=== PATIENT | female | born 1995 | race Caucasian/White ===

== ENCOUNTER 2022-07-17 15:24 | Outpatient (CLI) | payer OTHER, SELFPAY ==
--- NOTE | ~2022-07-17 | XR_ITS ---
EXAMINATION: XR foot RT min 3V DATE: 07/17/2022 16:15 INDICATION: Right foot pain TECHNIQUE: Dorsoplantar, lateral, and 2 oblique views of the right foot were obtained. COMPARISON: None. FINDINGS: There is no fracture, dislocation, or subluxation. The bones, soft tissues, and joint space s are normal. IMPRESSION: 1. No acute osseous abnormality. Reviewed, dictated and finalized at location B.
== END 2022-07-17 15:25 | disposition home or self-care (01) ==
DX: M79.671 Pain in right foot (principal)
CPT/HCPCS: 73630

== ENCOUNTER 2024-05-13 09:31 | Outpatient (CLI) | payer OTHER, SELFPAY ==
[2024-05-13 10:04] VITALS: BP 139/78; PULSE 76
[2024-05-13 10:09] LABS: Basophils Absolute Auto 0.1 K/mm3 (0.0-0.1); Basophils Percent Auto 0.5 % (0.2-1.2); Eosinophils Absolute Auto 0.1 K/mm3 (0-0.3); Eosinophils Percent Auto 1.3 % (0-4.4); Hematocrit 40.6 % (37.0-47.0); Hemoglobin 13.6 g/dL (12.0-15.0); Immature Granulocyte Absolute 0.14 K/mm3 (0.00-0.031); Immature Granulocyte Percent A 1.3 % (0-0.5); Lymphocytes Absolute Auto 1.79 K/mm3 (0.9-3.2); Lymphocytes Percent Auto 16.2 % (18.3-44.2); Mean Corpuscular HGB Conc 33.5 g/dl (32-36); Mean Corpuscular Hemoglobin 30.8 pg (26-34); Mean Corpuscular Volume 91.9 fl (80-100); Monocytes Absolute Auto 0.8 K/mm3 (0.1-0.6); Monocytes Percent Auto 6.8 % (2.6-8.5); Neutrophils Absolute Auto 8.2 K/mm3 (1.3-6.7); Neutrophils Percent Auto 73.9 % (45.5-73.1); Platelet Count Result 161 k/mm3 (150-375); Red Blood Count 4.42 M/mm3 (4.2-5.4); White Blood Count 11.1 K/mm3 (4.5-10.0)
[2024-05-13 10:15] VITALS: BP 124/87; PULSE 75
[2024-05-13 10:15] LABS: Appearance Urine Clear (Clear); Bacteria Urine 3+ /hpf; Bilirubin Urine Negative (Negative); Blood Urine Negative (Negative); Color Urine Yellow (Yellow); Glucose Urine UA Negative (Negative); Ketones Urine Negative (Negative); Leukocyte Esterase Ur Trace LEU/UL (Negative); Nitrate Urine Negative (Negative); Non Pathogenic Casts 0-2; Protein Urine Negative (Negative); Specific Grav Ur 1.013 (1.001-1.035); Squamous Epithelial Cell Urine Few /hpf (Few); Urobilinogen Urine 0.2 mg/dL (<2.0); pH Urine 7.5 (5.0-9.0)
[2024-05-13 10:22] LABS: Alanine Aminotransferase 26 U/L (6-35); Albumin Level 4.2 g/dL (3.5-5.1); Alkaline Phosphatase 163 U/L (38-126); Anion Gap 10 mmol/L (4-12); Aspartate Amino Transferase 26 U/L (14-36); Bilirubin,Total 0.8 mg/dL (0.2-1.3); Blood Urea Nitrogen 8 mg/dL (7-17); Calcium 9.3 mg/dL (8.4-10.2); Carbon Dioxide 21 mmol/L (22-30); Chloride 106 mmol/L (98-107); Estimated Glomerular Filt Rate > 60; Glucose 80 mg/dL (65-110); Potassium 4.1 mmol/L (3.4-5.0); Sodium 137 mmol/L (137-145); Uric Acid 4.1 mg/dL (2.5-7.5)
[2024-05-13 10:30] VITALS: BP 131/80; PULSE 77
[2024-05-13 10:36] LABS: Add Urine Microscopic? YES
[2024-05-13 10:37] LABS: Creatinine Urine 67.4 mg/dL; Total Protein Urine Random 8 mg/dL; Ur Ttl Prot Creatinine Ratio 0.12 mg/mg (0-0.20)
[2024-05-13 10:45] VITALS: BP 132/82; PULSE 77
== END 2024-05-13 11:00 | disposition home or self-care (01) ==
LOC: ANHOBOP 09:43 → ANHOBPP 09:48
PROVIDERS: Visit Provider Obstetrics & Gynecology
DX: O13.9 Gestational [pregnancy-induced] hypertension without significant proteinuria, unspecified trimester (principal); Z3A.00 Weeks of gestation of pregnancy not specified
CPT/HCPCS: 36415; 59025; 80053; 81001; 82570; 84156; 84550; 85025; 87086; 99199

== ENCOUNTER 2024-05-24 12:16 | Inpatient (IN) | payer OTHER, SELFPAY ==
[2024-05-24] VITALS (13 sets, daily range): BP systolic 117–145; BP diastolic 65–107; PULSE 73–107; BMI 33.2
[2024-05-24 13:24] LABS: Basophils Percent Auto 0.4 % (0.2-1.2); Eosinophils Absolute Auto 0.1 K/mm3 (0-0.3); Eosinophils Percent Auto 1.1 % (0-4.4); Hematocrit 39.1 % (37.0-47.0); Hemoglobin 13.2 g/dL (12.0-15.0); Immature Granulocyte Absolute 0.12 K/mm3 (0.00-0.031); Immature Granulocyte Percent A 1.1 % (0-0.5); Lymphocytes Absolute Auto 1.54 K/mm3 (0.9-3.2); Lymphocytes Percent Auto 13.7 % (18.3-44.2); Mean Corpuscular HGB Conc 33.8 g/dl (32-36); Mean Corpuscular Volume 91.8 fl (80-100); Mean Platelet Volume 12.1 fl (7.4-10.4); Monocytes Absolute Auto 0.8 K/mm3 (0.1-0.6); Monocytes Percent Auto 6.7 % (2.6-8.5); Neutrophils Absolute Auto 8.7 K/mm3 (1.3-6.7); Platelet Count Result 154 k/mm3 (150-375); Red Blood Count 4.26 M/mm3 (4.2-5.4); White Blood Count 11.3 K/mm3 (4.5-10.0)
[2024-05-24 13:38] LABS: Alanine Aminotransferase 43 U/L (6-35); Albumin Level 4.2 g/dL (3.5-5.1); Alkaline Phosphatase 189 U/L (38-126); Anion Gap 12 mmol/L (4-12); Aspartate Amino Transferase 26 U/L (14-36); Bilirubin,Total 0.8 mg/dL (0.2-1.3); Blood Urea Nitrogen 9 mg/dL (7-17); Calcium 9.5 mg/dL (8.4-10.2); Carbon Dioxide 18 mmol/L (22-30); Chloride 105 mmol/L (98-107); Estimated Glomerular Filt Rate > 60; Glucose 78 mg/dL (65-110); Potassium 3.9 mmol/L (3.4-5.0); Sodium 135 mmol/L (137-145); Uric Acid 4.2 mg/dL (2.5-7.5)
[2024-05-24] MEDS: miSOPROStol 25 MCG TABLET 50 MCG BUCCAL ×3 (13:38→22:36)
[2024-05-24 14:18] LABS: HIV 1/2 Ab P24 Ag Result Negative (Negative)
--- NOTE | 2024-05-24 16:34 | LDADM ---
This patient, Beata Martinez, was admitted to Labor/Delivery/Recovery 105 on 05/24/24 at 12:16. Plans for labor, pain management and were discussed with patient. Patient/family oriented to hospital policies and general routines including ID bracelet, bed and alarms, visiting hours, pain management, procedures, bathroom and other care routines, personal items, smoking policy, room service/diet and guest tray routines, infant security routines, and visiting hours. Patient/Family are encouraged to report perceived risks to care and to ask questions if they do not understand what they are told or what they should do. See OBIX for further documentation.
--- NOTE | 2024-05-24 17:23 | WPDANESEPP ---
Anes - Eval Pre Procedure Procedure: labor epidural Date/Time: 05/24/24 17:23 Pre Op Diagnosis: IOL Patient Data Age: 28 Gender: F Height: 1.6 m Weight: 85 kg Last Vital Signs Pulse 103 H 05/24/24 17:00 BP 145/98 H 05/24/24 17:00 O2 Del Method Room Air 05/24/24 16:32 Allergies Allergy/AdvReac Type Severity Reaction Status Date / Time PCN Allergy Intermediate Hives Uncoded 05/24/24 16:30 Home Medications Medication Instructions Recorded Confirmed Type vitamin with calcium 1 tablet PO DAILY 05/13/24 05/24/24 History no.72-iron 27 mg-folic acid 1 mg tablet (M- Plus) Laboratory Tests 05/24/24 13:01 WBC 11.3 H K/mm3 (4.5-10.0) RBC 4.26 M/mm3 (4.2-5.4) Hgb 13.2 g/dL (12.0-15.0) Hct 39.1 % (37.0-47.0) MCV 91.8 fl (80-100) MCH 31.0 pg (26-34) MCHC 33.8 g/dl (32-36) RDW 13.0 % (11.5-14.5) Plt Count 154 k/mm3 (150-375) MPV 12.1 H fl (7.4-10.4) Immature Gran % (Auto) 1.1 H % (0-0.5) Neut % (Auto) 77.0 H % (45.5-73.1) Lymph % (Auto) 13.7 L % (18.3-44.2) [place] % (Auto) 6.7 % (2.6-8.5) Eos % (Auto) 1.1 % (0-4.4) Baso % (Auto) 0.4 % (0.2-1.2) Lymph # (Auto) 1.54 K/mm3 (0.9-3.2) [place] # (Auto) 0.8 H K/mm3 (0.1-0.6) Eos # (Auto) 0.1 K/mm3 (0-0.3) Baso # (Auto) 0.0 K/mm3 (0.0-0.1) Abs Immat Gran (auto) 0.12 H K/mm3 (0.00-0.031) Absolute Neuts (auto) 8.7 H K/mm3 (1.3-6.7) Absolute Nucleated RBC 0.000 K/mm3 (0.0-0.012) Nucleated RBC % 0.0 % (0.0-0.2) Sodium 135 L mmol/L (137-145) Potassium 3.9 mmol/L (3.4-5.0) Chloride 105 mmol/L (98-107) Carbon Dioxide 18 L mmol/L (22-30) Anion Gap 12 mmol/L (4-12) BUN 9 mg/dL (7-17) Creatinine 0.60 L mg/dL (0.7-1.0) Estim Creat Clear Calc Not Reportable Estimated GFR > 60 (59 - ) Glucose 78 mg/dL (65-110) Uric Acid 4.2 mg/dL (2.5-7.5) Calcium 9.5 mg/dL (8.4-10.2) Total Bilirubin 0.8 mg/dL (0.2-1.3) AST 26 U/L (14-36) ALT 43 H U/L (6-35) Alkaline Phosphatase 189 H U/L (38-126) Total Protein 7.0 g/dL (6.3-8.2) Albumin 4.2 g/dL (3.5-5.1) RPR Pending HIV 1&2 Ab/P24 Ag 4thGn Negative (Negative) Blood Type A Positive Antibody Screen Negative Patient hx anesthesia problems: none Family hx anesthesia problems: none Results Review: All pre-operative results and documents have been reviewed as part of the pre-operative evaluation. [facility] Past Medical History Medical History PIH ( induced hypertension) Family History Family History Grandparent Diabetes mellitus Social History Social History Smoking status: Never smoker Substance use: never Do You Feel Safe in your Home?: Yes Lack of Transportation: No Lack of Food: Never True Current Housing: I Have Housing Concerned About Future Housing: No Difficulty Paying Gas/Electric Bills: No Difficulty Paying for Meds: No Currently Unemployed: No Education: Master's Degree or Higher Difficulty w/ Childcare or Family Care: No Spiritual care concerns: No Exam Day of Procedure 05/24/24 17:23 Patient weight: obese Heart: regular rate and rhythm Lungs: normal air movement Airway: Mallampati scale Neurological: alert and oriented
[2024-05-24] MEDS: ACETAMINOPHEN 500 MG TABLET 1000 MG PO (18:11)
[2024-05-25] VITALS (116 sets, daily range): BP systolic 76–146; BP diastolic 55–105; PULSE 65–142; RESP 16; TEMP 36.5–36.8; O2SAT 84–100
[2024-05-25] MEDS: miSOPROStol 25 MCG TABLET 50 MCG BUCCAL ×2 (02:30→06:38)
[2024-05-25] MEDS: ONDANSETRON INJ 4 MG/2 ML VIAL IV PUSH (08:44)
--- NOTE | 2024-05-25 08:47 | PM.IMHP ---
H&P: HPI History of Present Illness Date/Time: 05/25/24 08:47 Chief Complaint: gestational hypertension Narrative: Patient is a 28 year old who presents for medical induction of labor, indicated for gestational hypertension. Her blood pressure was elevated in the office today. She reports a mild headache and increased swelling. Denies vision changes, chest pain, dyspnea, RUQ pain or epigastic pain. Her has been otherwise uncomplicated. She denies strong contractions, leakage of fluid or vaginal bleeding. Reports good movement. Review of Systems Review of Systems: All systems reviewed & are unremarkable except as noted in HPI and below PMFSH Past Medical History Medical History PIH ( induced hypertension) Family History Family History Grandparent Diabetes mellitus Social History Social History Smoking status: Never smoker Substance use: never Do You Feel Safe in your Home?: Yes Lack of Transportation: No Lack of Food: Never True Current Housing: I Have Housing Concerned About Future Housing: No Difficulty Paying Gas/Electric Bills: No Difficulty Paying for Meds: No Currently Unemployed: No Education: Master's Degree or Higher Difficulty w/ Childcare or Family Care: No Spiritual care concerns: No Meds Home Medications and Allergies Home Medications Medication Instructions Recorded Confirmed Type vitamin with calcium 1 tablet PO DAILY 05/13/24 05/24/24 History no.72-iron 27 mg-folic acid 1 mg tablet (M- Plus) Allergies Allergy/AdvReac Type Severity Reaction Status Date / Time PCN Allergy Intermediate Hives Uncoded 05/24/24 16:30 Vital Signs Vital Signs - 24 hr 05/24/24 13:00 05/24/24 13:28 05/24/24 13:30 Temperature Pulse Rate 90 81 78 Blood Pressure 133/81 140/79 133/81 Oxygen Delivery 05/24/24 14:00 05/24/24 15:01 05/24/24 15:30 Temperature Pulse Rate 78 73 96 Blood Pressure 117/68 140/83 139/85 Oxygen Delivery 05/24/24 16:00 05/24/24 17:00 05/24/24 17:30 Temperature Pulse Rate 97 103 H 107 H Blood Pressure 143/107 H 145/98 H 138/83 Oxygen Delivery 05/24/24 18:00 05/24/24 18:31 05/24/24 19:00 Temperature Pulse Rate 96 97 75 Blood Pressure 131/93 H 126/65 132/77 Oxygen Delivery 05/24/24 19:31 05/25/24 02:29 05/25/24 02:30 Temperature 98 F Pulse Rate 92 90 Blood Pressure 133/84 125/73 Oxygen Delivery 05/25/24 04:46 05/25/24 05:30 05/25/24 06:15 Temperature Pulse Rate 66 65 73 Blood Pressure 127/73 120/75 101/56 L Oxygen Delivery 05/25/24 07:00 05/24/24 16:32 Temperature Pulse Rate 77 Blood Pressure 125/88 Oxygen Delivery Room Air Exam Const: General: comfortable and no acute distress HENMT: Mouth: Yes moist mucous membranes Resp: Effort & Inspection: normal respiratory effort Cardio: Rate: regular rate Skin: General skin exam: normal color Extrem: General: normal to inspection Psych: Mental Status: mental status grossly normal H&P: Results Labs Labs: Short CBC 05/24/24 Range/Units 13:01 WBC 11.3 H (4.5-10.0) K/mm3 Hgb 13.2 (12.0-15.0) g/dL Hct 39.1 (37.0-47.0) % Plt Count 154 (150-375) k/mm3 BMP 05/24/24 13:01 Sodium 135 L Potassium 3.9 Chloride 105 Carbon Dioxide 18 L BUN 9 Creatinine 0.60 L Glucose 78 Calcium 9.5 Liver Function 05/24/24 Range/Units 13:01 Total Bilirubin 0.8 (0.2-1.3) mg/dL AST 26 (14-36) U/L ALT 43 H (6-35) U/L Alkaline Phosphatase 189 H (38-126) U/L Albumin 4.2 (3.5-5.1) g/dL Assessment and Plan Assessment and plan (1) Gestational hypertension: Code(s): O13.9 - Gestational [-induced] hypertension without significant proteinuria, unspecifi
--- NOTE | 2024-05-25 08:55 | PM.OBPNLAB ---
Pain Control Date/time seen: 05/25/24 08:55 Comments: starting to feel stronger contractions Assessment and Plan Assessment: induction ongoing Plan: continuous present management
[2024-05-25] MEDS: LACTATED RINGERS 1,000 ML 125 ML IV CONT ×3 (09:05→17:12)
[2024-05-25] MEDS: OXYTOCIN 30 UNITS/NS 500 ML 30 UNITS/500 ML BAG IV CONT (11:29)
[2024-05-25 11:56] LABS: Rapid Plasma Reagin Non-Reactive (NonReactive)
--- NOTE | 2024-05-25 13:27 | PM.OBPNLAB ---
Pain Control Date/time seen: 05/25/24 13:27 Pain control: epidural Pelvic Exam Dilation (cm): 5 Effacement (%): 90 station: -2 Amniotic membrane status: Ruptured Comments: AROM of clear fluid Contractions Monitor mode: Internal Status status: Category l Assessment and Plan Assessment: induction ongoing Plan: continuous present management
[2024-05-25] MEDS: OXYTOCIN 30 UNITS/NS 500 ML 30 UNITS/500 ML BAG 125 UNITS IV CONT (15:02)
--- NOTE | 2024-05-25 16:19 | P.PCNOB_ITS ---
OB - Vaginal Delivery Note Procedure Delivery date: 05/25/24 Events: Gestational Hypertension Induction method: Per Misoprostol Protocol Delivery augmentation: Rupture of Membranes and Pitocin Delivery monitor: External FHT and Internal Uterine Route of delivery: Episiotomy description: None Laceration Description: Perineal - 2nd Degree Delivery repair: vicryl Specimen: No Quantitative Blood Loss (ml): 100 Anesthesia type: Epidural Disposition: Floor Complications: No immediate complications Narrative: See H&P and notes for details on patient's admission and labor. She progressed to complete cervical dilation and at the appropriate time began pushing. With adequate expulsive efforts by the mother, the baby's head was delivered without difficulty. Nuchal cord was not present. The baby's right shoulder was anterior and delivered under the pubic symphysis without difficulty. The posterior shoulder and the rest of the baby delivered without difficulty. The umbilical cord was doubly clamped and cut after 60 seconds of delayed cord clamping. Care of the was then assumed by the nursing staff. [place] Baby Date of : 05/25/24 Weeks of gestation at delivery: 39 gender: Male Weight (pounds): 6 Weight (ounces): 11 presentation: vertex position: Left Occiput Anterior Placenta delivery description: Expressed Cord Vessel Description: 3 Vessels and Delayed Cord Clamping
[2024-05-25] MEDS: WITCH HAZEL 40 PADS 1 PAD TOPICAL (16:29)
[2024-05-25] MEDS: IBUPROFEN 600 MG TABLET PO (16:29)
[2024-05-25] MEDS: BENZOCAINE 20% AER SPR (*SP) 56 GM CAN 1 SPRAY TOPICAL (16:29)
[2024-05-25] MEDS: ACETAMINOPHEN 325 MG TABLET 650 MG PO (22:16)
[2024-05-26 00:35] VITALS: BP 121/66; PULSE 68; RESP 18; TEMP 36.8; O2SAT 98
[2024-05-26 04:26] VITALS: BP 135/87; PULSE 72; RESP 18; TEMP 36.7; O2SAT 98
[2024-05-26 05:14] LABS: Hematocrit 35.9 % (37.0-47.0); Hemoglobin 11.9 g/dL (12.0-15.0)
[2024-05-26] MEDS: MULTIVIT/MIN/PREN/FOL AC/IRON TABLET 1 TAB PO (07:23)
[2024-05-26] MEDS: ACETAMINOPHEN 325 MG TABLET 650 MG PO ×2 (07:24→19:41)
[2024-05-26 07:29] VITALS: BP 124/86; PULSE 99; RESP 16; TEMP 36.9
--- NOTE | 2024-05-26 08:31 | PM.OBPNVD ---
OB - PN: Subj Subjective Date/time seen: 05/26/24 08:31 Patient comments: no complaints, pain well controlled, incisional pain, tolerating diet and flatus present OB - PN: Obj Data Labs 05/26/24 03:52 05/24/24 13:01 Labs: Laboratory Results - last 24 hr 05/24/24 05/26/24 13:01 03:52 Hgb 11.9 L Hct 35.9 L RPR Non-reactive OB - PN A/P Plan day: 1 Plan: routine care Comments: No problems, routine care Time Spent With Patient Time: Total time spent is greater than 50% in coordination of care (as documented) at patient's floor/unit and/or counseling patient: Exam Const: General: comfortable, no acute distress and alert Resp: Effort & Inspection: normal respiratory effort Auscultation: no crackles, no rales and no rhonchi Cardio: Rate: regular rate Heart sounds: no click, no murmurs and no rubs GI: Inspection: non-distended GI Palp: No Tenderness to palpation present (GI) Auscultation: normal bowel sounds Other: Incision - CDI Extrem: General: normal to inspection, no pedal edema and no calf tenderness
--- NOTE | 2024-05-26 10:50 | PC.NURSE ---
Consulted with patient to assess needs related to . Discussed with mother her successes, concerns and any questions she has. We reviewed working with the infant, supporting breast, protecting her nipples with an optimal deep latch, good positioning. Encouraged understanding the benefits of skin to skin, responding to feeding cues, frequencies of feeding 8-12 times in 24 hours (approximately 2-3 hours), duration of feedings, milk production, intake/output feeding sheet and signs of adequate intake. Reviewed positioning and alignment, supporting breast, off-centered (asymmetrical latch) and leading with the chin with big, open, wide gape. Baby has a tight jaw and does not open wide very well. With some encouragement, infant latched to the [right] breast in [cross cradle] position. Infant will hold the nipple in his mouth but refuses to suck. We broke the latch and tried again several times. did give one or two sucks but nothing consistent or effective. Education given to the mother of how to visualize the suckling. The was [able] to maintain latch without discomfort to mother, but did not suck. Encouraged mother to pump and give whatever breastmilk she gets, like she has done at the last 2 feedings. Encouraged another feeding in 2 hours with undressed and skin to skin prior to feeding so he can wake up. Mother voiced understanding of the education shared, to call for assistance if the infant does not latch or if there is discomfort with . Reported to the Primary RN. 1140: Assisted patient to bottle feed 5ml of pumped colostrum. Mother is discouraged that she did not pump more. Educated on expected volumes and reassured that this is very typical for most moms in their first days . Parents shown how to burp baby. Patient will call out for assistance at next feeding.
[2024-05-26 12:40] VITALS: BP 132/82; PULSE 86; RESP 18; TEMP 36.6; O2SAT 100
[2024-05-26] MEDS: DOCUSATE SODIUM 100 MG CAPSULE PO ×2 (13:07→19:42)
[2024-05-26] MEDS: IBUPROFEN 600 MG TABLET PO ×2 (13:07→19:42)
--- NOTE | 2024-05-26 14:00 | PC.NURSE ---
Mother called out for assistance with feeding. was dressed and being held. We laid him in the crib and undressed him. He woke up easily and started giving some feeding cues. We attempted in cross cradle on the left breast. He initially latched and suckled once and then stopped. We tried latching again several times with some success. If he did latch he would only hold the nipple in his mouth, and not suck. We tried football position and applied the nipple shield to see if it would stimulate infant's suck reflex. has disorganized tongue movement and would not latch or suck on the shield. After 15 minutes of trying, with giving some good effort to latch but not to suck, we moved on to pumping and supplementing with whatever mom gets. Encouraged mother that infant is still just 24 hours old, and he is showing more interest and effort at the breast with each feeding. Mother feels somewhat discouraged that baby isn't effectively yet. Discussed continuing to attempt and practice at breast each time so mom and baby can learn and work towards effective feeding.
[2024-05-26 16:20] VITALS: BP 134/84; PULSE 89
--- NOTE | 2024-05-26 17:30 | PC.NURSE ---
Called to patient room for feeding. was very sleepy, not easily arousable. We undressed him and placed him in football hold on the right breast. We made many attempts to latch him without the nipple shield, but he would not open his mouth. Even with gentle chin traction we were not able to latch. We placed the nipple shield on and attempted to latch him again. We had some success but refused to suck and would only hold the shield in his mouth. Mother asked about supplementation with formula and has concerns that baby isn't getting enough with the pumped milk she has been giving. Encouraged her that colostrum is different because it is so nutritiously dense. Discussed that since is not over 24 hours old and now effectively feeding, supplementation may be a good option. We discussed weight loss, output and jaundice. Mother would like to proceed with similac supplementation. We tried to have suck on the bottle a few times and then latch to the nipple shield. He gave the most effort to suck on the shield we have seen up to now. His sucking was more of a flutter than a true draw, but we were encouraged that he is making progress. Educated parents on attempting at breast for 15 minutes, pumping and supplementing with breastmilk first and then formula for a total of 15-20 ml. Parents are very agreeable to this plan. Reinforcement needed from primary RN so parents understand the plan at the next feeding. We also discussed calling for assistance from any of her nurses and how to contact services for assistance after discharge. Mother verbalized understanding of the information shared. Father bottle fed 10ml and burped baby and he tolerated it very well.
[2024-05-26 19:49] VITALS: BP 132/84; PULSE 76; RESP 18; TEMP 36.9; O2SAT 99
[2024-05-27 00:13] VITALS: BP 130/82; PULSE 79; RESP 18; TEMP 36.7; O2SAT 99
[2024-05-27] MEDS: IBUPROFEN 600 MG TABLET PO ×2 (04:03→10:51)
[2024-05-27] MEDS: ACETAMINOPHEN 325 MG TABLET 650 MG PO ×2 (04:04→10:51)
[2024-05-27 04:07] VITALS: BP 111/70; PULSE 84; RESP 16; TEMP 35.8; O2SAT 99
[2024-05-27 08:00] VITALS: PULSE 80; RESP 18; O2SAT 100
[2024-05-27 08:10] VITALS: BP 139/84; PULSE 80; RESP 18; TEMP 36.6; O2SAT 100
--- NOTE | 2024-05-27 08:41 | PC.NURSE ---
Patient viewed the discharge video Mother & Baby Care, The First Two Weeks . Patient was given the opportunity and encouraged to ask questions. Patient verbalized understanding of information shared and has been given the mother/baby guide for home reference.
--- NOTE | 2024-05-27 09:41 | PM.OBDSVD ---
DS: Admitting Diagnosis Discharge Date 05/27/24 Admitting Diagnosis gestational hypertension DS: Discharge Diagnosis Discharge Diagnosis (1) Gestational hypertension: Code(s): O13.9 - Gestational [-induced] hypertension without significant proteinuria, unspecified trimester Status: Acute (2) (spontaneous vaginal delivery): Code(s): O80 - Encounter for full-term uncomplicated delivery Status: Acute OB - DS: Summary OB Procedures : None OB Procedures Intrapartum: Spontaneous Vag Delivery OB Procedures: : None Peripartum Data Laceration Description: Perineal - 2nd Degree Episiotomy description: None Time Spent with Patient Time attestation: Total time spent providing and/or coordinating discharge services: Discharge Plan Discharge Attending physician on discharge: Christos Modi Discharging Clinician: Christos Modi Patient Disposition: Home, Self-Care Activity: may shower, as tolerated and pelvic rest Diet: as tolerated Patient Instructions: Antibiotic Form Stand Alone Forms: General Discharge Information Follow-up/Referrals: Christos Modi MD [Physician] - 4 Weeks Discharge Medications: New docusate sodium 100 mg Capsule 100 mg PO BID PRN (Reason: Constipation) Qty: 60 0RF ibuprofen 600 mg Tablet 600 mg PO Q6H PRN (Reason: Cramping) Qty: 30 0RF Continued M- Plus 27 mg iron- 1 mg tablet 1 tablet PO DAILY Date of admission: 05/24/24 12:16 Primary Care Provider: Madelaine Morrison Admitting Provider: Christos Modi Attending physician on admission: Christos Modi Condition: Stable
[2024-05-28 09:55] VITALS: BP 125/82; PULSE 77; RESP 18; TEMP 36.8; O2SAT 100
== END 2024-05-27 11:45 | disposition home or self-care (01) | DRG 807 ==
LOC: ANHLDR 12:25 → ANHOB2 05-25 17:20
PROVIDERS: Admitting Provider Obstetrics & Gynecology; Visit Provider Obstetrics & Gynecology
DX: O13.4 Gestational [pregnancy-induced] hypertension without significant proteinuria, complicating childbirth (principal); Z37.0 Single live birth; Z3A.39 39 weeks gestation of pregnancy; O70.1 Second degree perineal laceration during delivery
CPT/HCPCS: 36415; 80053; 84550; 85014; 85018; 85025; 86592; 86703; 86850; 86900; 86901; A9270; G0432; J2405; J2590; J2795; J7120

== ENCOUNTER 2025-09-14 15:46 | Outpatient (CLI) | payer OTHER, SELFPAY ==
--- NOTE | ~2025-09-14 | US_ITS ---
EXAMINATION: US venous doppler [facility] DATE: 09/14/2025 16:29 INDICATION: . Left lower limb pain and swelling. 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 COMPARISON: None. FINDINGS: The visualized portions of left common femoral vein, profunda (deep) femoral vein, femoral vein, popliteal vein, peroneal veins, posterior tibial veins, gastrocnemius vein and greater saphenous vein outflow are patent. IMPRESSION: 1. No deep venous thrombosis in the left lower limb. Reviewed, dictated and finalized at location A. [employer]
--- OUTSIDE RECORDS SUMMARY | 2025-09-14 15:50 | XMS_ITS | Encounter Summary ---
Author Organization [facility] Health Address [address] [place] [address] Care Team Providers Care Paper Cap Machine Operator Name Role Phone Ximena Lopes MD Primary Care Provider [phone] Encounter Details Date Type Department Care Team (Late st Contact Info) Description 06/18/2013 [facility] Outpatient Visit CG DEFAULT [address] [place] [address] Unknown, Provider Social History Tobacco Use Types Packs/Day Years Used Date Smoking Tobacco: Never Alcohol Use Standard Drinks/Week Comments Not Asked 0 (1 standard drink = 0.6 oz pur e alcohol) Comments No Sex and Gender Information Value Date Recorded Sex Assigned at Not on file Legal Sex Female 6:51 AM [employer] Gender Identity Not on file Sexual Orientation Not on file documented as of this encounter Plan of Treatment Not on file documented as of this encounter Visit Diagnoses Not on filedocumented in this encounter Care Teams Paper Cap Machine Operator Relationship Specialty Start Date End Date Ximena Lopes MD PCP - General Pediatrics 05/18/12 10/11/14 documented as of this encounter
--- OUTSIDE RECORDS SUMMARY | 2025-09-14 15:50 | XMS_ITS | Continuity of Care Document ---
Author Organization [facility], [facility] Address [address] [place] [address] [place] [address] Care Team Providers Care Front Desk Agent Name Role Phone DIONI VERNON Primary Care Provider Assessment No assessment recorded. Plan of Treatment Reminders Order Date Submit Date Provider Last Modified By Organization Details Last Modified Time Details Appointments xANY 2024 02:45P M Patient Financial Coor Not available Not available Not available U/S OB BASELIN E 2024 03:00P M ULTRASOUND Not available Not available Not available OB ROUTINE 2024 04:15P M LUAN MCKEON MD Not available Not available Not available Lab CT + NG + TV, RNA, unspeci fied specime n 2024 025 [facility] (Lab), [address] [place], [address], 08/11/2025 01:24:59 culture , urine 2024 025 [facility] (Lab), [address] [place], [address], 08/11/2025 01:25:00 drug screen, urine 2024 025 [facility], [address], [address], [place], [address], 08/11/2025 01:38:04 Referral None recorde d. Procedures None recorde d. Surgeries None recorde d. Imaging None recorde d. Medication Orders None recorde d. Patient TargetsNo targets recorded. Patient InstructionsNo instructions recorded. Reason for Referral None Reported. Results Created Date Observation Date Name Description Value Unit Range Abnormal Flag Note LastModifiedBy Organization Detail LastModifiedTime 08/09/2008/09/2025 CT/GC AND TRICH OMONA S VAGIN CONSTANCE (RRNA ), URINE chlamydia trachomatis, PCR Negati ve negati ve Not Available [facility] (Lab) [address] [facility], [place], [address], 08/11/2025 01:24:58 08/09/2008/09/2025 CT/GC AND TRICH OMONA S VAGIN CONSTANCE (RRNA ), URINE neisseria gonorrhoeae, PCR Negati ve negati ve Not Available [facility] (Lab) [address] [facility], [place], [address], 08/11/2025 01:24:58 08/09/2008/09/2025 CT/GC AND TRICH OMONA S VAGIN CONSTANCE (RRNA ), URINE trichomonas vaginalis ribosomal RNA (rrna) Negati ve negati ve 49_CL _SOUR CETVG : Urine - Bladd er Not Available [facility] (Lab) [address] [facility], [place], [address], 08/11/2025 01:24:58 08/09/2008/09/2025 CULTU RE: URINE result report SEE RESULT S BELOW Test: Cultu re: Urine Speci men Sourc e: Urine - Clean Catch Speci men Type: Urine Speci men Date: 2024 1633 Resul t Date: 08/11 0021 Resul t Statu s: Final resul t Abnor mal: No Resul ting Lab: [facility] [address] [facility] [address] Tel: CULTU RE ----- ----- ----- --- Cultu re resul t (>=3 organ isms prese nt) indic ates possi ble conta minat ion. Repea t cultu re if sympt oms indic ate. Not Available [facility] (Lab) [address], [place], [address], 08/11/2025 01:25:00 08/09/2008/09/2025 US, obste tric, nucha l trans lucen cy No observ ation record ed. [facility] [address], [place], [address], 08/09/2025 17:34:54 08/09/2008/09/2025 US, obste tric, nucha l trans lucen cy No observ ation record ed. [email or web address] [address], [place], [address], 08/11/2025 01:38:49 Result Notes None recorded. Problems Name Problem SNOMED Code Status Onset Date Resolution Date Notes Provider Name and Address Organization Details Recorded Time Small for gestatio nal age fetus 491546534 Completed MFM referral faxed 01/12 [facility] MFM- schedule d 01-21 230 Level II US only [facility] MFM LUAN MCKEON MD [address], [place], [address], [place] [facility] 4 14:19:39 Uses combined oral contrace ption 234118304 Completed 201601/04/2021 Encounte r for initial prescrip tion of contrace ptive pills;Re corded Elsewher e: No Locat ion: [facility] S ource: EHR Media Strategist wiley: N Shelby ce ID: [id number] Rafiq lable Time: 01:45:00 PM Dona noe [facility] 1 11:37:[address] Concept Completed 201701/04/2021 Encntr for goodwill representative exam (general ) (routine ) w/o abn findings ;Recorde d Elsewher e: No Locat ion: [facility] S ource: EHR Media Strategist wiley: N Juanpabloti ce ID: [id number] Rafiq lable Time: 09:00:00 AM Dona noe [facility] 1 11:37:49 Screenin g for malignan t neoplasm of cervix Completed 201701/04/2021 Encounte r for screenin g for malignan t neoplasm of cervix;R ecorded Elsewher e: No Locat ion: [facility] S ource: EHR Media Strategist wiley: N Practi ce ID: [id number] Rafiq lable Time: 09:00:00 AM Dona noe [facility] 11:37:[address] Concept Completed 201801/04/2021 Encntr for routine child health exam w/o abnormal findings ;Recorde d Elsewher e: No Locat ion: [facility] S ource: EHR Media Strategist wiley: N Practi ce ID: [id number] Rafiq lable Time: 08:15:00 AM Dona noe, [facility] 1 11:37:47 Pregnanc y [id number] Completed 202305/27/2024 Kenna Handbebe [facility], [facility] 5 17:05:02 Pregnanc y 42685678 Active 2024 Kenna Handbebe [facility] 5 17:05:02 Past pregnanc y history of gestatio nal hyperten eulogio 990442929 Active 2024 Sumit MCKEON MD [address], [place], [address], [facility] 5 14:00:08 Notes:MFM referral [facility] faxed 01/12 [facility] Problem Notes None recorded. Procedures Surgical History Date Name Laterality Status Provider Name and Address Organization Details Recorded Time 3 Date of Last Pap Smear completed Anne Gonzalez [facility] 03/24/2024 14:59:37 01/01/201 6 extraction of wisdom tooth completed Dona Hancock [facility] 01/04/2021 11:39:26 Imaging Results None recorded. Procedure Notes None recorded. Medical Equipment None Reported. Allergies Allergen ID Allergen Name Allergen Category Reaction Reaction Severity Criticality Documentation Date Start Date Code Code System Note Provider Name and Address Organization Details Recorded Time 38218 Product containin g penicilli n (product) medicatio n Not available Not available Not available 10/19/2020 99523 8001 SNOMED Comme nt: [facility]at [facility]: [facility]; Not Available [facility] 0 14:17:57 Medications Name Sig Start Date Stop Date Status Note LastModified by Organization Details LastModified Time fluconazo le 150 mg tablet TAKE 1 TABLET BY MOUTH EVERY DAY FOR 1 DAY 07/18 completed Not Available Not Available Not Available ondansetr on HCl 4 mg tablet TAKE 1 TABLET BY MOUTH TWICE A DAY NEEDED FOR 7 DAYS 07/18 completed Not Available Not Available Not Available tretinoin 0.05 % topical cream APPLY TO AFFECTED AREA EVERY DAY AT BEDTIME 07/18 completed Not Available Not Available Not Available ciproflox acin 500 mg tablet TAKE 1 TABLET BY MOUTH EVERY 12 HOURS FOR 7 DAYS 10/16 completed Not Available Not Available Not Available cephalexi n 500 mg capsule TAKE 1 CAPSULE BY MOUTH EVERY 8 HOURS FOR 7 DAYS 12/06 completed Not Available Not Available Not Available polymyxin B sulfate 10,000 unit-trim ethoprim 1 mg/mL eye drops 07/18 completed Not Available Not Available Not Available ibuprofen 600 mg tablet TAKE 1 TABLET 3 TIMES A DAY BY ORAL ROUTE NEEDED. 07/18 completed Not Available Not Available Not Available scopolami ne 1 mg over 3 days transderm al patch APPLY 1 PATCH EVERY 72 HOURS BY TRANSDER MAL ROUTE FOR 9 DAYS 10/16 completed Not Available Not Available Not Available albuterol sulfate HFA 90 mcg/actua tion aerosol inhaler INHALE 1 PUFF 3 TIMES A DAY BY INHALATI ON ROUTE NEEDED FOR 30 DAYS. 07/18 completed Not Available Not Available Not Available ketoconaz ole 2 % topical cream APPLY TO THE AFFECTED AREA(S) BY TOPICAL ROUTE ONCE DAILY X 2 WEEKS 10/16 completed Not Available Not Available Not Available Ortho Tri-Cycle n (28) 0.18 mg(7)/0.2 15mg(7)/0 .25 mg(7)-0.0 35 mg tablet take 1 tablet by oral route every day 02/26 completed Prescrib ed Caren e: No Locat ion: Nora howell [facility] M odify By: [email or web address] Encounmima r DateTime : 02/21/20 17 01:45:00 PM Not Available Not Available Not Available FE 11/21 (28) 1 mg-20 mcg (21)/75 mg (7) tablet active Not Available Not Available Not Available nitrofura ntoin monohydra te/macroc rystals 100 mg capsule TAKE 1 CAPSULE BY MOUTH EVERY 12 HOURS FOR 7 DAYS 07/18 completed Not Available Not Available Not Available Tylenol 07/18 completed Not Available Not Available Not Available active Not Available Not Avai lable Not Available PNV-DHA 27 mg iron-1 mg-300 mg capsule TAKE 1 CAPSULE BY MOUTH EVERY DAY active Not Available Not Available No t Available 28 mg iron-800 mcg tablet Take 1 tablet by mouth daily 12/06 completed Not Available Not Available Not Available 40-iron fum 27 mg iron-foli c acid 800 mcg-dha 250 mg capsule take 1 tablet daily 2024 active Not Available Not Available Not Avai lable Aprill Fe 24 1 mg-20 mcg (24)/75 mg (4) tablet Take 1 tablet every day by oral route. 07/07 completed Not Available Not Available Not Available M- Plus 27 mg iron-1 mg tablet TAKE 1 TABLET BY MOUTH EVERY DAY 07/18 completed Not Available Not Available Not Available Multi-DHA (with vitamin K) 27 mg iron-800 mcg-260 mg capsule Take 1 capsule every day by oral route. 2024 active Not Available Not Available Not Avai lable Slynd 4 mg (28) tablet TAKE 1 TABLET BY MOUTH EVERY DAY 07/18 completed Not Available Not Available Not Available Flowflex COVID-19 Antigen Home Test kit REFER TO MANUFACT MILLA [employer]STRU[employer] IONS INCLUDED IN PACKAGIN G 10/16 completed Not Available Not Available Not Available Vitals Date Recorded Body height Body mass index (BMI) Body weight Systolic And Diastolic Provider Name and Address Organization Details Last Updated DateTime 08/09/2025 160.02 cm 28.5 kg/m2 27072.37 g 137/84 mm[Hg] Kenna Sawyer [facility] 08/09/2025 17:03:52 Social History Question Answer Notes LastModified by Organizat ion Details LastModified Time Tobacco Smoking Status Never Smoker Dona Santi noe, [facility] 01/04/2021 11:39:12 If You Are , What Was Your Level Of Alcohol Consumption Prior To ? None [email or web address] Information not available 01/04/2021 Are You Blind Or Do You Have Difficulty Seeing? No [email or web address] Information n ot available 01/04/2021 What Is Your Level Of Caffeine Consumption? Moderate [email or web address] Information not available 01/04/2021 In The 14 Days Before Symptom Onset, Have You Had Close Contact With A Laboratory-confirm ed COVID-19 While That Case Was Ill? No [email or web address] Information n ot available 01/04/2021 In The 14 Days Before Symptom Onset, Have You Had Close Contact With A Person Who Is Under Investigation For COVID-19 While That Person Was Ill? No [email or web address] Information not available 01/04/2021 Have You Been To An Area Known To Be High Risk For COVID-19? No [email or web address] Information not available 01/04/2021 Are You Deaf Or Do You Have Serious Difficulty Hearing? No [email or web address] Information not available 01/04/2021 What Type Of Diet Are You Following? REGULAR [email or web address] Information n ot available 01/04/2021 Have You Ever Been Counseled For Unhealthy Alcohol Use? No [email or web address] Information not available 01/04/2021 Do You Use Your Seat Belt Or Car Seat Routinely? Yes [email or web address] Information not available 01/04/2021 Are You Sexually Active? Yes [email or web address] Information not available 03/24/2024 Do You Have Smoke And Carbon Monoxide Detectors In Your Home? Yes Information not available 01/04/2021 Do You Use Sunscreen Routinely? Yes [email or web address] Information not available 01/04/2021 Has Tobacco Cessation Counseling Been Provided? No [email or web address] Information not available 01/04/2021 Do You Have Difficulty Walking Or Climbing Stairs? No [email or web address] Information not available 03/24/2024 Sex: Unknown Functional Status Question Answer Note LastModified by Organizat ion Details LastModified Time Do you use any illicit or recreational drugs? No [email or web address] Information not available 01/04/2021 Do you or have you ever used any other forms of tobacco or nicotine? No [email or web address] Information not available 01/04/2021 What is your level of alcohol consumption? Occasional [email or web address] Information not available 01/04/2021 Are you able to walk independently without assistance or assistive devices? YESWOREST [email or web address] Information not available 01/04/2021 Are you able to care for yourself independently? Yes [email or web address] Information not available 03/24/2024 Do you have difficulty dressing, bathing, grooming, or toileting? No [email or web address] Information not available 03/24/2024 What is your exercise level? Occasional [email or web address] Information not available 01/04/2021 Mental Status Question Answer Note LastModified by Organization D etails LastModified Time Do you feel stressed (tense, restless, nervous, or anxious, or unable to sleep at night)? [id number] Information not available 01/04/2021 Family History Relationship Description Onset Age of this Age Resolved Age Notes LastModified by Organization Details LastModified Time Maternal Grandmother Diabetes mellitus [email or web address] Not available 01/03 17:50:54 Maternal Aunt Malignant neoplasm of breast 50 [email or web address] Not available 01/04 18:38:25 Maternal Grandfather Malignant neoplasm of colon 82 [email or web address] Not available 01/04 18:38:51 Medical History Condition Response Allergies (Food, seasonal, environmental ) N Other N Breast Cancer N Drug/Latex Allergies/Reactions N Blood Transfusion N Dermatologic Disorders N Lung Disease N Defects or Inherited Disease N Breast Problem N Gestational Diabetes N Hematologic disorders N Anesthesia Complications N History of STI N Deep Vein Thrombosis N Polycystic ovary syndrome N Anxiety Disorder N Autoimmune disease N Arthritis N Infertility N Polyps N Acid Reflux (GERD) N History of abnormal pap N Cancer N Stroke N Varicosities N Neurologic/Epilepsy N Endometriosis N High Cholesterol N Headaches N Fibromyalgia N Kidney Disease N Heart Problems N Kidney or Bladder Problems N Thyroid Problems N GI Problems N Eating Disorder N Anemia N Art (IVF or FET) N Psychiatric Illness N Ovarian Cancer N Diabetes N Pulmonary (TB, Asthma) N Hepatitis/Liver Disease N No Past Medical History N Eczema N Urinary Tract Infection N Abuse/Domestic Violence N Asthma N Trauma/Violence N Depression/ depression N Heart Disease N Pre-Eclampsia N Hypertension N Osteoporosis N Thrombophilias N Gynecological History Statement/Question Response Flow Moderate Date of LMP 05/16/2025 On BCP's at Conception? N Was last menstrual period normal Y STIs/STDs N HPV Vaccine N Duration of Flow (days) 7 Current Control Method Are cycles usually normal Y Date of Last Colonoscopy Sexually Active? Y Menses Monthly Y Age of first menstrual cycle 15 Date of Last Pap Smear 07/07/2023 Sexual Problems? N LMP Definite Obstetrics History GPAL:G 2 P 1 0 0 1 Type Value Full Term 1 Living 1 Total 2 Past Encounters Encounter ID Performer Location Encounter Start Date Encounter Closed Date Diagnosis/Indication Diagnosis SNOMED-CT Code Diagnosis ICD10 Code Diagnosis IMO Codes Diagnosis Note [id number] LUAN MCKEON MD [facility] [address] [address] 07/10/2025 15:56:03 07/10/2025 16:25:50 Threatened miscarriage 39028944 O20.0 Z3A.01 [id number] LUAN MCKEON MD [facility] [address] [address] 07/18/2025 17:11:39 07/18/2025 17:55:30 test positive [id number] Z32.01 [id number] 1. Exam today within normal limits.2. Ultrasound today confirms GA and viability. EDC . GC/Clamydi a testing done: will f/u as indicated. 4. ACOG guidelines and plan of care for reviewed with patient. All questions answered.5 . Return to office at 12 weeks for new OB visit6. Will need new OB labs at next visit.7. Genetic screening: desires at 10 weeks. screening 8507 18510 Z36.0 [id number] LUAN MCKEON MD [facility] [address] [address] 08/09/2025 16:22:26 08/09/2025 16:58:31 screening 685889205 Z36.82 Z3A.12 [id number] LUAN MCKEON MD [facility] [address] [address] 08/09/2025 16:23:30 08/10/2025 14:24:12 state of fetus 77172272 Z34.90 4972316861 Past pregn erick history of gestational hypertension 757980717 Z87.59 [id number] Health Concerns Section Related Observation LastModified by Organization Detai ls LastModified Time None Recorded Concern Status LastModified by Organization Details LastModified Time None Recorded Payers Encounter Date Sequence Insurance Name Policy Number Policy Bailey Covered Member ID Bailey Member ID Guarantor Name 08/09/2025 1 [employer] (POS II) [id number] Beata Martinez [id number] Beata Martinez OBGyn Episode Ob Episode Information Episode Created Date Number of Fetuses Patient Bloodtype Patient rh Status Prepregnancy Weight lbs Domestic Partner Domestic Partner Phone Father Name Hand Sewer Status 08/09/20 25 1 A Positive Juan Diego OPEN Fetus Data First Name Last Name Admitted to NICU Weight (g) Sex Living Outcome Pediatric Complications Fetus ID Race Codes Race Delivery Type [id number] Problems Problem Notes Problem Name Start Date End Date Resolution Snomed Code Not e Past history of gestational hypertension 08/10/2025 [id number] bAS A ppx Artem Calculation Initial Artem Date Initial Exam Date Initial Exam Provider Initial Ultrasound Date Last Menstrual Period Date Ultra Sound Weeks Gestation 08/09/2025 07/10/2025 05/16/2025 7 Eighteen To Twenty Week Artem Update Ultra Sound Date Fundal Height At Umbil Quickening Date Ultra Sound Latest Weeks Gestation Final Artem Confirmed By Final Artem Confirmed Date Final Artem Date Ultra Sound Latest Days Gestation 0 02/21/20 26 0 Pre-mckayla Flowsheet Flowsheet Date 08/09/2025 Bauer Score Blood Edema Fundus Height Fundus Units Glucose Ketones Leukocytes Nitrite Labor Signs Protein Cervic Dilation Cervic Effacement Cervic Station Type Weight in lbs Pre/Post Dialysis Refused Weight 161.208669127190 BP Diastolic BP Location Tested BP Systolic BP Type 84 L arm 137 sitting Fetus Heart Rate Present A Present Fetus Movement Comments Patient presents to [facility] care. Hx of gestational HTN, discussed bASA ppx. otherwise uncomplicated. No nausea or cramping. NT/NB wnl today. LR female NIPT! Other OB labs wnl. RTC 4 weeks for routine care. Flowsheet Date 09/06/2025 Bauer Score Blood Edema Fundus Height Fundus Units Glucose Ketones Leukocytes Nitrite Labor Signs Protein Cervic Dilation Cervic Effacement Cervic Station Type Weight in lbs Pre/Post Dialysis Refused Weight 164.039523720154 BP Diastolic BP Location Tested BP Systolic BP Type 79 L arm 135 sitting Fetus Heart Rate Present A 150 Fetus Movement A No Comments Doing well, no issues. Some movement. Discussed anatomy US for next visit. BP normotensive today. RTC 4 weeks. Menstrual History Last Menstrual Date Menses Monthly On Bcp Conception Prior Menses Frequency Hcg Plus Date Menarche Onset Age 0705/16/2025 Delivery Information Delivery Date Delivery Type Labor Anesthesia Weeks Gestation Incision Type Labor Labor Length Hrs Delivered By Post Complications Tubal Sterilization Discharge Date Comments Discharge Information Feeding Method Contraceptive Method Maternal HG B and HCT Levels
--- OUTSIDE RECORDS SUMMARY | 2025-09-14 15:51 | XMS_ITS | Data Portability ---
Author Organization [facility] Address [address] [place] [address] [place] [address] Care Team Providers Care Electrician Supervisor Name Role Phone DIONI VERNON Primary Care [...] RNA, unspeci fied specime n 2024 025 [facility] (Lab), [address] [facility], [place], [address], 08/11/2025 01:24:59 culture , urine 2024 025 [facility] (Lab), [address] [place], [address], 08/11/2025 01:25:00 drug screen, urine 2024 025 [facility], [address], [address], [place], [address], 08/11/2025 01:38:04 aneuplo idy risk, chromos ome specifi c circula ting cell free (ccf) DNA, materna l serum 2024 025 [facility], [address], [place], [address], 07/31/2025 21:14:58 HbA1c (hemogl obin A1c), blood 2024 025 [facility] (Lab), [address], [place], [address], 07/27/2025 14:58:52 type + screen, blood 2024 025 [facility] (Lab), [address], [place], [address], 07/27/2025 14:58:51 rubella igg Ab, titer, serum 2024 025 [facility] (Lab), [address], [address], 07/27/2025 14:58:52 CBC w/ auto diff 2024 025 [facility] (Lab), [address], [place], [address], 07/27/2025 14:58:49 hepatit is C virus Ab, serum 2024 025 [facility] (Lab), [address] [place], [address], 07/27/2025 14:58:51 HBsAg (hepati tis B surface Ag), serum 2024 025 [facility] (Lab), [address], [place], [address], 07/27/2025 14:58:50 RPR (rapid plasma reagin) , serum 2024 025 [facility] (Lab), [address], [place], [address], 07/27/2025 14:58:53 HIV 1+2 AB + HIV 1 p24 Ag, qualita tiasmita immunoa ssay, serum 2024 025 [facility] (Lab), [address], [place], [address], 07/27/2025 14:58:50 Referral None recorde d. Procedures None recorde d. Surgeries None recorde d. Imaging US, obstetr ic, nuchal translu cency 2024 025 [id number] [address], [address], [place], [address], 08/10/2025 15:56:52 US, obstetr ic, 1st trimest er 2024 025 [id number] [address], [address], [place], [address], 07/11/2025 14:40:35 Medication Orders None recorde d. Patient TargetsNo targets recorded. Patient InstructionsNo instructions recorded. Reason for Referral None Reported. Results Created Date Observation Date Name Description Value Unit Range Abnormal Flag Note LastModifiedBy Organization Detail LastModifiedTime 07/31/2007/31/2025 [UNIT Y] ANEUP LOIDY NIPT fraction 6.3% normal Not Available [facility] [address], [place], [address], 07/31/2025 21:14:58 07/31/2007/31/2025 [UNIT Y] ANEUP LOIDY NIPT 22Q11.2 microdeletio n LOW RISK <1 in 10,000 normal Not Available [facility] [address], [place], [address], 07/31/2025 21:14:58 07/31/2007/31/2025 [UNIT Y] ANEUP LOIDY NIPT sex chromosome aneuploidy NOT DETECT ED normal Not Available [facility] [address], [place], [address], 07/31/2025 21:14:58 07/31/20 25 07/31/2025 [UNIT Y] ANEUP LOIDY NIPT monosomy X LOW RISK <1 in 10,000 normal Not Available [facility] [address], [place], [address], 07/31/2025 21:14:58 07/31/20 25 07/31/2025 [UNIT Y] ANEUP LOIDY NIPT trisomy 13 LOW RISK <1 in 10,000 normal Not Available [facility] [address], [place], [address], 07/31/2025 21:14:58 07/31/20 25 07/31/2025 [UNIT Y] ANEUP LOIDY NIPT trisomy 18 LOW RISK <1 in 10,000 normal Not Available [facility] [address], [place], [address], 07/31/2025 21:14:58 07/31/20 25 07/31/2025 [UNIT Y] ANEUP LOIDY NIPT trisomy 21 LOW RISK <1 in 10,000 normal Not Available [facility] [address], [place], [address], 07/31/2025 21:14:58 07/31/20 25 07/31/2025 [UNIT Y] ANEUP LOIDY NIPT sex FEMALE normal Not Available [facility] [address], [place], [address], 07/31/2025 21:14:58 07/31/20 25 07/31/2025 [UNIT Y] ANEUP LOIDY NIPT gestation SINGLE TON normal Not Available [facility] [address], [place], [address], 07/31/2025 21:14:58 07/31/20 25 07/31/2025 [UNIT Y] ANEUP LOIDY NIPT for detailed report, see pdf See PDF normal Not Available [facility] [address], [place], [address], 07/31/2025 21:14:58 07/26/2007/26/2025 CBC W/DIF F WBC 9.4 10'3/ uL 3.5-10 .5 Not Available [facility] (Lab) [address], [place], [address], 07/27/2025 14:58:49 07/26/20 25 07/26/2025 CBC W/DIF F RBC 4.60 10'6/ uL (based on docume nted legal sex) 3.80-5 .20 Not Available [facility] (Lab) [address], [place], [address], 07/27/2025 14:58:49 07/26/2007/26/2025 CBC W/DIF F HGB 13.7 g/dL (based on docume nted legal sex) 11.6-1 5.4 Not Available [facility] (Lab) [address], [place], [address], 07/27/2025 14:58:49 07/26/2007/26/2025 CBC W/DIF F HCT 42.3 % (based on docume nted legal sex) 34.0-4 5.0 Not Available [facility] (Lab) [address], [place], [address], 07/27/2025 14:58:49 07/26/2007/26/2025 CBC W/DIF F MCV 92.0 fL 80.0-9 9.0 Not Available [facility] (Lab) [address] [place], [address], 07/27/2025 14:58:49 07/26/2007/26/2025 CBC W/DIF F MCH 29.8 pg 27.0-3 4.0 Not Available [facility] (Lab) [address] [place], [address], 07/27/2025 14:58:49 07/26/2007/26/2025 CBC W/DIF F MCHC 32.4 g/dL 32.0-3 5.5 Not Available [facility] (Lab) [address] [facility], [place], [address], 07/27/2025 14:58:49 07/26/2007/26/2025 CBC W/DIF F RDW 12.4 % 11.0-1 5.0 Not Available [facility] (Lab) [address] [facility], [place], [address], 07/27/2025 14:58:49 07/26/2007/26/2025 CBC W/DIF F plt 219 10'3/ uL 150-40 0 Not Available [facility] (Lab) [address] [facility], [place], [address], 07/27/2025 14:58:49 07/26/20 25 07/26/2025 CBC W/DIF F MPV 11.9 fL 8.8-12 .1 Not Available [facility] (Lab) [address] [facility], [place], [address], 07/27/2025 14:58:49 07/26/20 25 07/26/2025 CBC W/DIF F NRBC's 0.0 % 0.0 Not Available [facility] (Lab) [address] [facility], [place], [address], 07/27/2025 14:58:49 07/26/2007/26/2025 CBC W/DIF F absolute NRBCs 0.0 10'3/ uL no refere nce range establ ished Not Available [facility] (Lab) [address] [facility], [place], [address], 07/27/2025 14:58:49 07/26/20 25 07/26/2025 CBC W/DIF F neutrophils 75.8 % 34.0-7 3.0 high Not Available [facility] (Lab) [address] [facility], [place], [address], 07/27/2025 14:58:49 07/26/2007/26/2025 CBC W/DIF F lymphocytes 16.6 % 15.0-5 0.0 Not Available [facility] (Lab) [address] [facility], [place], [address], 07/27/2025 14:58:49 07/26/2007/26/2025 CBC W/DIF F monocytes 5.6 % 1.0-15 .0 Not Available [facility] (Lab) [address] [facility], [place], [address], 07/27/2025 14:58:49 07/26/2007/26/2025 CBC W/DIF F eosinophils 1.2 % 0.0-8. 0 Not Available [facility] (Lab) [address] [facility], [place], [address], 07/27/2025 14:58:49 07/26/2007/26/2025 CBC W/DIF F basophils 0.5 % 0.0-2. 0 Not Available [facility] (Lab) [address] [place], [address], 07/27/2025 14:58:49 07/26/2007/26/2025 CBC W/DIF F immature granulocytes 0.3 % no define d refere nce range Immat ure Granu locyt es (IG) repre sents autom ated enume ratio n of Metam yeloc ytes, Myelo cytes and Promy elocy yanni when IG is < 5%. Blast s are not inclu ded in IG and repor mamadou separ ately if prese nt. Not Available [facility] (Lab) [address] [facility], [place], [address], 07/27/2025 14:58:49 07/26/2007/26/2025 CBC W/DIF F absolute neutrophils 7.1 10'3/ uL 1.5-8. 0 Not Available [facility] (Lab) [address] [facility], [place], [address], 07/27/2025 14:58:49 07/26/2007/26/2025 CBC W/DIF F absolute lymphocytes 1.6 10'3/ uL 1.0-4. 0 Not Available [facility] (Lab) [address] [place], [address], 07/27/2025 14:58:49 07/26/2007/26/2025 CBC W/DIF F absolute monocytes 0.5 10'3/ uL 0.2-1. 0 Not Available [facility] (Lab) [address] [facility], [place], [address], 07/27/2025 14:58:49 07/26/2007/26/2025 CBC W/DIF F absolute eosinophils 0.1 10'3/ uL 0.0-0. 6 Not Available [facility] (Lab) [address] [facility], [place], [address], 07/27/2025 14:58:49 07/26/2007/26/2025 CBC W/DIF F absolute basophils 0.1 10'3/ uL 0.0-0. 3 Not Available [facility] (Lab) [address] [place], [address], 07/27/2025 14:58:49 07/26/2007/26/2025 CBC W/DIF F absolute immature granulocytes 0.0 10'3/ uL 0.00-0 .10 Refer ence range s for nonbi nary/ inter sex or unspe cifie d gende r patie nts have not been estab lishe d. Pleas e refer to the chapin lock table for range s estab lishe d for cisge nder patie nts and evalu ate in the clini eric moon xt of the indiv idual patie nt: https :[email or web address] naik book. nm.or g/gen derx Not Available [facility] (Lab) [address] [facility], [place], [address], 07/27/2025 14:58:49 07/26/2007/26/2025 HIV 1/2 ANTIG EN/AN TIBOD Y, REFLE X CONFI RMATI ON HIV antigen/anti body Nonrea ctive nonrea ctive HIV-1 antig en and HIV-1 /HIV- 2 antib odies were not detec mamadou. No labor atory evide nce of HIV infec tion. Not Available [facility] (Lab) [address] [facility], [place], [address], 07/27/2025 14:58:50 07/26/2007/26/2025 HEPAT ITIS B SURFA CE ANTIG EN hepatitis B surface antigen Non-re active non-re active This assay was perfo rmed using [employer] ratio n reage nts and test kits. Value s obtai jennifer with other assay metho ds or kits canno t be used inter sanches eably . Not Available [facility] (Lab) [address] [facility], [place], [address], 07/27/2025 14:58:50 07/26/20 25 07/26/2025 HEPAT ITIS C ANTIB ESTEBAN SCREE N, REFLE X TO CONFI RMATI ON hepatitis C antibody Non-re active non-re active Antib odies to HCV Not Detec mamadou, does not exclu de the possi bilit y of expos ure to HCV. Not Available [facility] (Lab) [address] [place], [address], 07/27/2025 14:58:51 07/26/2007/26/2025 TYPE/ RH/SC REEN ABO/Rh type A POS Not Available [facility] (Lab) [address] , [place], [address], 07/27/2025 14:58:51 07/26/20 25 07/26/2025 TYPE/ RH/SC REEN antibody screen NEG Not Available [facility] (Lab) [address] [facility], [place], [address], 07/27/2025 14:58:51 07/26/20 25 07/26/2025 TYPE/ RH/SC REEN exp date 2024 23:59 Not Available [facility] (Lab) [address] [facility], [place], [address], 07/27/2025 14:58:51 07/26/2007/26/2025 RUBEL LA IGG ANTIB ESTEBAN, QUANT rubella antibodies, IgG Reacti ve reacti ve Not Available [facility] (Lab) [address] [facility], [place], [address], 07/27/2025 14:58:52 07/26/20 25 07/26/2025 RUBEL LA IGG ANTIB ESTEBAN, QUANT rubella antibodies, IgG quant 19.3 IU/mL >=10 Non-r eacti ve (Non- Immun e) <10 IU/mL React farhad (Immu ne) > or = 10 IU/mL Not Available [facility] (Lab) [address] [facility], [place], [address], 07/27/2025 14:58:52 07/26/2007/26/2025 HEMOG LOBIN A1C hemoglobin A1C 5.0 % 4.0-5. 6 The Ameri can Diabe yanni Assoc iatio n recom mends that a prima ry goal of thera py shelbie pitt be a HBA1C of < 7% and that physi cians shoul d reeva luate the treat ment regim en in patie nts with HBA1C value s consi stent ly > 8%. <5.7% Summer l 5.7 - 6.4% Incre ased risk for diabe yanni >=6.5 % Diagn ostic of diabe yanni <7.0% Goal of thera py >8.0% Actio n sugge sted Not Available [facility] (Lab) [address] [facility], [place], [address], 07/27/2025 14:58:52 07/26/2007/26/2025 RPR SCREE N, REFLE X TITER /CONF IRMAT ION RPR qualitative Nonrea ctive nonrea ctive Not Available [facility] (Lab) [address] [place], [address], 07/27/2025 14:58:52 08/09/2008/09/2025 CT/GC AND TRICH OMONA S VAGIN CONSTANCE (RRNA ), URINE chlamydia trachomatis, PCR Negati ve negati ve Not Available [facility] (Lab) [address] [facility], [place], [address], 08/11/2025 01:24:58 08/09/2008/09/2025 CT/GC AND TRICH OMONA S VAGIN CONSTANCE (RRNA ), URINE neisseria gonorrhoeae, PCR Negati ve negati ve Not Available [facility] (Lab) [address] [place], [address], 08/11/2025 01:24:58 08/09/2008/09/2025 CT/GC AND TRICH OMONA S VAGIN CONSTANCE (RRNA ), URINE trichomonas vaginalis ribosomal RNA (rrna) [place] [address] 49_CL _SOUR CETVG : Urine - Bladd er Not Available [facility] (Lab) [address] [place], [address], 08/11/2025 01:24:58 08/09/2008/09/2025 CULTU RE: URINE result report SEE RESULT S BELOW Test: Cultu re: Urine Speci men Sourc e: Urine - Clean Catch Speci men Type: Urine Speci men Date: 2024 1633 Resul t Date: 08/11 0021 Resul t Statu s: Final resul t Abnor mal: No Resul ting Lab: [facility] [address] [facility] [address] Tel: [phone] CULTU RE ----- ----- ----- --- Cultu re resul t (>=3 organ isms prese nt) indic ates possi ble conta minat ion. Repea t cultu re if sympt oms indic ate. Not Available [facility] (Lab) [address], [place], [address], 08/11/2025 01:25:00 07/10/20 25 07/10/2025 US, obste tric, 1st trime ster No observ ation record ed. [email or web address] [facility] [address], [place], [address], 07/10/2025 18:18:33 07/10/20 25 07/10/2025 US, obste tric, 1st trime ster No observ ation record ed. KIMBERLI [address], [place], [address], 07/13/2025 17:28:36 08/09/20 25 08/09/2025 US, obste tric, nucha l trans lucen cy No observ ation record ed. [email or web address] [place] [address], [place], [address], 08/09/2025 17:34:54 08/09/20 25 08/09/2025 US, obste tric, nucha l trans lucen cy No observ ation record ed. [email or web address] [address], [place], [address], 08/11/2025 01:38:49 Result Notes None recorded. Problems Name Problem SNOMED Code Status Onset Date Resolution Date Notes Provider Name and Address Organization Details Recorded Time Small for gestatio nal age fetus 487032138 Completed MFM referral faxed 01/12 [facility]- schedule d 01-21 230 Level II US only [facility] LUAN MCKEON MD [address], [place], [address], [facility] 4 14:19:39 Uses combined oral contrace ption 086901209 Completed 201601/04/2021 Encounte r for initial prescrip tion of contrace ptive pills;Re corded Elsewher e: No Locat ion: [facility] S ource: EHR Dependency Director wliey: N Practi ce ID: [id number] [email or web address] lable Time: 01:45:00 PM Dona noe [facility] 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 11:37:49 Screenin g for malignan t neoplasm of cervix Completed 201701/04/2021 Encounte r for screenin g for malignan t neoplasm of cervix;R ecorded Elsewher e: No Locat ion: [facility] S ource: EHR Dependency Director wiley: N Practi ce ID: [id number] Rafiq lable Time: 09:00:00 AM Dona Hancock [facility] 11:37:[address] Concept Completed 201801/04/2021 Encntr for routine child health exam w/o abnormal findings ;Recorde d Elsewher e: No Locat ion: [facility] S ource: EHR Dependency Director wiley: N Practi ce ID: [id number] [email or web address] lable Time: 08:15:00 AM Dona noe [facility] 11:37:47 Pregnanc y 98754542 Completed 202305/27/2024 Kenna noe [facility] 17:05:02 Pregnanc y 54438134 Active 2024 Kenna noe [facility] 5 17:05:02 Past pregnanc y history of gestatio nal hyperten eulogio 735255824 Active 2024 Sumit MCKEON MD [address], [place], [address], [place] [facility] 5 14:00:08 Notes:[facility] referral [facility] 01/12 [facility] Problem Notes None recorded. Procedures Surgical History Date Name Laterality Status Provider Name and Address Organization Details Recorded Time 3 Date of Last Pap Smear completed Anne Gonzalez [facility] 03/24/2024 14:59:37 6 extraction of wisdom tooth completed Dona Hancock [facility] 01/04/2021 11:39:26 Imaging Results None recorded. Procedure Notes None recorded. Medical Equipment None Reported. Allergies Allergen ID Allergen Name Allergen Category Reaction Reaction Severity Criticality Documentation Date Start Date Code Code System Note Provider Name and Address Organization Details Recorded Time 89568 Product containin g penicilli n (product) medicatio n Not available Not available Not available 10/19/2020 27930 8001 SNOMED Comme nt: [facility]; [facility] Available [facility] 0 14:17:57 Medications Name Sig Start Date [...] oral route every day 02/26 completed Prescrib janet Fabian e: No [facility] odify By: [email or web address] Odilon r DateTime : 02/21/20 01:45:00 PM Not Available Not Available Not [...] Not Available Not Available Not Avai lable 24 1 mg-20 mcg (24)/75 mg (4) [...] Antigen Home Test kit REFER TO MANUFACT URER INSTRUCT IONS INCLUDED IN PACKAGIN G 10/16 completed Not Available Not Available Not Available Vitals Date Recorded Body height Body mass index (BMI) Body weight Systolic And Diastolic Provider Name and Address Organization Details Last Updated DateTime 07/18/2025 160.02 cm 28 kg/m2 93176.59 g 137/85 mm[Hg] [facility] 07/18/2025 17:20:48 Date Recorded Body height Body mass index (BMI) Body weight Systolic And Diastolic Provider Name and Address Organization Details Last Updated DateTime 08/09/2025 160.02 cm 28.5 kg/m2 84393.37 g 137/84 mm[Hg] [facility] 08/09/2025 17:03:52 Date Recorded Body height Body mass index (BMI) Body weight Systolic And Diastolic Provider Name and Address Organization Details Last Updated DateTime 09/06/2025 160.02 cm 29.1 kg/m2 40101.15 g 135/79 mm[Hg] [facility] 09/06/2025 16:28:01 Social History Question Answer Notes LastModified by Organizat ion Details LastModified Time Tobacco Smoking Status Never Smoker Dona Hancock [facility] 01/04/2021 11:39:12 If You Are , What Was Your Level Of Alcohol Consumption Prior To ? None [email or web address] Information not available 01/04/2021 Are You Blind Or Do You Have Difficulty Seeing? No [email or web address] Information n ot available 01/04/2021 What Is Your Level Of Caffeine Consumption? Moderate [email or web address] Information not available 01/04/2021 In The 14 Days Before Symptom Onset, Have You Had Close Contact With A Laboratory-confirm ed COVID-19 While That Case Was Ill? No [email or web address] Information n ot available 01/04/2021 In The 14 Days Before Symptom Onset, Have You Had Close Contact With A Person Who Is Under Investigation For COVID-19 While That Person Was Ill? No [email or web address] Information not available 01/04/2021 Have You Been To An Area Known To Be High Risk For COVID-19? No Information not available 01/04/2021 Are You Deaf Or Do You Have Serious Difficulty Hearing? No Information not available 01/04/2021 What Type Of Diet Are You Following? REGULAR [email or web address] Information n ot available 01/04/2021 Have You Ever Been Counseled For Unhealthy Alcohol Use? No [email or web address] Information not available 01/04/2021 Do You Use Your Seat Belt Or Car Seat Routinely? Yes [email or web address] Information not available 01/04/2021 Are You Sexually Active? Yes [email or web address] Information not available 03/24/2024 Do You Have Smoke And Carbon Monoxide Detectors In Your Home? Yes [email or web address] Information not available 01/04/2021 Do You Use Sunscreen Routinely? Yes [email or web address] Information not available 01/04/2021 Has Tobacco Cessation Counseling Been Provided? No [email or web address] Information not available 01/04/2021 Do You Have Difficulty Walking Or Climbing Stairs? No [email or web address] Information not available 03/24/2024 Sex: Unknown Functional Status Question Answer Note LastModified by Organizat ion Details LastModified Time Do you use any illicit or recreational drugs? No [email or web address] Information not available 01/04/2021 Do you or have you ever used any other forms of tobacco or nicotine? No [email or web address] Information not available 01/04/2021 What is your level of alcohol consumption? Occasional [email or web address] Information not available 01/04/2021 Are you able to walk independently without assistance or assistive devices? YESWOREST [email or web address] Information not available 01/04/2021 Are you able to care for yourself independently? Yes [email or web address] Information not available 03/24/2024 Do you have difficulty dressing, bathing, grooming, or toileting? No [email or web address] Information not available 03/24/2024 What is your exercise level? Occasional [email or web address] Information not available 01/04/2021 Mental Status Question Answer Note LastModified by Organization D etails LastModified Time Do you feel stressed (tense, restless, nervous, or anxious, or unable to sleep at night)? [id number] [email or web address] Information not available 01/04/2021 Family History Relationship Description Onset Age of this Age Resolved Age Notes LastModified by Organization Details LastModified Time Maternal Grandmother Diabetes mellitus Not available 01/03 17:50:54 Maternal Aunt Malignant neoplasm of breast 50 [email or web address] Not available 01/04 18:38:25 Maternal Grandfather Malignant neoplasm of colon 82 [email or web address] Not available 01/04 18:38:51 Medical History Condition [...] ICD10 Code Diagnosis IMO Codes Diagnosis Note [id number] Danette Mendoza CNM [place] [address] [address] 01/04/2021 11:25:32 01/06/2021 22:44:08 Gynecologic examination [id number] Z01.419 [id number] MANUEL Winter [place] [address] [address] 07/07/2023 15:28:09 07/07/2023 16:36:15 Gynecologic examination 51659266 Z01.419 Take Calcium with Vitamin D 1200mg daily if not receiving in daily diet. It is strongly advised to have an annual flu shot and up can obtain at most pharmacies . If you have not had a TDap shot in the last 10 years you should obtain one as well. Discussed with patient & provided with informatio n regarding Gardisil vaccine to prevent the 4 strains for HPV that cause cervical cancer if under age 26. Encourage safe sexual practices, to use condoms and limit partners if not already in a monogamous relationsh ip. Do monthly self breast exams. Have mammogram yearly or every other year depending on family history. BRCA testing is now available for patients with strong genetic history of female cancer. If interested contact the office. Engage in daily exercise of low impact aerobic exercise 45-60 minutes 4-5 times weekly. Avoid tobacco and illicit drugs as well as using moderation with alcohol intake less than 1-2 8 oz beverages daily. This lifestyle behavior pattern will lead to less health conditions and longer life span. If BMI greater than 25 weight watchers or dietary consult advised. Patient received above instructio ns, and questions have been answered. If you have any questions please call or respond to this email. Patient was made aware of the patient portal and may obtain a paper copy of today's plan if desired. [facility], taking daily PNVwe discussed timed ICno hx of abnormal papspap updated todaySTI testing declineden couraged annual exam with PCP [id number] Isaias Ding MD [place] [address],[place] [address] 10/16/2023 11:56:48 10/16/2023 12:36:59 [id number] LUAN MCKEON MD [place] [address],[place] [address] 10/16/2023 11:57:40 10/20/2023 08:56:47 test positive [id number] Z32.01 1. Exam today within normal limits.2. Ultrasound today confirms GA and viability. EDC . GC/Clamydi a testing done: will f/u as indicated. 4. ACOG guidelines and plan of care for reviewed with patient. All questions answered.5 . Return to office at 12 weeks for new OB visit6. Will need new OB labs at next visit.7. Genetic screening: desires. [id number] LUAN MCKEON MD [place] [address],[place] [address] 11/18/2023 11:58:02 11/18/2023 13:06:47 screening [id number] Z36.82 Z3A.12 [id number] LUAN MCKEON MD [place] [address],[place] [address] 11/18/2023 11:59:48 11/19/2023 08:50:24 Routine care 739049177 Z34.01 [id number] LUAN MCKEON MD [place] [address],[place] [address] 12/16/2023 11:02:32 12/16/2023 11:38:47 Routine care [id number] Z34.01 [id number] Isaias Ding MD [place] [address],[place] [address] 01/13/2024 14:50:40 01/13/2024 16:14:29 screening for malformation 798002378 Z36.3 Z3A.20 [id number] MD Edward TRAORE [address],[place] [address] 01/13/2024 14:53:13 01/14/2024 08:45:16 Gestation period, 20 weeks 04651132 Z3A.20 Poor growth affecting management 041886820 O36.5999 [id number] MD Edward TRAORE [address],[place] [address] 02/10/2024 16:43:43 02/15/2024 04:09:47 Routine care [id number] Z34.01 [id number] Isaias Ding MD [place] [address],[place] [address] 03/09/2024 14:57:51 03/09/2024 15:45:04 Medical examination for suspected condition 053286554 Z03.74 Z3A.28 [id number] MD Edward TRAORE [address],[place] [address] 03/09/2024 15:21:55 03/10/2024 06:22:24 Breech presentation [id number] O32.1XX9 Gestation period, 28 weeks 46874867 Z3A.28 [id number] Isaias Ding MD [place] [address],[place] [address] 03/24/2024 14:41:03 03/24/2024 15:32:07 Routine care 333490154 Z34.03 [id number] MD Edward Bose [address],[place] [address] 04/06/2024 15:19:24 04/06/2024 16:00:03 Medical examination for suspected condition 057183645 Z03.74 Z3A.32 [id number] MD Edward TRAORE [address],[place] [address] 04/06/2024 15:19:49 04/06/2024 16:48:46 Routine care [id number] Z34.01 [id number] MD Edward Bose [address],[place] [address] 04/21/2024 13:51:16 04/21/2024 14:41:20 Routine care [id number] Z34.03 [id number] Isaias Ding MD [place] [address],[place] [address] 05/04/2024 10:35:09 05/04/2024 11:08:53 Medical examination for suspected condition 374862591 Z03.74 Z3A.36 [id number] LUAN MCKEON MD [place] [address],[place] [address] 05/04/2024 10:35:27 05/04/2024 11:57:11 Routine care 276417063 Z34.01 [id number] LUAN MCKEON MD [place] [address],[place] [address] 05/13/2024 09:33:23 05/16/2024 07:28:17 Elevated blood-pressure reading without diagnosis of hypertension 044846832 R03.0 Gestation period, 37 weeks 46571265 Z3A.37 [id number] LUAN MCKEON MD [place] [address],[place] [address] 05/17/2024 16:41:49 05/19/2024 09:31:47 Routine care 199180663 Z34.01 [id number] LUAN MCKEON MD [place] [address],[place] [address] 05/24/2024 12:17:24 05/24/2024 14:20:43 -induced hypertension 18395208 O13.9 Gestation period, 39 weeks 81230972 Z3A.39 [id number] LUAN MCKEON MD [place] [address],[place] [address] 06/24/2024 12:36:04 06/24/2024 14:46:13 care 284621400 Z39.2 S/p 4 weeks ago here today for a visit.1. Patient recovering well2. Plans to continue combo feeding for now, considerin g weaning pumping, discussed techniques 3. Interested in Slynd for contracept ion at this time. Risks, benefits, and alternativ es reviewed with the patient4. Patient instructed to follow up in 6-12 months for well woman exam unless need arises prior [id number] MANUEL Winter [place] [address],[place] [address] 12/06/2024 09:37:23 12/06/2024 15:09:42 Vulval irritation 133875841 N90.89 we discussed vulvar care guidelines , avoiding irritants/ avoid shaving/wa priscilla until symptoms resolvewar m compress to areadeclin ed STI/vagini tis panelto notify the office if symptoms continue, precaution s discussed Time spent in visit is a total of 18 mins with at least 50% of visit consisting of counseling and review of plan of care. [id number] LUAN MCKEON MD [place] [address],[place] [address] 07/10/2025 15:56:03 07/10/2025 16:25:50 Threatened miscarriage 11344221 O20.0 Z3A.01 [id number] LUAN MCKEON MD [place] [address],[place] [address] 07/18/2025 17:11:39 07/18/2025 17:55:30 test positive 476250692 Z32.01 [id number] 1. Exam today within normal limits.2. Ultrasound today confirms GA and viability. EDC . GC/Clamydi a testing done: will f/u as indicated. 4. ACOG guidelines and plan of care for reviewed with patient. All questions answered.5 . Return to office at 12 weeks for new OB visit6. Will need new OB labs at next visit.7. Genetic screening: desires at 10 weeks. screening 2437 42777 Z36.0 [id number] LUAN MCKEON MD [place] [address],[place] [address] 08/09/2025 16:22:26 08/09/2025 16:58:31 screening 002071302 Z36.82 Z3A.12 [id number] LUAN MCKEON MD [place] [address],[place] [address] 08/09/2025 16:23:30 08/10/2025 14:24:12 state of fetus 64874358 Z34.90 [id number] Past pregn erick history of gestational hypertension 375175170 Z87.59 [id number] LUAN MCKEON MD [place] [address],[place] [address] 09/06/2025 16:12:16 09/06/2025 17:12:04 Past history of gestational hypertension 654209835 Z87.59 [id number] Gestation period, 16 weeks 00282016 Z3A.16 1600304 Health Concerns Section Related Observation LastModified by Organization Detai ls LastModified Time None Recorded Concern Status LastModified by Organization Details LastModified Time None Recorded Advance Directives Directive None Recorded Payers Insurance Date Sequence Insurance Name Policy Number Policy Bailey Covered Member ID Bailey Member ID Guarantor Name 09/03/2025 1 [employer] (POS II) [id number] Beata Martinez [id number] Beata Martinez 11/15/2024 PAYMENT PLAN Beata Martinez 07/07/2023 1 [facility] [facility] [facility] (PPO) Vanessa Martinez [id number] Beata Martinez Notes Date Note Type Note Provider Name and Address Organization Details Recorded Time 07/18/2025 text/html Presents to the office today to confirm . Patient denies any problems up to this point with her . Patient denies cramping or vaginal bleeding. Mild nausea. G1: , complicated by gestational hypertension Discussed bASA ppx starting at 12 weeks. Patient is to [place]. Lives with partner, son, and two cats. 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 Denies tobacco/EtOH/illicits . LUAN MCKEON MD [address], [place], [address], [facility] 07/18/2025 17:53:01 09/06/2025 text/html Generic HPI TemplateReported by Patient LUAN MCKEON MD [address], [place], [address], [facility] 09/06/2025 17:08:36 OBGyn Episode Ob Episode Information Episode Created Date Number of Fetuses Patient Bloodtype Patient rh Status Prepregnancy Weight lbs Domestic Partner Domestic Partner Phone Father Name Academic Computing Director Status 08/09/20 25 1 A Positive [place] OPEN Fetus Data First Name Last Name Admitted to NICU Weight (g) Sex Living Outcome Pediatric Complications Fetus ID Race Codes Race Delivery Type [id number] Problems Problem Notes Problem Name Start Date End Date Resolution Snomed Code Not e Past history of gestational hypertension 08/10/2025 [id number] bAS A ppx Artem Calculation Initial Artem [...] Weight in lbs Pre/Post Dialysis Refused Weight 161.492138036914 BP Diastolic BP Location Tested BP Systolic BP Type 84 L arm 137 sitting Fetus Heart Rate Present A Present Fetus Movement Comments Patient presents to [facility] care. Hx of gestational HTN, [...] Weight in lbs Pre/Post Dialysis Refused Weight 164.298440051789 BP Diastolic BP Location Tested BP Systolic [...] Method Maternal HG B and HCT Levels Ob Episode Information Episode Created Date Number of Fetuses Patient Bloodtype Patient rh Status Prepregnancy Weight lbs Domestic Partner Domestic Partner Phone Father Name Academic Computing Director Status 11/18/19 24 1 A Positive CLOSED Fetus Data First Name Last Name Admitted to NICU Weight (g) Sex Living Outcome Pediatric Complications Fetus ID Race Codes Race Delivery Type 3033.39 65 M true Full Term [id number] Vaginal Delivery Problems Problem Notes Level II US 01/21 230 Problem Name Start Date End Date Resolution Snomed Code Not e Small for gestational age fetus SELFRESOLVED [id number] MFM referral fa xed 01/12 [facility]- scheduled 01-21 230 Level II US only [facility] Artem Calculation Initial Artem Date Initial Exam Date Initial Exam Provider Initial Ultrasound Date Last Menstrual Period Date Ultra Sound Weeks Gestation 05/30/2024 11/18/2023 10/16/2023 08/24/2023 7 Eighteen To Twenty Week Artem Update Ultra Sound Date Fundal Height At Umbil Quickening Date Ultra Sound Latest Weeks Gestation Final Atrem Confirmed By Final Artem Confirmed Date Final Artem Date Ultra Sound Latest Days Gestation 0 [id number] 05/24/2024 05/30/20 24 0 Pre- Flowsheet Flowsheet Date 11/18/2023 Bauer Score Blood Edema Fundus Height Fundus Units Glucose Ketones Leukocytes Nitrite Labor Signs Protein Cervic Dilation Cervic Effacement Cervic Station Type Weight in lbs Pre/Post Dialysis Refused BP Diastolic BP Location Tested BP Systolic BP Type Fetus Heart Rate Present Fetus Movement Comments Flowsheet Date 11/18/2023 Bauer Score Blood Edema Fundus Height Fundus Units Glucose Ketones Leukocytes Nitrite Labor Signs Protein Cervic Dilation Cervic Effacement Cervic Station 12 Type Weight in lbs Pre/Post Dialysis Refused Weight 161.441691831162 BP Diastolic BP Location Tested BP Systolic BP Type 81 131 Fetus Heart Rate Present A 165 Fetus Movement Comments Presents to establish prenat al care. PMH/PSH unremarkable. uncomplicated thus far. Having some congestion, discussed safe meds. Nausea improved. No bleeding or cramping. NIPT LR male, NT/NB wnl. RTC 4 weeks. Flowsheet Date 12/16/2023 Bauer Score Blood Edema Fundus Height Fundus Units Glucose Ketones Leukocytes Nitrite Labor Signs Protein Cervic Dilation Cervic Effacement Cervic Station 16 Type Weight in lbs Pre/Post Dialysis Refused Weight 163.766598782295 BP Diastolic BP Location Tested BP Systolic BP Type 83 L arm 130 sitting Fetus Heart Rate Present A 135 Fetus Movement A No Comments Doing well, nausea improved. No cramping or bleeding. No movement yet. Going to [place] in [place]! RTC 4 weeks for anatomy US. Flowsheet Date 01/13/2024 Bauer Score Blood Edema Fundus Height Fundus Units Glucose Ketones Leukocytes Nitrite Labor Signs Protein Cervic Dilation Cervic Effacement Cervic Station Type Weight in lbs Pre/Post Dialysis Refused BP Diastolic BP Location Tested BP Systolic BP Type Fetus Heart Rate Present Fetus Movement Comments Flowsheet Date 01/13/2024 Bauer Score Blood Edema Fundus Height Fundus Units Glucose Ketones Leukocytes Nitrite Labor Signs Protein Cervic Dilation Cervic Effacement Cervic Station Type Weight in lbs Pre/Post Dialysis Refused Weight 162.832189182433 BP Diastolic BP Location Tested BP Systolic BP Type 80 130 Fetus Heart Rate Present Fetus Movement A Yes Comments Doing well, good movem ent. No crmaping or bleeding. [facility] An[facility] today, all structures normal. EFW 13%, FL 10%. Discussed that this may be a normal variant. Discussed repeat in 4 weeks vs referral to MFM for confirmatory scan. Patient would like reassurance with MFM consult, will send today. RTC 4 weeks Flowsheet Date 02/10/2024 Bauer Score Blood Edema Fundus Height Fundus Units Glucose Ketones Leukocytes Nitrite Labor Signs Protein Cervic Dilation Cervic Effacement Cervic Station Type Weight in lbs Pre/Post Dialysis Refused Weight 170.43671612027 BP Diastolic BP Location Tested BP Systolic BP Type 88 139 Fetus Heart Rate Present A 145 Fetus Movement A Yes Comments Good movement. No cram ping or bleeding. EFW 28% on MFM scan, recommend repeat growth at 28 weeks. Discussed GCT and labs for next visit. RTC 4 weeks. Flowsheet Date 03/09/2024 Bauer Score Blood Edema Fundus Height Fundus Units Glucose Ketones Leukocytes Nitrite Labor Signs Protein Cervic Dilation Cervic Effacement Cervic Station Type Weight in lbs Pre/Post Dialysis Refused BP Diastolic BP Location Tested BP Systolic BP Type Fetus Heart Rate Present Fetus Movement Comments Flowsheet Date 03/09/2024 Bauer Score Blood Edema Fundus Height Fundus Units Glucose Ketones Leukocytes Nitrite Labor Signs Protein Cervic Dilation Cervic Effacement Cervic Station Type Weight in lbs Pre/Post Dialysis Refused Weight 172.988166874871 BP Diastolic BP Location Tested BP Systolic BP Type 86 137 Fetus Heart Rate Present A 140 Fetus Movement A Yes Comments Good movement. No cram ping or bleeding. EFW 18%, JENNIFER wnl. Breech, will repeat US at 32 weeks for presentation and growth. GCT and labs today. Discussed tdap. Had baby shower last weekend! RTC 2 weeks. Flowsheet Date 03/24/2024 Bauer Score Blood Edema Fundus Height Fundus Units Glucose Ketones Leukocytes Nitrite Labor Signs Protein Cervic Dilation Cervic Effacement Cervic Station neg none none trace Type Weight in lbs Pre/Post Dialysis Refused Weight 176.970184539893 BP Diastolic BP Location Tested BP Systolic BP Type 85 L arm 147 sitting Fetus Heart Rate Present A 145 Fetus Movement A Yes Comments 28-year-old 1 at 30 weeks complained of increasing vaginal discharge. Mostly when she is standing all day. Speculum exam. Cervix is long thick and closed. Otherwise no complaints. No problems, routine care has follow-up growth ultrasound. Flowsheet Date 04/06/2024 Bauer Score Blood Edema Fundus Height Fundus Units Glucose Ketones Leukocytes Nitrite Labor Signs Protein Cervic Dilation Cervic Effacement Cervic Station Type Weight in lbs Pre/Post Dialysis Refused BP Diastolic BP Location Tested BP Systolic BP Type Fetus Heart Rate Present Fetus Movement Comments Flowsheet Date 04/06/2024 Bauer Score Blood Edema Fundus Height Fundus Units Glucose Ketones Leukocytes Nitrite Labor Signs Protein Cervic Dilation Cervic Effacement Cervic Station Type Weight in lbs Pre/Post Dialysis Refused Weight 178.458913683793 BP Diastolic BP Location Tested BP Systolic BP Type 85 131 Fetus Heart Rate Present A 131 Fetus Movement A Yes Comments Doing well, good movem ent. Still having some issues of increased vaginal discharge. Needs Tdap vaccine. EFW 19%, vertex! normal fluid. Will repeat once more at 36 weeks. Discussed preadmission appointment. RTC 2 weeks. Flowsheet Date 04/21/2024 Bauer Score Blood Edema Fundus Height Fundus Units Glucose Ketones Leukocytes Nitrite Labor Signs Protein Cervic Dilation Cervic Effacement Cervic Station neg none 34 Type Weight in lbs Pre/Post Dialysis Refused Weight 182.862076314431 BP Diastolic BP Location Tested BP Systolic BP Type 85 L arm 142 sitting Fetus Heart Rate Present A 145 Fetus Movement A Yes Comments patient reports white coat s yndrome today and her previous visit. May wait on gestational hypertension diagnosis. No complaints of headache, blurry vision, epigastric pain good movement, no contractions, no loss of fluid, no vaginal bleeding. Flowsheet Date 05/04/2024 Bauer Score Blood Edema Fundus Height Fundus Units Glucose Ketones Leukocytes Nitrite Labor Signs Protein Cervic Dilation Cervic Effacement Cervic Station Type Weight in lbs Pre/Post Dialysis Refused BP Diastolic BP Location Tested BP Systolic BP Type Fetus Heart Rate Present Fetus Movement Comments Flowsheet Date 05/04/2024 Bauer Score Blood Edema Fundus Height Fundus Units Glucose Ketones Leukocytes Nitrite Labor Signs Protein Cervic Dilation Cervic Effacement Cervic Station Type Weight in lbs Pre/Post Dialysis Refused Weight 184.398792642729 BP Diastolic BP Location Tested BP Systolic BP Type 90 138 Fetus Heart Rate Present A 138 Fetus Movement A Yes Comments Doing well, good movem ent. No ctx, LOF, VB. No headaches, vision changes, chest pain, dyspnea, RUQ pain. Will check BPs at home to ensure no gHTN developing. Will check labs today. EFW 15%, jennifer wnl. Received tdap vaccine. Needs to schedule preadmission. GBS collected today. Declined SVE. RTC 1 week. Desires spontaneous labor. Flowsheet Date 05/13/2024 Bauer Score Blood Edema Fundus Height Fundus Units Glucose Ketones Leukocytes Nitrite Labor Signs Protein Cervic Dilation Cervic Effacement Cervic Station Type Weight in lbs Pre/Post Dialysis Refused Weight 186.555294890682 BP Diastolic BP Location Tested BP Systolic BP Type 90 148 Fetus Heart Rate Present A 140 Fetus Movement A Yes Comments Doing ok, has mild headache this morning. Didn't sleep well last night. No vision changes, chest pain, dyspnea, RUQ pain. BPs at home normal. Discussed given elevated BPs and headache, need to rule out preeclampsia. Discussed risks of preeclampsia including seizures and stroke. Recommend evaluation at hospital for r/o preeclampsia. If workup negative, rtc 1 week. Discussed warning signs. Flowsheet Date 05/17/2024 Bauer Score Blood Edema Fundus Height Fundus Units Glucose Ketones Leukocytes Nitrite Labor Signs Protein Cervic Dilation Cervic Effacement Cervic Station 0cm Type Weight in lbs Pre/Post Dialysis Refused Weight 189.078673132576 BP Diastolic BP Location Tested BP Systolic BP Type 94 171 80 134 Fetus Heart Rate Present A 140 Fetus Movement A Yes Comments Good movement. No cram ping or bleeding. Denies headaches, vision changes, chest pain, dyspnea, RUQ pain. BP at home normal. BP elevated on arrival to office, normal on repeat. Will continue to monitor closely for symptoms or signs of hypertensive disease of . RTC 1 week. Flowsheet Date 05/24/2024 Bauer Score Blood Edema Fundus Height Fundus Units Glucose Ketones Leukocytes Nitrite Labor Signs Protein Cervic Dilation Cervic Effacement Cervic Station neg trace 0cm 50% -2 Type Weight in lbs Pre/Post Dialysis Refused Weight 188.342476490432 BP Diastolic BP Location Tested BP Systolic BP Type 98 R arm 160 sitting Fetus Heart Rate Present A 155 Fetus Movement A Yes Comments Good movement. Rare co ntractions. No bleeding. Denies vision changes, chest pain, dyspnea, RUQ pain. Mild headache and swelling of hands and feet. Discussed concern for gestational hypertension given multiple elevated BPs. Patient also reports BPs elevated at home. Recommend MIL for gestational hypertension today, patient agreeable. Will plan for cytotec induction. Patient to present to L&D. Menstrual History Last Menstrual Date Menses Monthly On Bcp Conception Prior Menses Frequency Hcg Plus Date Menarche Onset Age 1008/24/20[birth year] Genetic Screening And Infection History Question Response Note Mental Retardation/Autism false Patient's Age Will Be 35 Years Or Older At Estim ated Date of Delivery false Thalassemia (Bengali, Chinese, Mediterranean, Or Background): MCV < 80 false Neural Tube Defect (Meningomyelocele, Spina Bifi da, Or Anencephaly) false Congenital Heart Defect false Down Syndrome false Neri-Sachs (eg, Lutheran, Cajun, Palestinian-Walton) f alse Pedro Disease false Sickle Cell Disease Or Trait () false Hemophilia Or Other Blood Disorders false Muscular Dystrophy false Cystic Fibrosis false [place]'s Chorea false Intellectual Disability/Autism false If Yes, Was Person Tested For Fragile X? false Other Inherited Genetic Or Chromosomal Disorder false Maternal Metabolic Disorder (eg, Type 1 Diabetes , PKU) false Patient Or Baby's Father Had A Child With Defects Not Listed Above false Recurrent Loss, Or A Stillbirth false Medications (including Suppl ements, Vitamins, Herbs, OTC Drugs), Illicit/Recreational Drugs, Alcohol false If Yes, Agent(s) And Strength/Dosage false Any Other Genetic History false Live With Someone With TB Or Exposed To TB false Patient Or Partner Has History Of Genital Herpes false Rash Or Viral Illness Since Last Menstrual Perio d false History Of STD, Gonorrhea, Chlamydia, HPV, Syphi lis false Other Infection History false History of HIV false History of Hepatitis false Prior GBS-infected child false Hemoglobinopathy Or Carrier false Other Structural Defect false Recent Travel History Outside of Country false Delivery Information Delivery Date Delivery Type Labor Anesthesia Weeks Gestation Incision Type Labor Labor Length Hrs Delivered By Post Complications Tubal Sterilization Discharge Date Comments 4 Induce d Regional-Ep idural 39.2 false Luan Mckeon MD Small for gestation al age fetus Discharge Information Feeding Method Contraceptive Method Maternal HG B and HCT Levels
--- OUTSIDE RECORDS SUMMARY | 2025-09-14 15:51 | XMS_ITS | Continuity of Care Document ---
Author Organization [facility] [place] Address [address] [place] [address] [place] [address] Care Team Providers Care Physicist Cryogenics Name Role Phone DIONI VERNON Primary Care [...] Not available Not available Not available Lab None recorde d. Referral None recorde d. Procedures None recorde d. Surgeries None recorde d. Imaging US, obstetr ic, 1st trimest er 2024 025 [email or web address], [address], [place], [address], 07/11/2025 14:40:35 Medication Orders None recorde d. Patient TargetsNo targets recorded. Patient InstructionsNo instructions recorded. Reason for Referral None Reported. Results Created Date Observation Date Name Description Value Unit Range Abnormal Flag Note LastModifiedBy Organization Detail LastModifiedTime 08/09/2008/09/2025 US, obste tric, nucha l trans lucen cy No observ ation record ed. [facility] [address], [place], [address], 08/09/2025 17:34:54 08/09/2008/09/2025 US, obste tric, nucha l trans lucen cy No observ ation record ed. [email or web address] [address], [place], [address], 08/11/2025 01:38:49 Result Notes None recorded. Problems Name Problem SNOMED Code Status Onset Date Resolution Date Notes Provider Name and Address Organization Details Recorded Time Small for gestatio nal age fetus 124320944 Completed MFM referral faxed 01/12 SS MFM- schedule d 01-21 230 Level II US only [facility] MFM LUAN MCKEON MD [address], [place], [address], [place] [facility] 4 14:19:39 Uses combined oral contrace ption [id number] Completed 201601/04/2021 Encounte r for initial prescrip tion of contrace ptive pills;Re corded Elsewher e: No Locat ion: [facility] S ource: [employer] Supervisor wiley: N Shelby ce ID: [id number] Rafiq lable Time: 01:45:00 PM Dona noe [facility] 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 1 11:37:49 Screenin g for malignan t neoplasm of cervix Completed 201701/04/2021 Encounte r for screenin g for malignan t neoplasm of cervix;R ecorded Elsewher e: No Locat ion: [facility] S ource: [employer] Supervisor wiley: N Juanpabloti ce ID: 0001 Rafiq lable Time: 09:00:00 AM Dona noe [facility] 1 11:37:[address] Concept Completed 201801/04/2021 Encntr for routine child health exam w/o abnormal findings ;Recorde d Elsewher e: No Locat ion: Nora howell [facility] S ource: [employer] Supervisor wiley: N Practi ce ID: [id number] Rafiq lable Time: 08:15:00 AM Dona noe, [facility] 1 11:37:47 Pregnanc y 74606104 Completed 202305/27/2024 Kenna Sawyer [facility], [facility] 5 17:05:02 Pregnanc y 31840374 Active 2024 Kenna Sawyer [facility], [facility] 5 17:05:02 Past pregnanc y history of gestatio nal hyperten eulogio 341712803 Active 2024 bASA ppx LUAN MCKEON MD [address], [place], [address], [facility] 5 14:00:08 Notes:MFM referral [facility] faxed 01/12 SGA Problem Notes None recorded. Procedures Surgical History Date Name Laterality Status Provider Name and Address Organization Details Recorded Time 3 Date of Last Pap Smear completed Anne Gonzalez [facility] 03/24/2024 14:59:37 6 extraction of wisdom tooth completed Dona Hancock [facility] 01/04/2021 11:39:26 Imaging Results None recorded. Procedure Notes None recorded. Medical Equipment None Reported. Allergies Allergen ID Allergen Name Allergen Category Reaction Reaction Severity Criticality Documentation Date Start Date Code Code System Note Provider Name and Address Organization Details Recorded Time 67033 Product containin g penicilli n (product) medicatio n Not available Not available Not available 10/19/2020 24753 8001 SNOMED Comme nt: Locat ion: Soila menezes [facility]; Not Available [facility] 0 14:17:57 Medications Name Sig Start Date [...] route every day 02/26 completed Prescrib janet Fieldsher e: No Locat ion: Nora howell [facility] odify By: [email or web address] Odilon cee DateTime : 02/21/20 17 01:45:00 PM Not Available Not Available Not Available 20 (28) 1 mg-20 mcg (21)/75 mg (7) [...] Not Available Not Available Not Avai lable Junel Fe 24 1 mg-20 mcg (24)/75 mg [...] Not Available Not Available Not Available Vitals None Recorded Social History Question Answer Notes LastModified by Organizat ion Details LastModified Time Tobacco Smoking Status Never Smoker Dona Hancock [facility], [facility] 01/04/2021 11:39:12 If You Are , What Was Your Level Of Alcohol Consumption Prior To ? None [email or web address] Information not available 01/04/2021 Are You Blind Or Do You Have Difficulty Seeing? No [email or web address] Information n ot available 01/04/2021 What Is Your Level Of Caffeine Consumption? Moderate [email or web address] Information not available 01/04/2021 In The 14 Days Before Symptom Onset, Have You Had Close Contact With A Laboratory-confirm ed COVID-19 While That Case Was Ill? No [email or web address] Information n ot available 01/04/2021 In The 14 Days Before Symptom Onset, Have You Had Close Contact With A Person Who Is Under Investigation For COVID-19 While That Person Was Ill? No [email or web address] Information not available 01/04/2021 Have You Been To An Area Known To Be High Risk For COVID-19? No [email or web address] Information not available 01/04/2021 Are You Deaf Or Do You Have Serious Difficulty Hearing? No [email or web address] Information not available 01/04/2021 What Type Of Diet Are You Following? REGULAR [email or web address] Information n ot available 01/04/2021 Have You Ever Been Counseled For Unhealthy Alcohol Use? No [email or web address] Information not available 01/04/2021 Do You Use Your Seat Belt Or Car Seat Routinely? Yes [email or web address] Information not available 01/04/2021 Are You Sexually Active? Yes Information not available 03/24/2024 Do You Have Smoke And Carbon Monoxide Detectors In Your Home? Yes [email or web address] Information not available 01/04/2021 Do You Use Sunscreen Routinely? Yes [email or web address] Information not available 01/04/2021 Has Tobacco Cessation Counseling Been Provided? No [email or web address] Information not available 01/04/2021 Do You Have Difficulty Walking Or Climbing Stairs? No [email or web address] Information not available 03/24/2024 Sex: Unknown Functional Status Question Answer Note LastModified by Organizat ion Details LastModified Time Do you use any illicit or recreational drugs? No [email or web address] Information not available 01/04/2021 Do you or have you ever used any other forms of tobacco or nicotine? No [email or web address] Information not available 01/04/2021 What is your level of alcohol consumption? Occasional [email or web address] Information not available 01/04/2021 Are you able to walk independently without assistance or assistive devices? YESWOREST [email or web address] Information not available 01/04/2021 Are you able to care for yourself independently? Yes Information not available 03/24/2024 Do you have difficulty dressing, bathing, grooming, or toileting? No [email or web address] Information not available 03/24/2024 What is your exercise level? Occasional Information not available 01/04/2021 Mental Status Question Answer Note LastModified by Organization D etails LastModified Time Do you feel stressed (tense, restless, nervous, or anxious, or unable to sleep at night)? [id number] [email or web address] Information not available 01/04/2021 Family History Relationship Description Onset Age of this Age Resolved Age Notes LastModified by Organization Details LastModified Time Maternal Grandmother Diabetes mellitus [email or web address] Not available 01/03 17:50:54 Maternal Aunt Malignant neoplasm of breast 50 [email or web address] Not available 01/04 18:38:25 Maternal Grandfather Malignant neoplasm of colon 82 [email or web address] Not available 01/04 18:38:51 Medical History Condition [...] ICD10 Code Diagnosis IMO Codes Diagnosis Note [id number] LUAN MCKEON MD [facility] [address] [address] 07/10/2025 15:56:03 07/10/2025 16:25:50 Threatened miscarriage [id number] O20.0 Z3A.01 59532 Health Concerns Section Related Observation LastModified by Organization Detai ls LastModified Time None Recorded Concern Status LastModified by Organization Details LastModified Time None Recorded Payers Encounter Date Sequence Insurance Name Policy Number Policy Bailey Covered Member ID Bailey Member ID Guarantor Name 07/10/2025 1 [employer] (POS II) [id number] Beata Martinez [id number] Beata Martinez OBGyn Episode Ob Episode Information Episode Created Date Number of Fetuses Patient Bloodtype Patient rh Status Prepregnancy Weight lbs Domestic Partner Domestic Partner Phone Father Name Patcher Wood Welder Status 08/09/20 25 1 A Positive Juan Diego OPEN Fetus Data First Name Last Name Admitted to NICU Weight (g) Sex Living Outcome Pediatric Complications Fetus ID Race Codes Race Delivery Type [id number] Problems Problem Notes Problem Name Start Date End Date Resolution Snomed Code Not e Past history of gestational hypertension 08/10/2025 [id number] bAS A ppx Artem Calculation Initial Artem [...] Latest Days Gestation 0 02/21/20 26 0 Pre- Flowsheet Flowsheet Date 08/09/2025 Bauer Score Blood Edema Fundus Height Fundus Units Glucose Ketones Leukocytes Nitrite Labor Signs Protein Cervic Dilation Cervic Effacement Cervic Station Type Weight in lbs Pre/Post Dialysis Refused Weight 161.634226333078 BP Diastolic BP Location Tested BP Systolic BP Type 84 L arm 137 sitting Fetus Heart Rate Present A Present Fetus Movement Comments Patient presents to [facility] care. Hx of gestational HTN, discussed bASA ppx. otherwise uncomplicated. No nausea or cramping. NT/NB wnl today. LR female NIPT! Other OB labs wnl. RTC 4 weeks for routine care. Flowsheet Date 09/06/2025 Bauer Score Blood Edema Fundus Height Fundus Units Glucose Ketones Leukocytes Nitrite Labor Signs Protein Cervic Dilation Cervic Effacement Cervic Station Type Weight in lbs Pre/Post Dialysis Refused Weight 164.043993849485 BP Diastolic BP Location Tested BP Systolic [...]
--- OUTSIDE RECORDS SUMMARY | 2025-09-14 15:51 | XMS_ITS | Clinical Summary ---
Author Organization [facility] Address [address] [place] [address] Care Team Providers Care Program Services Planner Name Role Phone Unavailable Primary Care Provider Unavailabl e Source Comments [facility],non-owned Affiliates and Associated Physician Practices is amultiple site organization consisting of ambulatory clinics and hospital sitesin [place], [place], [place] and [place]. This disclosure is being madepursuant to the Care Everywhere program and may not contain all information available regarding this patient. Last updated 18.[facility] Allergies Active Allergy Reactions Criticality Noted Date Comments Penicillins Urticaria 02/14/2010 Medications * Be aware that medications may not be up to date on this document. Alwaysverify current medications with the patient. adapalene-benzo yl peroxide (EPIDUO) 0.1-2.5 % gel Apply to affected area at bedtime. 45 g 3 4 Active Additional Information Patient not taking.Reported on 02/29/2020 norgestimate-et hinyl estradiol (SPRINTEC 28) 0.25-35 MG-MCG tablet Take 1 Tab by mouth once daily 1 Packet 5 6 Active Additional Information Patient not taking.Reported on 02/29/2020 norgestim-eth estrad triphasic (TRINESSA, 28,) tablet Take 1 Tab by mouth once daily Active norethin-eth estradiol-FE (11/21) 1-20 MG-MCG tablet Take 1 tablet by mouth once daily Active Active Problems Problem Noted Date Diagnosed Date Acne 05/20/2012 Immunizations Immunization Administration Dates Next Due DTaP VACCINE IM (6wk-6yrs) 02/22/2002,,04/12/1997,02/10,1996 HEP A PEDS 2 DOSE 06/16/2008,05/24/2007 HEP B VACCINE, PED/ADOL 07/14/1997,1996, HIB BOOSTER 05/17/1998 INFLUENZA VACCINE 07/03/2017 INFLUENZA VACCINE, QUADR. 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 Gender Identity Not on file Sexual Orientation Not on file Last Filed Vital Signs Vital Sign Reading Time Taken Comments Blood Pressure 118/70 02/29/2020 2:06 PM CDT Pulse 70 02/29/2020 2:06 PM CDT Temperature 36.8 C (98.3 F) 02/29/2020 2:06 PM CDT Respiratory Rate 16 02/29/2020 2:06 PM CDT Oxygen Saturation 97% 02/29/2020 2:06 PM CDT Inhaled Oxygen Concentration - - Weight 65.8 kg (145 lb) 02/29/2020 2:06 PM CDT Height 160 cm (5' 3) 02/29/2020 2:06 PM CDT Body Mass Index 25.69 02/29/2020 2:06 PM CDT Plan of Treatment Health Maintenance Due Date Last Done Comments HEPATITIS C SCREENING 10/07/2014 DTAP/TDAP/TD VACCINES (7 - Td or Tdap) 05/24/2017 05/24/2007, 02/22/2002, 05/17/1998, Additional history exists PAP SMEAR 2017 HPV VACCINE (1 - 3-dose SCDM series) 2023 DEPRESSION SCREENING 11/02/2024 COVID-19 VACCINE ( season) 2025 02/10/2021, 01/11/2021 INFLUENZA VACCINE (#1) 2025 , 07/18/2022, 08/02/2021, Additional history exists ZOSTER VACCINE (1 of 2) 2046 HEPATITIS B VACCINE Completed 07/14/1997, 1996, 1996 HIB VACCINE Completed 05/17/1998 MENINGOCOCCAL GROUPS A/C/Y/W VACCINE Completed 06/12/2015 HIV SCREENING Completed 11/04/2023 MENINGOCOCCAL (Group B) VACCINE SHARED DECISION-MAKING Aged Out No longer eligible based on patient's age to complete this topic PNEUMOCOCCAL VACCINE Aged Out No long er eligible based on patient's age to complete this topic Insurance [employer] * Guarantor: BEATA MARTINEZ Account Type Relation to Patient Date of Phone Billing Address Personal/Family 1995 [place] NASIM[place] MARTINEZ [address] [place] [address]
--- OUTSIDE RECORDS SUMMARY | 2025-09-14 15:51 | XMS_ITS | Continuity of Care Document ---
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 [...] obstetr ic, nuchal translu cency 2024 025 [place] [facility] [address], [place], [address], 08/10/2025 15:56:52 Medication Orders None recorde d. Patient TargetsNo targets recorded. Patient InstructionsNo instructions recorded. Reason for Referral None Reported. Results Created Date Observation Date Name Description Value Unit Range Abnormal Flag Note LastModifiedBy Organization Detail LastModifiedTime 08/09/2008/09/2025 CT/GC AND TRICH OMONA S VAGIN CONSTANCE (RRNA ), URINE chlamydia trachomatis, PCR Negati ve negati ve Not Available [facility] (Lab) [address], [place], [address], 08/11/2025 01:24:58 08/09/2008/09/2025 CT/GC AND TRICH OMONA S VAGIN CONSTANCE (RRNA ), URINE neisseria gonorrhoeae, PCR Negati ve negati ve Not Available [facility] (Lab) [address] [facility], [place], [address], 08/11/2025 01:24:58 08/09/2008/09/2025 CT/GC AND TRICH OMONA S VAGIN CONSTANCE (RRNA ), URINE trichomonas vaginalis ribosomal RNA (rrna) Negati ve negati ve 49_CL _SOUR CETVG : Urine - Bladd er Not Available [facility] (Lab) [address] [facility], [place], [address], 08/11/2025 01:24:58 08/09/2008/09/2025 CULTU RE: URINE result report SEE RESULT S BELOW Test: Cultu re: Urine Speci men Sourc e: Urine - Clean Catch Speci men Type: Urine Speci men Date: 2024 1633 Resul t Date: 08/11 0021 Resul t Statu s: Final resul t Abnor mal: No Resul ting Lab: [facility] [address] [facility] [address] Tel: CULTU RE ----- ----- ----- --- Cultu re resul t (>=3 organ isms prese nt) indic ates possi ble conta minat ion. Repea t cultu re if sympt oms indic ate. Not Available [facility] (Lab) [address] [facility], [place], [address], 08/11/2025 01:25:00 08/09/2008/09/2025 US, obste tric, nucha l trans lucen cy No observ ation record ed. [facility] [address], [place], [address], 08/09/2025 17:34:54 08/09/2008/09/2025 US, obste tric, nucha l trans lucen cy No observ ation record ed. [email or web address] [address], [place], [address], 08/11/2025 01:38:49 Result Notes None recorded. Problems Name Problem SNOMED Code Status Onset Date Resolution Date Notes Provider Name and Address Organization Details Recorded Time Small for gestatio nal age fetus 250236600 Completed MFM referral faxed 01/12 [facility]- schedule d 01-21 230 Level II US only [facility] LUAN MCKEON MD [address], [place], [address], [place] [facility] 4 14:19:39 Uses combined oral contrace ption 041959420 Completed 201601/04/2021 Encounte r for initial prescrip tion of contrace ptive pills;Re corded Elsewher e: No Locat ion: [facility] S ource: EHR Director Life Sales wiley: Larisa Ryan ce ID: [id number] Rafiq lable Time: 01:45:00 PM Dona one [facility] 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 1 11:37:49 Screenin g for malignan t neoplasm of cervix Completed 201701/04/2021 Encounte r for screenin g for malignan t neoplasm of cervix;R ecorded Elsewher e: No Locat ion: [facility] S ource: EHR Director Life [employer] wiley: N Shelby ce ID: [id number] Rafiq lable Time: 09:00:00 AM Dona noe [facility] 1 11:37:[address] Concept Completed 201801/04/2021 Encntr for routine child health exam w/o abnormal findings ;Recorde d Elsewher e: No Locat ion: Delmiscarmen dante [facility] S ource: EHR Director Life Sales wiley: N Shelby ce ID: [id number] [email or web address] lable Time: 08:15:00 AM Dona Hancock [facility], [facility] 1 11:37:47 Pregnanc y 28142328 Completed 202305/27/[address] [facility] 5 17:05:02 Pregnanc y 89771395 [facility] 17:05:02 Past pregnanc y history of gestatio nal hyperten eulogio 701715909 Active 2024 bASA ppx LUAN MCKEON MD [address], [place], [address], [facility] 5 14:00:08 Notes:[facility] referral [facility] 01/12 [facility] Problem Notes None recorded. Procedures Surgical History Date Name Laterality Status Provider Name and Address Organization Details Recorded Time 3 Date of Last Pap Smear completed Anne Gonzalez [facility] 03/24/2024 14:59:37 6 extraction of wisdom tooth completed Dona Hancock [facility] 01/04/2021 11:39:26 Imaging Results None recorded. Procedure Notes None recorded. Medical Equipment None Reported. Allergies Allergen ID Allergen Name Allergen Category Reaction Reaction Severity Criticality Documentation Date Start Date Code Code System Note Provider Name and Address Organization Details Recorded Time 59869 Product containin g penicilli n (product) medicatio n Not available Not available Not available 10/19/2020 02725 7067 SNOMED Comme nt: [facility]at [facility]; Not Available [facility] [...] route every day 02/26 completed Prescrib janet Faiban e: No Locat ion: Nora howell [facility] M odify By: [email or web address] Encounmmia r DateTime : 02/21/20 17 01:45:00 PM Not Available Not Available Not Available Junel FE 1/20 (28) 1 mg-20 mcg (21)/75 mg (7) [...] COVID-19 Antigen Home Test kit REFER TO ROSA BRADLEY IONS INCLUDED IN PACKAGIN G 10/16 completed Not Available Not Available Not Available Vitals Date Recorded Body height Body mass index (BMI) Body weight Systolic And Diastolic Provider Name and Address Organization Details Last Updated DateTime 08/09/2025 160.02 cm 28.5 kg/m2 08993.37 g 137/84 mm[Hg] Kenna Sawyer [facility] 08/09/2025 17:03:52 Social History Question Answer Notes LastModified by Organizat ion Details LastModified Time Tobacco Smoking Status Never Smoker Dona noe, [facility] 01/04/2021 11:39:12 If You Are , What Was Your Level Of Alcohol Consumption Prior To ? None Information not available 01/04/2021 Are You Blind Or Do You Have Difficulty Seeing? No [email or web address] Information n ot available 01/04/2021 What Is Your Level Of Caffeine Consumption? Moderate [email or web address] Information not available 01/04/2021 In The 14 Days Before Symptom Onset, Have You Had Close Contact With A Laboratory-confirm ed COVID-19 While That Case Was Ill? No [email or web address] Information n ot available 01/04/2021 In The 14 Days Before Symptom Onset, Have You Had Close Contact With A Person Who Is Under Investigation For COVID-19 While That Person Was Ill? No [email or web address] Information not available 01/04/2021 Have You Been To An Area Known To Be High Risk For COVID-19? No [email or web address] Information not available 01/04/2021 Are You Deaf Or Do You Have Serious Difficulty Hearing? No [email or web address] Information not available 01/04/2021 What Type Of Diet Are You Following? REGULAR [email or web address] Information n ot available 01/04/2021 Have You Ever Been Counseled For Unhealthy Alcohol Use? No [email or web address] Information not available 01/04/2021 Do You Use Your Seat Belt Or Car Seat Routinely? Yes [email or web address] Information not available 01/04/2021 Are You Sexually Active? Yes Information not available 03/24/2024 Do You Have Smoke And Carbon Monoxide Detectors In Your Home? Yes [email or web address] Information not available 01/04/2021 Do You Use Sunscreen Routinely? Yes [email or web address] Information not available 01/04/2021 Has Tobacco Cessation Counseling Been Provided? No [email or web address] Information not available 01/04/2021 Do You Have Difficulty Walking Or Climbing Stairs? No [email or web address] Information not available 03/24/2024 Sex: Unknown Functional Status Question Answer Note LastModified by Organizat ion Details LastModified Time Do you use any illicit or recreational drugs? No [email or web address] Information not available 01/04/2021 Do you or have you ever used any other forms of tobacco or nicotine? No [email or web address] Information not available 01/04/2021 What is your level of alcohol consumption? Occasional [email or web address] Information not available 01/04/2021 Are you able to walk independently without assistance or assistive devices? YESWOREST [email or web address] Information not available 01/04/2021 Are you able to care for yourself independently? Yes Information not available 03/24/2024 Do you have difficulty dressing, bathing, grooming, or toileting? No [email or web address] Information not available 03/24/2024 What is your exercise level? Occasional [email or web address] Information not available 01/04/2021 Mental Status Question Answer Note LastModified by Organization D etails LastModified Time Do you feel stressed (tense, restless, nervous, or anxious, or unable to sleep at night)? [id number] [email or web address] Information not available 01/04/2021 Family History Relationship Description Onset Age of this Age Resolved Age Notes LastModified by Organization Details LastModified Time Maternal Grandmother Diabetes mellitus [email or web address] Not available 01/03 17:50:54 Maternal Aunt Malignant neoplasm of breast 50 [email or web address] Not available 01/04 18:38:25 Maternal Grandfather Malignant neoplasm of colon 82 [email or web address] Not available 01/04 18:38:51 Medical History Condition Response Allergies (Food, seasonal, environmental ) N Other N Blood Transfusion N Drug/Latex Allergies/Reactions N Breast Cancer N Dermatologic Disorders N Lung Disease N [...] ICD10 Code Diagnosis IMO Codes Diagnosis Note [id number] LUAN MCKEON MD [place] [address] [address] 07/10/2025 15:56:03 07/10/2025 16:25:50 Threatened miscarriage 80019489 O20.0 Z3A.01 22892 [id number] LUAN MCKEON MD [place] [address],[place] [address] 07/18/2025 17:11:39 07/18/2025 17:55:30 test positive 996290762 Z32.01 292350 1. Exam today within normal limits.2. Ultrasound today confirms GA and viability. EDC . GC/Clamydi a testing done: will f/u as indicated. 4. ACOG guidelines and plan of care for reviewed with patient. All questions answered.5 . Return to office at 12 weeks for new OB visit6. Will need new OB labs at next visit.7. Genetic screening: desires at 10 weeks. screening 2437 95285 Z36.0 [id number] MD Edward TRAORE [address],[facility] [place] [address] 08/09/2025 16:22:26 08/09/2025 16:58:31 screening 795587371 Z36.82 Z3A.12 [id number] LUAN MCKEON MD [place] [address],[place] [address] 08/09/2025 16:23:30 08/10/2025 14:24:12 state of fetus 48407342 Z34.90 [id number] Past pregn erick history of gestational hypertension 926328616 Z87.59 [id number] Health Concerns Section Related Observation LastModified by Organization Detai ls LastModified Time None Recorded Concern Status LastModified by Organization Details LastModified Time None Recorded Payers Encounter Date Sequence Insurance Name Policy Number Policy Bailey Covered Member ID Bailey Member ID Guarantor Name 08/09/2025 1 [employer] (POS II) [id number] Beata Martinez [id number] Beata Martinez OBGyn Episode Ob Episode Information Episode Created Date Number of Fetuses Patient Bloodtype Patient rh Status Prepregnancy Weight lbs Domestic Partner Domestic Partner Phone Father Name Lock Up Worker Status 08/09/20 25 1 A Positive Juan Diego OPEN Fetus Data First Name Last Name Admitted to NICU Weight (g) Sex Living Outcome Pediatric Complications Fetus ID Race Codes Race Delivery Type [id number] Problems Problem Notes Problem Name Start Date End Date Resolution Snomed Code Not e Past history of gestational hypertension 08/10/2025 [id number] bAS A ppx Artem Calculation Initial Artem [...] Weight in lbs Pre/Post Dialysis Refused Weight 161.336591430959 BP Diastolic BP Location Tested BP Systolic BP Type 84 L arm 137 sitting Fetus Heart Rate Present A Present Fetus Movement Comments Patient presents to [facility]. Hx of gestational HTN, discussed bASA ppx. otherwise uncomplicated. No nausea or cramping. NT/NB wnl today. LR female NIPT! Other OB labs wnl. RTC 4 weeks for routine care. Flowsheet Date 09/06/2025 Bauer Score Blood Edema Fundus Height Fundus Units Glucose Ketones Leukocytes Nitrite Labor Signs Protein Cervic Dilation Cervic Effacement Cervic Station Type Weight in lbs Pre/Post Dialysis Refused Weight 164.189780886653 BP Diastolic BP Location Tested BP Systolic [...]
--- OUTSIDE RECORDS SUMMARY | 2025-09-14 15:51 | XMS_ITS | Data Portability ---
Author Organization [facility] Address [address] [place] [id number] Assessment No assessment recorded. Plan of Treatment Reminders Order Date Submit Date Provider Last Modified By Organization Details Last Modified Time Details Appointments None recorded. Lab CBC w/ auto diff 2024 025 KIMBERLI [facility] (Centralized Electronic Ordering - All Locations), Patient Can Go To The Location Of Their Choice, 5 08:13:41 CMP, serum or plasma 2024 025 [facility]BERLI [facility] ([facility]ized [facility] Ordering - All Locations), Patient Can Go To The Location Of Their Choice, 5 08:13:42 lipid panel, serum 2024 025 K[facility]BERLI [facility] ([facility] Ordering - All Locations), Patient Can Go To The Location Of Their Choice, 5 08:13:42 TSH, ultra-sensi tive, serum 2024 025 [facility]BERLI [facility] ([facility] Ordering - All Locations), Patient Can Go To The Location Of Their Choice, 5 08:13:44 vitamin D, 25-hydroxy, total, serum 2024 025 K[facility]BERLI [facility] ([facility] Ordering - All Locations), Patient Can Go To The Location Of Their Choice, 5 08:13:43 CBC w/ auto diff 2021 022 K[facility]BERLI [facility] ([facility] Ordering - All Locations), Patient Can Go To The Location Of Their Choice, 07:07:48 CMP, serum or plasma 2021 [facility] ([facility] Ordering - All Locations), Patient Can Go To The Location Of Their Choice, 07:07:50 lipid panel, serum 2021 [facility] ([facility] Ordering - All Locations), Patient Can Go To The Location Of Their Choice, 07:07:51 TSH, ultra-sensi tive, serum 2021 [facility] ([facility] Order[facility] - All Locations), Patient Can Go To The Location Of Their Choice, 07:07:52 Referral counseling referral 2024 025 KIMBERLI Not available 04:08:11 Procedures None recorded. Surgeries None recorded. Imaging None recorded. Medication Orders None recorded. Patient TargetsNo targets recorded. Patient Instructions Encounter Date Encounter Id Patient Instructions Last Modified By Organization Details Last Modified Time 12/13/2021 [id number] she will track down her vaccine records. will fu in 4 wks or sooner if needed. she did to the biometric scale today as a baseline. [email or web address] Not available 12/13/2021 15:34:08 Reason for Referral Counseling Referral for Anxi ety Referring Physician: Madelaine [facility], Family Medicine, Encounter Date: 05/23/2025 Results Created Date Observation Date Name Description Value Unit Range Abnormal Flag Note LastModifiedBy Organization Detail LastModifiedTime 01/22/2001/22/2022 CBC WITH DIFFE RENTI AL/PL ATELE T WBC 5.4 x10e3 /uL 3.4-10 .8 Not Available [facility] ([facility]) [address] [facility] [address], [place], [address], 01/22/2022 07:07:48 01/22/2001/22/2022 CBC WITH DIFFE RENTI AL/PL ATELE T RBC 4.73 x10e6 /uL 3.77-5 .28 Not Available [facility] ([facility]) [address] [facility] [address], [place], [address], 01/22/2022 07:07:48 01/22/20 22 01/22/2022 CBC WITH DIFFE RENTI AL/PL ATELE T hemoglobin 14.0 g/dL 11.1-1 5.9 Not Available [facility] ([facility]) [address] [facility] [address], [place], [address], 01/22/2022 07:07:48 01/22/20 22 01/22/2022 CBC WITH DIFFE RENTI AL/PL ATELE T hematocrit 42.3 % 34.0-4 6.6 Not Available [facility] ([facility]) [address] [facility] [address], [place], [address], 01/22/2022 07:07:48 01/22/20 22 01/22/2022 CBC WITH DIFFE RENTI AL/PL ATELE T MCV 89 fL 79-97 Not Available [facility] ([facility]) [address] [facility] [address], [place], [address], 01/22/2022 07:07:48 01/22/20 22 01/22/2022 CBC WITH DIFFE RENTI AL/PL ATELE T MCH 29.6 pg 26.6-3 3.0 Not Available [facility] ([facility]) [address] [place], [address], 01/22/2022 07:07:48 01/22/20 22 01/22/2022 CBC WITH DIFFE RENTI AL/PL ATELE T MCHC 33.1 g/dL 31.5-3 5.7 Not Available [facility] ([facility]) [address] [place], [address], 01/22/2022 07:07:48 01/22/20 22 01/22/2022 CBC WITH DIFFE RENTI AL/PL ATELE T RDW 12.0 % 11.7-1 5.4 Not Available [facility] ([facility]) [address] [facility] [address], [place], [address], 01/22/2022 07:07:48 01/22/20 22 01/22/2022 CBC WITH DIFFE RENTI AL/PL ATELE T platelets 224 x10e3 /uL 150-45 0 Not Available [facility] ([facility]) [address] [facility] [address], [place], [address], 01/22/2022 07:07:48 01/22/20 22 01/22/2022 CBC WITH DIFFE RENTI AL/PL ATELE T neutrophils 52 % not estab. Not Available [facility] ([facility]) [address] [facility] [address], [place], [address], 01/22/2022 07:07:48 01/22/20 22 01/22/2022 CBC WITH DIFFE RENTI AL/PL ATELE T lymphs 35 % not estab. Not Available [facility] ([facility]) [address] [facility] [address], [place], [address], 01/22/2022 07:07:48 01/22/20 22 01/22/2022 CBC WITH DIFFE RENTI AL/PL ATELE T monocytes 9 % not estab. Not Available [facility] ([facility]) [address] [facility] [address], [place], [address], 01/22/2022 07:07:48 01/22/20 22 01/22/2022 CBC WITH DIFFE RENTI AL/PL ATELE T eos 3 % not estab. Not Available [facility] ([facility]) [address] [facility] [address], [place], [address], 01/22/2022 07:07:48 01/22/20 22 01/22/2022 CBC WITH DIFFE RENTI AL/PL ATELE T basos 1 % not estab. Not Available [facility] ([facility]) [address] [facility] [address], [place], [address], 01/22/2022 07:07:48 01/22/20 22 01/22/2022 CBC WITH DIFFE RENTI AL/PL ATELE T immature cells TELEMETRY NURSE Not Available [facility] ([facility]) [address] [place], [address], 01/22/2022 07:07:48 01/22/20 22 01/22/2022 CBC WITH DIFFE RENTI AL/PL ATELE T neutrophils (absolute) 2.8 x10e3 /uL 1.4-7. 0 Not Available [facility] ([facility]) [address] [place], [address], 01/22/2022 07:07:48 01/22/20 22 01/22/2022 CBC WITH DIFFE RENTI AL/PL ATELE T lymphs (absolute) 1.9 x10e3 /uL 0.7-3. 1 Not Available [facility] ([facility]) [address] [place], [address], 01/22/2022 07:07:48 01/22/20 22 01/22/2022 CBC WITH DIFFE RENTI AL/PL ATELE T monocytes(ab solute) 0.5 x10e3 /uL 0.1-0. 9 Not Available [facility] ([facility]) [address] [place], [address], 01/22/2022 07:07:48 01/22/20 22 01/22/2022 CBC WITH DIFFE RENTI AL/PL ATELE T eos (absolute) 0.2 x10e3 /uL 0.0-0. 4 Not Available [facility] ([facility]) [address] [place], [address], 01/22/2022 07:07:48 01/22/20 22 01/22/2022 CBC WITH DIFFE RENTI AL/PL ATELE T baso (absolute) 0.1 x10e3 /uL 0.0-0. 2 Not Available [facility] ([facility]) [address] [place], [address], 01/22/2022 07:07:48 01/22/20 22 01/22/2022 CBC WITH DIFFE RENTI AL/PL ATELE T immature granulocytes 0 % not estab. Not Available [facility] ([facility]) [address] [facility] [address], [place], [address], 01/22/2022 07:07:48 01/22/20 22 01/22/2022 CBC WITH DIFFE RENTI AL/PL ATELE T immature grans (abs) 0.0 x10e3 /uL 0.0-0. 1 Not Available [facility] ([facility]) [address] [facility] [address], [place], [address], 01/22/2022 07:07:48 01/22/20 22 01/22/2022 CBC WITH DIFFE RENTI AL/PL ATELE T NRBC TELEMETRY NURSE Not Available [facility] ([facility]) [address] [facility] [address], [place], [address], 01/22/2022 07:07:48 01/22/20 22 01/22/2022 CBC WITH DIFFE RENTI AL/PL ATELE T hematology comments: TELEMETRY NURSE Not Available [facility] ([facility]) [address] [facility] [address], [place], [address], 01/22/2022 07:07:48 01/22/20 22 01/22/2022 COMP. METAB OLIC PANEL (14) glucose 80 mg/dL 65-99 Not Available [facility] ([facility]) [address] [facility] [address], [place], [address], 01/22/2022 07:07:49 01/22/20 22 01/22/2022 COMP. METAB OLIC PANEL (14) BUN 15 mg/dL 6-20 Not Available [facility] ([facility]) [address] [facility] [address], [place], [address], 01/22/2022 07:07:49 01/22/20 22 01/22/2022 COMP. METAB OLIC PANEL (14) creatinine 0.94 mg/dL 0.57-1 .00 Not Available [facility] ([facility]) [address] [facility] [place], [address], 01/22/2022 07:07:49 01/22/20 22 01/22/2022 COMP. METAB OLIC PANEL (14) eGFR 86 mL/mi n/1.7 3 >59 Not Available [facility] ([facility]) [address] [facility] [place], [address], 01/22/2022 07:07:49 01/22/20 22 01/22/2022 COMP. METAB OLIC PANEL (14) BUN/creatini ne ratio 16 -23 Not Available [facility] ([facility]) [address] [facility] [address], [place], [address], 01/22/2022 07:07:49 01/22/20 22 01/22/2022 COMP. METAB OLIC PANEL (14) sodium 140 mmol/ L 134-14 4 Not Available [facility] ([facility]) [address] [facility] [place], [address], 01/22/2022 07:07:49 01/22/20 22 01/22/2022 COMP. METAB OLIC PANEL (14) potassium 4.6 mmol/ L 3.5-5. 2 Not Available [facility] ([facility]) [address] [place], [address], 01/22/2022 07:07:49 01/22/20 22 01/22/2022 COMP. METAB OLIC PANEL (14) chloride 104 mmol/ L 96-106 Not Available [facility] ([facility]) [address] [place], [address], 01/22/2022 07:07:49 01/22/20 22 01/22/2022 COMP. METAB OLIC PANEL (14) carbon dioxide, total 20 mmol/ L 20-29 Not Available [facility] ([facility]) [address] [facility] [place], [address], 01/22/2022 07:07:49 01/22/20 22 01/22/2022 COMP. METAB OLIC PANEL (14) calcium 9.6 mg/dL 8.7-10 .2 Not Available [facility] ([facility]) [address] [facility] [place], [address], 01/22/2022 07:07:49 01/22/20 22 01/22/2022 COMP. METAB OLIC PANEL (14) protein, total 6.9 g/dL 6.0-8. 5 Not Available [facility] ([facility]) [address] [facility] [place], [address], 01/22/2022 07:07:49 01/22/20 22 01/22/2022 COMP. METAB OLIC PANEL (14) albumin 4.9 g/dL 3.9-5. 0 Not Available [facility] ([facility]) [address] [facility] [place], [address], 01/22/2022 07:07:49 01/22/20 22 01/22/2022 COMP. METAB OLIC PANEL (14) globulin, total 2.0 g/dL 1.5-4. 5 Not Available [facility] ([facility]) [address] [facility] [place], [address], 01/22/2022 07:07:49 01/22/20 22 01/22/2022 COMP. METAB OLIC PANEL (14) A/G ratio 2.5 1.2-2. 2 above high normal Not Available [facility] ([facility]) [address] [facility] [place], [address], 01/22/2022 07:07:49 01/22/20 22 01/22/2022 COMP. METAB OLIC PANEL (14) bilirubin, total 1.3 mg/dL 0.0-1. 2 above high normal Not Available [facility] ([facility]) [address] [place], [address], 01/22/2022 07:07:49 01/22/20 22 01/22/2022 COMP. METAB OLIC PANEL (14) alkaline phosphatase 64 IU/L 44-121 Not Available [facility] ([facility]) [address] [facility] [place], [address], 01/22/2022 07:07:49 01/22/20 22 01/22/2022 COMP. METAB OLIC PANEL (14) AST (SGOT) 16 IU/L 0-40 Not Available [facility] ([facility]) [address] [facility] [place], [address], 01/22/2022 07:07:49 01/22/20 22 01/22/2022 COMP. METAB OLIC PANEL (14) ALT (SGPT) 12 IU/L 0-32 Not Available [facility] ([facility]) [address] [place], [address], 01/22/2022 07:07:49 01/22/20 22 01/22/2022 LIPID PANEL cholesterol, total 211 mg/dL 100-19 9 above high normal Not Available [facility] ([facility]) [address] [place], [address], 01/22/2022 07:07:50 01/22/20 22 01/22/2022 LIPID PANEL triglyceride s 64 mg/dL 0-149 Not Available [facility] ([facility]) [address] [place], [address], 01/22/2022 07:07:50 01/22/20 22 01/22/2022 LIPID PANEL HDL cholesterol 72 mg/dL >39 Not Available [facility] ([facility]) [address] [place], [address], 01/22/2022 07:07:50 01/22/20 22 01/22/2022 LIPID PANEL VLDL cholesterol eric 11 mg/dL 5-40 Not Available [facility] ([facility]) [address] [facility] [place], [address], 01/22/2022 07:07:50 01/22/20 22 01/22/2022 LIPID PANEL LDL chol calc ([facility]) 128 mg/dL 0-99 above high normal Not Available [facility] ([facility]) [address] [facility] [address], [place], [address], 01/22/2022 07:07:50 01/22/20 22 01/22/2022 LIPID PANEL comment: TELEMETRY NURSE Not Available [facility] ([facility]) [address] [facility] [address], [place], [address], 01/22/2022 07:07:50 01/22/2001/22/2022 TSH TSH 1.690 uIU/m L 0.450- 4.500 Not Available [facility] ([facility]) [address] [facility] [address], [place], [address], 01/22/2022 07:07:51 06/23/2006/24/2023 CBC WITH DIFFE RENTI AL/PL ATELE T WBC 6.0 x10e3 /uL 3.4-10 .8 Not Available [facility] ([facility]) [address] [place], [address], 06/24/2023 10:08:20 06/23/20 23 06/24/2023 CBC WITH DIFFE RENTI AL/PL ATELE T RBC 4.55 x10e6 /uL 3.77-5 .28 Not Available [facility] ([facility]) [address] [place], [address], 06/24/2023 10:08:20 06/23/20 23 06/24/2023 CBC WITH DIFFE RENTI AL/PL ATELE T hemoglobin 13.6 g/dL 11.1-1 5.9 Not Available [facility] ([facility]) [address] [place], [address], 06/24/2023 10:08:20 06/23/20 23 06/24/2023 CBC WITH DIFFE RENTI AL/PL ATELE T hematocrit 44.2 % 34.0-4 6.6 Not Available [facility] ([facility]) [address] [facility], [place], [address], 06/24/2023 10:08:20 06/23/20 23 06/24/2023 CBC WITH DIFFE RENTI AL/PL ATELE T MCV 97 fL 79-97 Not Available [facility] ([facility]) [address] [facility], [place], [address], 06/24/2023 10:08:20 06/23/20 23 06/24/2023 CBC WITH DIFFE RENTI AL/PL ATELE T MCH 29.9 pg 26.6-3 3.0 Not Available [facility] ([facility]) [address] [facility], [place], [address], 06/24/2023 10:08:20 06/23/20 23 06/24/2023 CBC WITH DIFFE RENTI AL/PL ATELE T MCHC 30.8 g/dL 31.5-3 5.7 below low normal Not Available [facility] ([facility]) [address] [place], [address], 06/24/2023 10:08:20 06/23/20 23 06/24/2023 CBC WITH DIFFE RENTI AL/PL ATELE T RDW 11.9 % 11.7-1 5.4 Not Available [facility] ([facility]) [address] [place], [address], 06/24/2023 10:08:20 06/23/20 23 06/24/2023 CBC WITH DIFFE RENTI AL/PL ATELE T platelets 264 x10e3 /uL 150-45 0 Not Available [facility] ([facility]) [address] [place], [address], 06/24/2023 10:08:20 06/23/20 23 06/24/2023 CBC WITH DIFFE RENTI AL/PL ATELE T neutrophils 51 % not estab. Not Available [facility] ([facility]) [address] [facility], [place], [address], 06/24/2023 10:08:20 06/23/20 23 06/24/2023 CBC WITH DIFFE RENTI AL/PL ATELE T lymphs 37 % not estab. Not Available [facility] ([facility]) [address] [facility], [place], [address], 06/24/2023 10:08:20 06/23/20 23 06/24/2023 CBC WITH DIFFE RENTI AL/PL ATELE T monocytes 8 % not estab. Not Available [facility] ([facility]) [address] [facility], [place], [address], 06/24/2023 10:08:20 06/23/20 23 06/24/2023 CBC WITH DIFFE RENTI AL/PL ATELE T eos 3 % not estab. Not Available [facility] ([facility]) [address] [facility], [place], [address], 06/24/2023 10:08:20 06/23/20 23 06/24/2023 CBC WITH DIFFE RENTI AL/PL ATELE T basos 1 % not estab. Not Available [facility] ([facility]) [address] [facility], [place], [address], 06/24/2023 10:08:20 06/23/20 23 06/24/2023 CBC WITH DIFFE RENTI AL/PL ATELE T immature cells TELEMETRY NURSE Not Available [facility] ([facility]) [address] [facility], [place], [address], 06/24/2023 10:08:20 06/23/20 23 06/24/2023 CBC WITH DIFFE RENTI AL/PL ATELE T neutrophils (absolute) 3.1 x10e3 /uL 1.4-7. 0 Not Available [facility] ([facility]) [address] [facility], [place], [address], 06/24/2023 10:08:20 06/23/20 23 06/24/2023 CBC WITH DIFFE RENTI AL/PL ATELE T lymphs (absolute) 2.2 x10e3 /uL 0.7-3. 1 Not Available [facility] ([facility]) [address] [facility], [place], [address], 06/24/2023 10:08:20 06/23/20 23 06/24/2023 CBC WITH DIFFE RENTI AL/PL ATELE T monocytes(ab solute) 0.5 x10e3 /uL 0.1-0. 9 Not Available [facility] ([facility]) [address] [facility], [place], [address], 06/24/2023 10:08:20 06/23/20 23 06/24/2023 CBC WITH DIFFE RENTI AL/PL ATELE T eos (absolute) 0.2 x10e3 /uL 0.0-0. 4 Not Available [facility] ([facility]) [address] [facility], [place], [address], 06/24/2023 10:08:20 06/23/20 23 06/24/2023 CBC WITH DIFFE RENTI AL/PL ATELE T baso (absolute) 0.1 x10e3 /uL 0.0-0. 2 Not Available [facility] ([facility]) [address] [place], [address], 06/24/2023 10:08:20 06/23/20 23 06/24/2023 CBC WITH DIFFE RENTI AL/PL ATELE T immature granulocytes 0 % not estab. Not Available [facility] ([facility]) [address] [place], [address], 06/24/2023 10:08:20 06/23/20 23 06/24/2023 CBC WITH DIFFE RENTI AL/PL ATELE T immature grans (abs) 0.0 x10e3 /uL 0.0-0. 1 Not Available [facility] ([facility]) [address] [facility], [place], [address], 06/24/2023 10:08:20 06/23/20 23 06/24/2023 CBC WITH DIFFE RENTI AL/PL ATELE T NRBC TELEMETRY NURSE Not Available [facility] ([facility]) [address] [facility], [place], [address], 06/24/2023 10:08:20 06/23/20 23 06/24/2023 CBC WITH DIFFE RENTI AL/PL ATELE T hematology comments: TELEMETRY NURSE Not Available [facility] ([facility]) [address] [facility], [place], [address], 06/24/2023 10:08:20 06/23/20 23 06/24/2023 COMP. METAB OLIC PANEL (14) glucose 88 mg/dL 70-99 Not Available [facility] ([facility]) [address] [facility], [place], [address], 06/24/2023 10:08:21 06/23/20 23 06/24/2023 COMP. METAB OLIC PANEL (14) BUN 13 mg/dL 6-20 Not Available [facility] ([facility]) [address] [facility], [place], [address], 06/24/2023 10:08:21 06/23/20 23 06/24/2023 COMP. METAB OLIC PANEL (14) creatinine 0.96 mg/dL 0.57-1 .00 Not Available [facility] ([facility]) [address] [facility], [place], [address], 06/24/2023 10:08:21 06/23/20 23 06/24/2023 COMP. METAB OLIC PANEL (14) eGFR 84 mL/mi n/1.7 3 >59 Not Available [facility] ([facility]) [address] [facility], [place], [address], 06/24/2023 10:08:21 06/23/20 23 06/24/2023 COMP. METAB OLIC PANEL (14) BUN/creatini ne ratio 14 9-23 Not Available [facility] ([facility]) [address] [facility], [place], [address], 06/24/2023 10:08:21 06/23/20 23 06/24/2023 COMP. METAB OLIC PANEL (14) sodium 140 mmol/ L 134-14 4 Not Available [facility] ([facility]) [address] [facility], [place], [address], 06/24/2023 10:08:21 06/23/20 23 06/24/2023 COMP. METAB OLIC PANEL (14) potassium 4.5 mmol/ L 3.5-5. 2 Not Available [facility] ([facility]) [address] [facility], [place], [address], 06/24/2023 10:08:21 06/23/20 23 06/24/2023 COMP. METAB OLIC PANEL (14) chloride 105 mmol/ L 96-106 Not Available [facility] ([facility]) [address] [facility], [place], [address], 06/24/2023 10:08:21 06/23/20 23 06/24/2023 COMP. METAB OLIC PANEL (14) carbon dioxide, total 21 mmol/ L 20-29 Not Available [facility] ([facility]) [address] [facility], [place], [address], 06/24/2023 10:08:21 06/23/20 23 06/24/2023 COMP. METAB OLIC PANEL (14) calcium 9.7 mg/dL 8.7-10 .2 Not Available [facility] ([facility]) [address] [facility] [place], [address], 06/24/2023 10:08:21 06/23/20 23 06/24/2023 COMP. METAB OLIC PANEL (14) protein, total 6.7 g/dL 6.0-8. 5 Not Available [facility] ([facility]) [address], [place], [address], 06/24/2023 10:08:21 06/23/20 23 06/24/2023 COMP. METAB OLIC PANEL (14) albumin 4.8 g/dL 4.0-5. 0 Not Available [facility] ([facility]) [address], [place], [address], 06/24/2023 10:08:21 06/23/20 23 06/24/2023 COMP. METAB OLIC PANEL (14) globulin, total 1.9 g/dL 1.5-4. 5 Not Available [facility] ([facility]) [address], [place], [address], 06/24/2023 10:08:21 06/23/20 23 06/24/2023 COMP. METAB OLIC PANEL (14) A/G ratio 2.5 1.2-2. 2 above high normal Not Available [facility] ([facility]) [address], [place], [address], 06/24/2023 10:08:21 06/23/20 23 06/24/2023 COMP. METAB OLIC PANEL (14) bilirubin, total 1.1 mg/dL 0.0-1. 2 Not Available [facility] ([facility]) [address] [place], [address], 06/24/2023 10:08:21 06/23/20 23 06/24/2023 COMP. METAB OLIC PANEL (14) alkaline phosphatase 59 IU/L 44-121 Not Available [facility] ([facility]) [address], [place], [address], 06/24/2023 10:08:21 06/23/20 23 06/24/2023 COMP. METAB OLIC PANEL (14) AST (SGOT) 14 IU/L 0-40 Not Available [facility] ([facility]) [address] [place], [address], 06/24/2023 10:08:21 06/23/20 23 06/24/2023 COMP. METAB OLIC PANEL (14) ALT (SGPT) 14 IU/L 0-32 Not Available [facility] ([facility]) [address] [place], [address], 06/24/2023 10:08:21 06/23/20 23 06/24/2023 LIPID PANEL cholesterol, total 200 mg/dL 100-19 9 above high normal Not Available [facility] ([facility]) [address] [place], [address], 06/24/2023 10:08:21 06/23/20 23 06/24/2023 LIPID PANEL triglyceride s 111 mg/dL 0-149 Not Available [facility] ([facility]) [address] [place], [address], 06/24/2023 10:08:21 06/23/20 23 06/24/2023 LIPID PANEL HDL cholesterol 66 mg/dL >39 Not Available [facility] ([facility]) [address] [place], [address], 06/24/2023 10:08:21 06/23/20 23 06/24/2023 LIPID PANEL VLDL cholesterol eric 20 mg/dL 5-40 Not Available [facility] ([facility]) [address] [place], [address], 06/24/2023 10:08:21 06/23/20 23 06/24/2023 LIPID PANEL LDL chol calc ([facility]) 114 mg/dL 0-99 above high normal Not Available [facility] ([facility]) [address] [place], [address], 06/24/2023 10:08:21 06/23/20 23 06/24/2023 LIPID PANEL comment: TELEMETRY NURSE Not Available [facility] ([facility]) [address] [place], [address], 06/24/2023 10:08:21 05/23/20 25 05/25/2025 CBC WITH DIFFE RENTI AL/PL ATELE T WBC 6.9 x10e3 /uL 3.4-10 .8 normal Not Available [facility] ([facility]) [address] [facility] [place], [address], 05/25/2025 08:13:38 05/23/2005/25/2025 CBC WITH DIFFE RENTI AL/PL ATELE T RBC 4.86 x10e6 /uL 3.77-5 .28 normal Not Available [facility] ([facility]) [address] [facility], [place], [address], 05/25/2025 08:13:38 05/23/20 25 05/25/2025 CBC WITH DIFFE RENTI AL/PL ATELE T hemoglobin 14.8 g/dL 11.1-1 5.9 normal Not Available [facility] ([facility]) [address] [place], [address], 05/25/2025 08:13:38 05/23/2005/25/2025 CBC WITH DIFFE RENTI AL/PL ATELE T hematocrit 49.0 % 34.0-4 6.6 above high normal Not Available [facility] ([facility]) [address] [place], [id number], 05/25/2025 08:13:38 05/23/20 25 05/25/2025 CBC WITH DIFFE RENTI AL/PL ATELE T MCV 101 fL 79-97 above high normal Not Available [facility] ([facility]) [address] [place], [address], 05/25/2025 08:13:38 05/23/20 25 05/25/2025 CBC WITH DIFFE RENTI AL/PL ATELE T MCH 30.5 pg 26.6-3 3.0 normal Not Available [facility] ([facility]) [address], [place], [address], 05/25/2025 08:13:38 05/23/20 25 05/25/2025 CBC WITH DIFFE RENTI AL/PL ATELE T MCHC 30.2 g/dL 31.5-3 5.7 below low normal Not Available [facility] ([facility]) [address], [place], [address], 05/25/2025 08:13:38 05/23/20 25 05/25/2025 CBC WITH DIFFE RENTI AL/PL ATELE T RDW 12.9 % 11.7-1 5.4 Not Available [facility] ([facility]) [address], [place], [address], 05/25/2025 08:13:38 05/23/20 25 05/25/2025 CBC WITH DIFFE RENTI AL/PL ATELE T platelets 262 x10e3 /uL 150-45 0 normal Not Available [facility] ([facility]) [address], [place], [address], 05/25/2025 08:13:38 05/23/20 25 05/25/2025 CBC WITH DIFFE RENTI AL/PL ATELE T neutrophils 66 % not estab. normal Not Available [facility] ([facility]) [address] [place], [address], 05/25/2025 08:13:38 05/23/20 25 05/25/2025 CBC WITH DIFFE RENTI AL/PL ATELE T lymphs 24 % not estab. normal Not Available [facility] ([facility]) [address] [place], [address], 05/25/2025 08:13:38 05/23/20 25 05/25/2025 CBC WITH DIFFE RENTI AL/PL ATELE T monocytes 7 % not estab. normal Not Available [facility] ([facility]) [address], [place], [address], 05/25/2025 08:13:38 05/23/20 25 05/25/2025 CBC WITH DIFFE RENTI AL/PL ATELE T eos 2 % not estab. normal Not Available [facility] ([facility]) [address], [place], [address], 05/25/2025 08:13:38 05/23/20 25 05/25/2025 CBC WITH DIFFE RENTI AL/PL ATELE T basos 1 % not estab. 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 0 normal Not Available [facility] ([facility]) [address] [place], [address], 05/25/2025 08:13:38 05/23/20 25 05/25/2025 CBC WITH DIFFE RENTI AL/PL ATELE T lymphs (absolute) 1.6 x10e3 /uL 0.7-3. 1 normal Not Available [facility] ([facility]) [address] [place], [address], 05/25/2025 08:13:38 05/23/20 25 05/25/2025 CBC WITH DIFFE RENTI AL/PL ATELE T monocytes(ab solute) 0.5 x10e3 /uL 0.1-0. 9 normal Not Available [facility] ([facility]) [address], [place], [address], 05/25/2025 08:13:38 05/23/20 25 05/25/2025 CBC WITH DIFFE RENTI AL/PL ATELE T eos (absolute) 0.1 x10e3 /uL 0.0-0. 4 normal Not Available [facility] ([facility]) [address], [place], [address], 05/25/2025 08:13:38 05/23/20 25 05/25/2025 CBC WITH DIFFE RENTI AL/PL ATELE T baso (absolute) 0.1 x10e3 /uL 0.0-0. 2 normal Not Available [facility] ([facility]) [address], [place], [address], 05/25/2025 08:13:38 05/23/20 25 05/25/2025 CBC WITH DIFFE RENTI AL/PL ATELE T immature granulocytes 0 % not estab. Not Available [facility] ([facility]) [address], [place], [address], 05/25/2025 08:13:38 05/23/2005/25/2025 CBC WITH DIFFE RENTI AL/PL ATELE T immature grans (abs) 0.0 x10e3 /uL 0.0-0. 1 Not Available [facility] ([facility]) [address] [place], [address], 05/25/2025 08:13:38 05/23/20 25 05/25/2025 CBC WITH DIFFE RENTI AL/PL ATELE T NRBC TELEMETRY NURSE Not Available [facility] ([facility]) [address] [place], [address], 05/25/2025 08:13:38 05/23/20 25 05/25/2025 CBC WITH DIFFE JLTI AL/PL THOMASLE T hematology comments: TELEMETRY NURSE Not Available [facility] ([facility]) [address], [place], [address], 05/25/2025 08:13:38 05/23/20 25 05/25/2025 COMP. METAB OLIC PANEL (14) glucose 81 mg/dL 70-99 normal Not Available [facility] ([facility]) [address], [place], [address], 05/25/2025 08:13:41 05/23/20 25 05/25/2025 COMP. METAB OLIC PANEL (14) BUN 14 mg/dL 6-20 normal Not Available [facility] ([facility]) [address], [place], [address], 05/25/2025 08:13:41 05/23/20 25 05/25/2025 COMP. METAB OLIC PANEL (14) creatinine 0.98 mg/dL 0.57-1 .00 normal Not Available [facility] ([facility]) [address], [place], [address], 05/25/2025 08:13:41 05/23/20 25 05/25/2025 COMP. METAB OLIC PANEL (14) eGFR 81 mL/mi n/1.7 3 >59 normal Not Available [facility] ([facility]) [address], [place], [address], 05/25/2025 08:13:41 05/23/20 25 05/25/2025 COMP. METAB OLIC PANEL (14) BUN/creatini ne ratio 14 9-23 normal Not Available [facility] ([facility]) [address], [place], [address], 05/25/2025 08:13:41 05/23/20 25 05/25/2025 COMP. METAB OLIC PANEL (14) sodium 139 mmol/ L 134-14 4 normal Not Available [facility] ([facility]) [address] [place], [address], 05/25/2025 08:13:41 05/23/20 25 05/25/2025 COMP. METAB OLIC PANEL (14) potassium 4.8 mmol/ L 3.5-5. 2 normal Not Available [facility] ([facility]) [address] [place], [address], 05/25/2025 08:13:41 05/23/20 25 05/25/2025 COMP. METAB OLIC PANEL (14) chloride 104 mmol/ L 96-106 normal Not Available [facility] ([facility]) [address] [place], [address], 05/25/2025 08:13:41 05/23/20 25 05/25/2025 COMP. METAB OLIC PANEL (14) carbon dioxide, total 19 mmol/ L 20-29 below low normal Not Available [facility] ([facility]) [address] [place], [address], 05/25/2025 08:13:41 05/23/20 25 05/25/2025 COMP. METAB OLIC PANEL (14) calcium 9.8 mg/dL 8.7-10 .2 normal Not Available [facility] ([facility]) [address] [place], [address], 05/25/2025 08:13:41 05/23/20 25 05/25/2025 COMP. METAB OLIC PANEL (14) protein, total 7.0 g/dL 6.0-8. 5 normal Not Available [facility] ([facility]) [address] [place], [address], 05/25/2025 08:13:41 05/23/20 25 05/25/2025 COMP. METAB OLIC PANEL (14) albumin 4.8 g/dL 4.0-5. 0 normal Not Available [facility] ([facility]) [address] [place], [address], 05/25/2025 08:13:41 05/23/20 25 05/25/2025 COMP. METAB OLIC PANEL (14) globulin, total 2.2 g/dL 1.5-4. 5 Not Available [facility] ([facility]) [address] [place], [address], 05/25/2025 08:13:41 05/23/20 25 05/25/2025 COMP. METAB OLIC PANEL (14) bilirubin, total 1.8 mg/dL 0.0-1. 2 above high normal Not Available [facility] ([facility]) [address] [place], [address], 05/25/2025 08:13:41 05/23/20 25 05/25/2025 COMP. METAB OLIC PANEL (14) alkaline phosphatase 63 IU/L 44-121 normal Not Available [facility] ([facility]) [address] [place], [address], 05/25/2025 08:13:41 05/23/20 25 05/25/2025 COMP. METAB OLIC PANEL (14) AST (SGOT) 13 IU/L 0-40 normal Not Available [facility] ([facility]) [address] [place], [address], 05/25/2025 08:13:41 05/23/20 25 05/25/2025 COMP. METAB OLIC PANEL (14) ALT (SGPT) 11 IU/L 0-32 normal Not Available [facility] ([facility]) [address] [place], [address], 05/25/2025 08:13:41 05/23/20 25 05/25/2025 LIPID PANEL cholesterol, total 169 mg/dL 100-19 9 normal Not Available [facility] ([facility]) [address] [place], [address], 05/25/2025 08:13:42 05/23/20 25 05/25/2025 LIPID PANEL triglyceride s 82 mg/dL 0-149 normal Not Available [facility] ([facility]) [address], [place], [address], 05/25/2025 08:13:42 05/23/20 25 05/25/2025 LIPID PANEL HDL cholesterol 63 mg/dL >39 normal Not Available [facility] ([facility]) [address], [place], [address], 05/25/2025 08:13:42 05/23/20 25 05/25/2025 LIPID PANEL VLDL cholesterol eric 15 mg/dL 5-40 Not Available [facility] ([facility]) [address] [place], [address], 05/25/2025 08:13:42 05/23/20 25 05/25/2025 LIPID PANEL LDL chol calc ([facility]) 91 mg/dL 0-99 Not Available [facility] ([facility]) [address] [place], [address], 05/25/2025 08:13:42 05/23/20 25 05/25/2025 LIPID PANEL LDL calc comment: TELEMETRY NURSE Not Available [facility] ([facility]) [address] [place], [address], 05/25/2025 08:13:42 05/23/20 25 05/25/2025 VITAM IN D, 25-HY DROXY vitamin D, 25-hydroxy 27.3 NG/mL 30.0-1 00.0 below low normal Vitam in D defic iency has been defin ed by the [employer] of Medic ine and an Endoc rine Socie ty pract ice guide line as a level of serum 25-OH vitam in D less than 20 ng/mL (1,2) . The Endoc rine Socie ty went on to furth er defin e vitam in D insuf ficie ncy as a level betwe en 21 and 29 ng/mL (2). 1. IOM (Inst itute of Medic ine). 2010. Vicki ry refer ence jacquie es for calci um and D. Burt roth [place]: [facility] Press . 2. Holic k MF, Bink[place] ey [place], Bisch off-F errar i SMITH, et al. Evalu ation , treat ment, and preve ntion of vitam in D defic iency : an Endoc rine Socie ty clini eric pract ice guide line. JCEM. 2010; 96(7) :1911 -30. Not Available [facility] ([facility]) [address], [place], [address], 05/25/2025 08:13:43 05/23/20 25 05/25/2025 TSH RFX ON ABNOR MAL TO FREE T4 TSH 2.060 uIU/m L 0.450- 4.500 normal Not Available [facility] ([facility]) [address], [place], [address], 05/25/2025 08:13:44 07/18/20 22 07/17/2022 XR, foot, 3 or more view No observ ation record ed. [address] [address], [place], [address], 07/18/2022 14:28:12 07/18/20 22 07/17/2022 XR, foot, 3 or more view No observ ation record ed. [address], [place], [address], 07/18/2022 14:28:13 Result Notes None recorded. Procedures Surgical History Date Name Laterality Status Provider Name and Address Organization Details Recorded Time extraction of wisdom tooth completed MADELAINE MORRISON MD [address] [place] [address], [phone], [facility] - [facility] 12/13/2021 10:08:15 Imaging Results None recorded. Procedure Notes None recorded. Medical Equipment None Reported. Allergies Allergen ID Allergen Name Allergen Category Reaction Reaction Severity Criticality Documentation Date Start Date Code Code System Note Provider Name and Address Organization Details Recorded Time 241 Product containin g penicilli n (product) medicatio n Not available Not available Not available 12/13/2021 [id number] [facility] MADEL[facility]INE MORRISON MD [address] [place] [address] [place], [address], [facility] - [facility] 2 10:05:18 Medications Name Sig Start Date Stop Date Status Note LastModified by Organization Details LastModified Time fluconazole 150 mg tablet TAKE 1 TABLET BY MOUTH EVERY DAY FOR 1 DAY 05/23 completed Not Available Not Available Not Available benzonatate 200 mg capsule TAKE 1 CAPSULE BY MOUTH THREE TIMES A DAY NEEDED 05/23 completed Not Available Not Available Not Available ondansetron HCl 4 mg tablet TAKE 1 TABLET BY MOUTH TWICE A DAY NEEDED FOR 7 DAYS 05/23 completed Not Available Not Available Not Available tretinoin 0.05 % topical cream APPLY TO AFFECTED AREA EVERY DAY AT BEDTIME active Not Available Not Available No t Available ciprofloxac in 500 mg tablet TAKE 1 TABLET BY MOUTH EVERY 12 HOURS FOR 7 DAYS 05/23 completed Not Available Not Available Not Available cephalexin 500 mg capsule TAKE 1 CAPSULE BY MOUTH EVERY 8 HOURS FOR 7 DAYS 05/23 completed Not Available Not Available Not Available polymyxin B sulfate 10,000 unit-trimet hoprim 1 mg/mL eye drops INSTILL 1 DROP INTO AFFECTED EYE(S) EVERY 6 HOURS FOR 7 DAYS 05/23 completed Not Available Not Available Not Available mupirocin 2 % topical ointment APPLY A SMALL AMOUNT TOPICALLY TO AFFECTED AREA 3 TIMES A DAY 05/23 completed Not Available Not Available Not Available ibuprofen 600 mg tablet TAKE 1 TABLET 3 TIMES A DAY BY ORAL ROUTE NEEDED. active Not Available Not Available No t Available scopolamine 1 mg over 3 days transdermal patch APPLY 1 PATCH EVERY 72 HOURS BY TRANSDERM AL ROUTE FOR 9 DAYS 05/23 completed Not Available Not Available Not Available albuterol sulfate HFA 90 mcg/actuati on aerosol inhaler INHALE 1 PUFF 3 TIMES A DAY BY INHALATIO N ROUTE NEEDED FOR 30 DAYS. 05/23 completed Not Available Not Available Not Available ketoconazol e 2 % topical cream APPLY TO THE AFFECTED AREA(S) BY TOPICAL ROUTE ONCE DAILY X 2 WEEKS 05/23 completed Not Available Not Available Not Available nitrofurant oin monohydrate /macrocryst als 100 mg capsule TAKE 1 CAPSULE BY MOUTH EVERY 12 HOURS FOR 7 DAYS 05/23 completed Not Available Not Available Not Available M-Ramon Plus 27 mg iron-1 mg tablet TAKE 1 TABLET BY MOUTH EVERY DAY 05/23 completed Not Available Not Available Not Available Aurovela 24 Fe 1 mg-20 mcg (24)/75 mg (4) tablet TAKE 1 TABLET BY MOUTH EVERY DAY 12/13 completed Not Available Not Available Not Available Slynd 4 mg (28) tablet TAKE 1 TABLET BY MOUTH EVERY DAY 05/23 completed Not Available Not Available Not Available Flowflex COVID-19 Antigen Home Test kit REFER TO MANUFACTU RER INSTRUCTI ONS INCLUDED IN PACKAGING 05/23 completed Not Available Not Available Not Available Vitals Date Recorded Body height Body temperature Heart rate Oxygen saturation Oxygen saturation in Arterial blood by Pulse oximetry Body mass index (BMI) Body weight Systolic And Diastolic Provider Name and Address Organization Details Last Updated DateTime 2 160.02 cm 97.8 [degF] 83 /min 100 % 100 % 27.4 kg/m2 37344.7 4 g 142/84 mm[Hg] [facility] 2 10:39:58 Date Recorded Oxygen saturation Oxygen saturation in Arterial blood by Pulse oximetry Respiratory rate Heart rate Body temperature Body height Body mass index (BMI) Body weight Systolic And Diastolic Provider Name and Address Organization Details Last Updated DateTime 5 99 % 99 % 16 /min 99 /min 98.7 [degF] 160.02 cm 28 kg/m2 64969.5 9 g 133/89 mm[Hg] [facility] 5 12:05:59 Social History Question Answer Notes LastModified by Organizat ion Details LastModified Time Tobacco Smoking Status Never Smoker MADELAINE MORRISON MD [address] [place] [address], [phone], [facility] 12/13/2021 10:09:43 Do You Have An Advance Directive? Yes Information not available 12/13/2021 How Many Years Have You Consumed Alcohol? 4 Information not available 12/13/2021 Do You Wear A Helmet When Biking? No Information not available 12/13/2021 What Is Your Level Of Caffeine Consumption? Moderate Information not available 12/13/2021 In The 14 Days Before Symptom Onset, Have You Had Close Contact With A Laboratory-confir med COVID-19 While That Case Was Ill? No Information not available 12/13/2021 In The 14 Days Before Symptom Onset, Have You Had Close Contact With A Person Who Is Under Investigation For COVID-19 While That Person Was Ill? No Information not available 12/13/2021 Have You Been To An Area Known To Be High Risk For COVID-19? No Information not available 12/13/2021 What Type Of Diet Are You Following? REGULAR Information not available 12/13/2021 What Is The Highest Grade Or Level Of School You Have Completed Or The Highest Degree You Have Received? [id number] Information not available 12/13/2021 Who Is Your Employer? [employer] Information not available 12/13/2021 How Many Days Of Moderate To Strenuous Exercise, Like A Brisk Walk, Did You Do In The Last 7 Days? 4 Information not available 12/13/2021 How Many Times Per Week Do You Exercise? 3-4 Times Per Week Information not available 12/13/2021 Do You Have A Medical Power Of [employer]um Boats As[employer]? Yes Information not available 12/13/2021 Have You Ever Been Counseled For Unhealthy Alcohol Use? No Information not available 12/13/2021 What Is Your Relationship Status? Information not available 12/13/2021 Do You Use Your Seat Belt Or Car Seat Routinely? Yes Information not available 12/13/2021 Are You Sexually Active? Yes Information not available 12/13/2021 Do You Participate In Social Media? Yes Information not available 12/13/2021 What Types Of Sporting Activities Do You Participate In? Cross Fit Information not available 12/13/2021 Have You Recently Traveled Abroad? No Information not available 12/13/2021 Are You Currently In School? No Information not available 12/13/2021 What Contraceptive Method Was Reported At Start Of This Visit? Combined Oral Contraceptive Pills Information not available 12/13/2021 Do You Have Any Dietary Restrictions? No Information not available 12/13/2021 How Many Days In The Past Year Have You Consumed 4 Or More Drinks? 6 Information no t available 12/13/2021 Sex: Unknown Functional Status Question Answer Note LastModified by Organizat ion Details LastModified Time How many times per week do you consume alcohol? 3-4 times per week Information not available 12/13/2021 Do you use any illicit or recreational drugs? No Information not available 12/13/2021 Do you or have you ever used any other forms of tobacco or nicotine? No Information not available 12/13/2021 What is your level of alcohol consumption? Moderate Information not available 12/13/2021 Are you currently employed? 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 Moderate Information not available 12/13/2021 Mental Status None recorded. Family History Relationship Description Onset Age of this Age Resolved Age Notes LastModified by Organization Details LastModified Time Unspecified Relation Malignant neoplasm of breast matern al cousin Not available 12/13/2021 10:09:16 Maternal Grandfather Diabetes mellitus Not available 2021 10:35:32 Maternal Grandfather Heart disease Not available 2021 10:36:08 Maternal Uncle Hypertensive disorder Not available 2021 10:35:51 Medical History No medical history recorded. Gynecological HistoryNo gynecological history recorded. Obstetrics History GPAL:G 0 P 0 0 0 0 Immunizations Vaccine Type Date Status Note Provider Nam e and Address Organization Details Recorded Time Influenza, split virus, quadrivalent, PF 2 completed MADELAINE MORRISON MD [address] [place], [address], [facility] 07/23/2022 09:45:01 COVID-19, mRNA, LNP-S, PF, 100 mcg/0.5mL dose or 50 mcg/0.25mL dose 1 completed MADELAINE MORRISON MD [address] [place] [address], [phone], [facility] 07/23/2022 09:45:01 COVID-19, mRNA, LNP-S, PF, 100 mcg/0.5mL dose or 50 mcg/0.25mL dose 1 completed MADELAINE MORRISON MD [address] [place] [address], [phone], [facility] 07/23/2022 09:45:01 Influenza, split virus, quadrivalent, preservative 1 completed MADELAINE MORRISON MD [address] [place] [address], [phone], [facility] 07/23/2022 09:45:01 Influenza, MDCK, quadrivalent, PF 3 completed MADELAINE MORRISON MD [address] [place] [address], [phone], [facility] 05/23/2025 12:17:56 Tdap 4 completed MADELAINE MORRISON MD [address] [place] [address], [phone], [facility] 05/23/2025 12:18:18 Past Encounters Encounter ID Performer Location Encounter Start Date Encounter Closed Date Diagnosis/Indication Diagnosis SNOMED-CT Code Diagnosis ICD10 Code Diagnosis IMO Codes Diagnosis Note [id number] MADELAINE MORRISON MD [facility] [address] [place] [address] [place] [id number] 12/13/2021 10:32:42 12/13/2021 11:29:54 Adult health examination 260192324 Z00.00 Will check labs to assess further. Elevated blood-pressure reading without diagnosis of hypertension 042734831 R03.0 She is going to track her home bps and we will fu in 4 wks after her labs are done. She will come back for fasting labs. She is going to work on some healthy lifestyle changes w activity, sleep hygiene, and diet. We will cont w supportive care for stress at this point as she does acknowledg e she has a lot but it is manageable and so will hold on any meds as tools for now. She is aware at any point if she has concerns or questions to call. [id number] MADELAINE MORRISON MD [facility] [address] [facility] [place] [id number] 05/23/2025 12:01:55 05/23/2025 14:08:46 General examination of patient [id number] Z00.00 [id number] - Counseling referral for anxiety management with options for both in-person and telehealth sessions- Recommenda tion for specific counselors who specialize in /anxiety issues- Thyroid function tests to rule out underlying thyroid dysfunctio n potentiall y contributi ng to anxiety symptoms- Comprehens farhad laboratory studies including cholestero l, liver and kidney function, anemia evaluation , and vitamin D levels- vitamins with folic acid as a precaution prasad measure due to not actively preventing - Monitoring of blood pressure which has improved but remains slightly elevated at 133/89 mmHg- Emphasis on healthy lifestyle practices including quality sleep and regular physical activity- Considerat ion of active play exercises that can be done with to incorporat e exercise- Non-pharma cological anxiety management strategies including deep breathing techniques and meditation - Follow-up as needed with option to discuss medication management if non-pharma cological interventi ons prove insufficie nt Cancer cer vix screening status 981135451 Z12.4 [id number] She had a pap 07/07/23 and is seeing her commercial real estate sales manager back. Vitamin D deficiency 347 65055 E55.9 48523 Anxiety 82931243 F41.9 28209 Will cont supportive care. She was interested in a counseling referral. We did discuss medication s as an option ( would consider not taking precaution s for ) but she wants to hold for now. She is aware if there are any worse sxs concerns or wants to discuss things further to call any time. Will check labs. Active or passive immunization [id number] Z23 Health Concerns Section Related Observation LastModified by Organization Detai ls LastModified Time None Recorded Concern Status LastModified by Organization Details LastModified Time None Recorded Advance Directives Directive Y: Payers Insurance Date Sequence Insurance Name Policy Number Policy Bailey Covered Member ID Bailey Member ID Guarantor Name 05/20/2025 1 [employer] (POS II) [id number] Beata Martinez [id number] Beata Martinez 12/13/2021 1 *SELF PAY* Me cynthia Martinez Notes Date Note Type Note Provider Name and Address Organization Details Recorded Time 12/13/2021 text/html ROS as noted in the HPI she is here to establish care for her annual pe. she is also wanting to be seen for an elevated bp. she was seeing her commercial real estate sales manager and her bp was noted to be hi. she changed her ocp. It still has been hi. She has had alot of new exciting good changes. she got , bought a house, and started a new job. 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 It is over 140 and in the 80s. It has been higher over the past two years or so. The ocp change maybe didnt help alot. She is not taking nsaids. She drinks two cups of coffee a day. she wants to work on sleep hygiene. her mind can race. She notes more of an anxiety component not depression. She does have access to a home bp cuff. MADELAINE MORRISON MD [address] [place] [address], [id number] - [facility] 12/13/2021 15:34:13 05/23/2025 text/html Annual WellnessReported by PatientROS as noted in the HPI Presented today for a general checkup and routine preventive care discussion. Reports long-standing anxiety that has significantly worsened since becoming a parent, now primarily manifesting as constant worry and hyperfixation on child's wellbeing. Describes experiencing irrational intrusive thoughts such as fears about falling while holding child on stairs or other unlikely scenarios involving child safety (e.g., child falling into washing machine). These anxiety episodes occur frequently throughout the day with varying intensity. Anxiety is particularly triggered by situations perceived as uncontrollable, with symptoms becoming more pronounced during transitions and novel environments.Describes anxiety as paralyzing in the moment and constantly in the back of my mind, affecting concentration at work though not yet impacting job performance. Reports difficulty relaxing in social settings when anxious, such as during a recent family gathering. Denies persistent depressive symptoms but acknowledges feeling overwhelmed and down in general during intense anxiety episodes. Sleep is generally adequate though occasionally disrupted by anxiety-related dreams.Reports historical coping mechanisms for anxiety (previously focused on controllable aspects of school/work) are less effective with parenting anxieties. Has attempted cognitive techniques including blue dot theory (focusing on controllable factors) with limited success. Has employed deep breathing exercises with variable effectiveness. Previously attempted to locate -specific counseling without success. Expresses preference for non-pharmacological interventions initially, but acknowledges willingness to consider medication if symptoms persist or worsen.-rela mamadou concerns include hair loss, which is now improving with visible new growth. Menstrual cycles have resumed with regular 28-day pattern. Last Pap smear documented on 07/07/2023. Not currently using contraception but not actively trying to conceive. Current medications include Retin-A cream and occasional Motrin. Takes a daily multivitamin. No new drug allergies beyond previously documented penicillin sensitivity. Family history reviewed with no new cases of cancer noted. Reports being current with preventive care including dental exams, with routine eye examination scheduled for Fall 2024. MADELAINE MORRISON MD [address] [place] [address] [place], [address], [facility] [place] - [facility] 05/23/2025 18:30:33 OBGyn Episode No OBEpisode recorded.
--- OUTSIDE RECORDS SUMMARY | 2025-09-14 15:51 | XMS_ITS | Continuity of Care Document ---
Author Organization 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 Plan of Treatment [...] PCR Negati ve negati ve Not Available [facility] (Lab) [address], [place], [address], 08/11/2025 01:24:58 08/09/2008/09/2025 CT/GC AND TRICH OMONA S VAGIN CONSTANCE (RRNA ), URINE neisseria gonorrhoeae, PCR Negati ve negati ve Not Available [facility] (Lab) [address] [place], [address], 08/11/2025 01:24:58 08/09/2008/09/2025 CT/GC AND TRICH OMONA S VAGIN CONSTANCE (RRNA ), URINE trichomonas vaginalis ribosomal RNA (rrna) Negati ve negati ve 49_CL _SOUR CETVG : Urine - Bladd er Not Available [facility] (Lab) [address] [facility] [address], [place], [address], 08/11/2025 01:24:58 08/09/2008/09/2025 CULTU RE: URINE result report SEE RESULT S BELOW Test: Cultu re: Urine Speci men Sourc e: Urine - Clean Catch Speci men Type: Urine Speci men Date: 2024 1633 Resul t Date: 08/11 0021 Resul t Statu s: Final resul t Abnor mal: No Resul ting Lab: [facility] [address] [facility] [address] Tel: CULTU RE ----- ----- ----- --- Cultu re resul t (>=3 organ isms prese nt) indic ates possi ble conta minat ion. Repea t cultu re if sympt oms indic ate. Not Available [facility] (Lab) [address], [place], [address], 08/11/2025 01:25:00 08/09/2008/09/2025 US, obste tric, nucha l trans lucen cy No observ ation record ed. [facility] [address], [place], [address], 08/09/2025 17:34:54 08/09/2008/09/2025 US, obste tric, nucha l trans lucen cy No observ ation record ed. [facility] [address], [place], [address], 08/11/2025 01:38:49 Result Notes None recorded. Problems Name Problem SNOMED Code Status Onset Date Resolution Date Notes Provider Name and Address Organization Details Recorded Time Small for gestatio nal age fetus 794606738 Completed MFM referral faxed 01/12 [facility]- schedule d 01-21 230 Level II US only [facility] LUAN MCKEON MD [address], [place], [address], [place] [facility] 4 14:19:39 Uses combined oral contrace ption 861812738 Completed 201601/04/2021 Encounte r for initial prescrip tion of contrace ptive pills;Re corded Elsewher e: No [facility]: EHR Waist Pleater wiley: N Practi ce ID: [id number] Rafiq lable Time: 01:45:00 PM Dona Hancock [facility] 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 S ource: EHR Waist Pleater wiley: N Practi ce ID: [id number] Rafiq lable Time: 09:00:00 AM Dona Hancock [facility] 1 11:37:49 Screenin g for malignan t neoplasm of cervix Completed 201701/04/2021 Encounte r for screenin g for malignan t neoplasm of cervix;R ecorded Elsewher e: No [facility] S ource: EHR Waist Pleater wiley: N Practi ce ID: [id number] Rafiq lable Time: 09:00:00 AM Dona Hancock [facility] [address] 11:37:[address] Concept Completed 201801/04/2021 Encntr for routine child health exam w/o abnormal findings ;Recorde d Elsewher e: No [facility] S ource: EHR Waist Pleater wiley: N Shelby ce ID: [id number] Rafiq lable Time: 08:15:00 AM Dona Hancock [facility] 1 11:37:47 Pregnanc y 92623636 Completed 202305/27/2024 Kenna Salazarbebe [facility] 5 17:05:02 Pregnanc y 00031680 Active 2024 Kenna Sawyer [facility], [facility] 5 17:05:02 Past pregnanc y history of gestatio nal hyperten eulogio 299686827 Active 2024 Sumit MCKEON MD [address], [place], [address], [facility] 5 14:00:08 Notes:[facility] referral [facility] 01/12 [facility] Problem Notes None recorded. Procedures Surgical History Date Name Laterality Status Provider Name and Address Organization Details Recorded Time 3 Date of Last Pap Smear completed Anne Gonzalez [facility] 03/24/2024 14:59:37 6 extraction of wisdom tooth completed Dona Hancock [facility] 01/04/2021 11:39:26 Imaging Results None recorded. Procedure Notes None recorded. Medical Equipment None Reported. Allergies Allergen ID Allergen Name Allergen Category Reaction Reaction Severity Criticality Documentation Date Start Date Code Code System Note Provider Name and Address Organization Details Recorded Time 81080 Product containin g penicilli n (product) medicatio n Not available Not available Not available 10/19/2020 13412 8001 SNOMED Comme nt: [facility]; Not Available [facility] 0 14:17:57 Medications Name Sig Start Date [...] route every day 02/26 completed Prescrib ed Elsewher e: No Locat ion: [facility] odify By: [email or web address] Encounte r DateTime : 02/21/20 17 01:45:00 PM Not Available Not Available Not Available 11/21 (28) 1 mg-20 mcg (21)/75 mg [...] Updated DateTime 09/06/2025 160.02 cm 29.1 kg/m2 09607.15 g 135/79 mm[Hg] Kenna Sawyer [facility] 09/06/2025 16:28:01 Social History Question Answer Notes LastModified by Organizat ion Details LastModified Time Tobacco Smoking Status Never Smoker Dona noe, [facility] 01/04/2021 11:39:12 If You Are , What Was Your Level Of Alcohol Consumption Prior To ? None [email or web address] Information not available 01/04/2021 Are You Blind Or Do You Have Difficulty Seeing? No [email or web address] Information n ot available 01/04/2021 What Is Your Level Of Caffeine Consumption? Moderate [email or web address] Information not available 01/04/2021 In The 14 Days Before Symptom Onset, Have You Had Close Contact With A Laboratory-confirm ed COVID-19 While That Case Was Ill? No [email or web address] Information n ot available 01/04/2021 In The 14 Days Before Symptom Onset, Have You Had Close Contact With A Person Who Is Under Investigation For COVID-19 While That Person Was Ill? No [email or web address] Information not available 01/04/2021 Have You Been To An Area Known To Be High Risk For COVID-19? No [email or web address] Information not available 01/04/2021 Are You Deaf Or Do You Have Serious Difficulty Hearing? No [email or web address] Information not available 01/04/2021 What Type Of Diet Are You Following? REGULAR [email or web address] Information n ot available 01/04/2021 Have You Ever Been Counseled For Unhealthy Alcohol Use? No [email or web address] Information not available 01/04/2021 Do You Use Your Seat Belt Or Car Seat Routinely? Yes [email or web address] Information not available 01/04/2021 Are You Sexually Active? Yes [email or web address] Information not available 03/24/2024 Do You Have Smoke And Carbon Monoxide Detectors In Your Home? Yes [email or web address] Information not available 01/04/2021 Do You Use Sunscreen Routinely? Yes Information not available 01/04/2021 Has Tobacco Cessation Counseling Been Provided? No [email or web address] Information not available 01/04/2021 Do You Have Difficulty Walking Or Climbing Stairs? No Information not available 03/24/2024 Sex: Unknown Functional Status Question Answer Note LastModified by Organizat ion Details LastModified Time Do you use any illicit or recreational drugs? No [email or web address] Information not available 01/04/2021 Do you or have you ever used any other forms of tobacco or nicotine? No [email or web address] Information not available 01/04/2021 What is your level of alcohol consumption? Occasional [email or web address] Information not available 01/04/2021 Are you able to walk independently without assistance or assistive devices? YESWOREST [email or web address] Information not available 01/04/2021 Are you able to care for yourself independently? Yes [email or web address] Information not available 03/24/2024 Do you have difficulty dressing, bathing, grooming, or toileting? No Information not available 03/24/2024 What is your exercise level? Occasional [email or web address] Information not available 01/04/2021 Mental Status Question Answer Note LastModified by Organization D etails LastModified Time Do you feel stressed (tense, restless, nervous, or anxious, or unable to sleep at night)? [id number] [email or web address] Information not available 01/04/2021 Family History Relationship Description Onset Age of this Age Resolved Age Notes LastModified by Organization Details LastModified Time Maternal Grandmother Diabetes mellitus [email or web address] Not available 01/03 17:50:54 Maternal Aunt Malignant neoplasm of breast 50 [email or web address] Not available 01/04 18:38:25 Maternal Grandfather Malignant neoplasm of colon 82 [email or web address] Not available 01/04 18:38:51 Medical History Condition Response Allergies (Food, seasonal, environmental ) N Other N Breast Cancer N Drug/Latex Allergies/Reactions N Blood Transfusion N Lung Disease N Dermatologic Disorders N Defects or Inherited Disease N Breast [...] ICD10 Code Diagnosis IMO Codes Diagnosis Note [id number] LUAN MCKEON MD [place] [address] [address] 08/09/2025 16:22:26 08/09/2025 16:58:31 screening 500194397 Z36.82 Z3A.12 480050 [id number] LUAN MCKEON MD [place] [address],[place] [address] 08/09/2025 16:23:30 08/10/2025 14:24:12 state of fetus 07039885 Z34.90 [id number] Past pregn erick history of gestational hypertension 818055478 Z87.59 20052743 [id number] LUAN MCKEON MD [place] [address],[place] [address] 09/06/2025 16:12:16 09/06/2025 17:12:04 Past history of gestational hypertension 395093210 Z87.59 [id number] Gestation period, 16 weeks 66776739 Z3A.16 [id number] Health Concerns Section Related Observation LastModified by Organization Detai ls LastModified Time None Recorded Concern Status LastModified by Organization Details LastModified Time None Recorded Payers Encounter Date Sequence Insurance Name Policy Number Policy Bailey Covered Member ID Bailey Member ID Guarantor Name 09/06/2025 1 [employer] (POS II) [id number] Beata Martinez [id number] Beata Martinez Notes Date Note Type Note Provider Name and Address Organization Details Recorded Time 09/06/2025 text/html Generic HPI TemplateReported by Patient LUAN MCKEON MD [address], [place], [address], [facility] 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 08/09/20 25 1 A Positive Juan Diego OPEN Fetus Data First Name Last Name Admitted to NICU Weight (g) Sex Living Outcome Pediatric Complications Fetus ID Race Codes Race Delivery Type [id number] Problems Problem Notes Problem Name Start Date End Date Resolution Snomed Code Not e Past history of gestational hypertension 08/10/2025 [id number] bAS A ppx Artem Calculation Initial Artem [...] Weight in lbs Pre/Post Dialysis Refused Weight 161.345072002075 BP Diastolic BP Location Tested BP Systolic BP Type 84 L arm 137 sitting Fetus Heart Rate Present A Present Fetus Movement Comments Patient presents to health system care. Hx of gestational HTN, discussed bASA ppx. otherwise uncomplicated. No nausea or cramping. NT/NB wnl today. LR female NIPT! Other OB labs wnl. RTC 4 weeks for routine care. Flowsheet Date 09/06/2025 Bauer Score Blood Edema Fundus Height Fundus Units Glucose Ketones Leukocytes Nitrite Labor Signs Protein Cervic Dilation Cervic Effacement Cervic Station Type Weight in lbs Pre/Post Dialysis Refused Weight 164.668458800216 BP Diastolic BP Location Tested BP Systolic [...]
--- OUTSIDE RECORDS SUMMARY | 2025-09-14 15:51 | XMS_ITS | Continuity of Care Document ---
Author Organization [facility] Address [address] [place] [address] Care Team Providers Care Lcac Operator Name Role Phone DIONI VERNON Primary Care Provider [phone] Assessment No assessment recorded. Plan of Treatment [...] Not available Not available Not available Lab aneuplo idy risk, chromos ome specifi c circula ting cell free (ccf) DNA, materna l serum 2024 025 [facility], [address], [place], [address], 07/31/2025 21:14:58 HbA1c (hemogl obin A1c), blood 2024 025 [facility] (Lab), [address], [place], [address], 07/27/2025 14:58:52 type + screen, blood 2024 025 [facility] (Lab), [address], [place], [address], 07/27/2025 14:58:51 rubella igg Ab, titer, serum 2024 025 [facility] (Lab), [address], [place], [address], 07/27/2025 14:58:52 CBC w/ auto diff 2024 025 [facility] (Lab), [address], [place], [address], 07/27/2025 14:58:49 hepatit is C virus Ab, serum 2024 025 [facility] (Lab), [address], [place], [address], 07/27/2025 14:58:51 HBsAg (hepati tis B surface Ag), serum 2024 025 [facility] (Lab), [address], [place], [address], 07/27/2025 14:58:50 RPR (rapid plasma reagin) , serum 2024 025 [facility] (Lab), [address], [place], [address], 07/27/2025 14:58:53 HIV 1+2 AB + HIV 1 p24 Ag, qualita tive immunoa ssay, serum 2024 025 [facility] (Lab), [address], [place], [address], 07/27/2025 14:58:50 Referral None recorde d. Procedures None recorde d. Surgeries None recorde d. Imaging None recorde d. Medication Orders None recorde d. Patient TargetsNo targets recorded. Patient InstructionsNo instructions recorded. Reason for Referral None Reported. Results Created Date Observation Date Name Description Value Unit Range Abnormal Flag Note LastModifiedBy Organization Detail LastModifiedTime 07/31/20 25 07/31/2025 [UNIT Y] ANEUP LOIDY NIPT fraction 6.3% normal Not Available Aleksandra calhoun [address], [place], [address], 07/31/2025 21:14:58 07/31/20 25 07/31/2025 [UNIT Y] ANEUP LOIDY NIPT 22Q11.2 microdeletio n LOW RISK <1 in 10,000 normal Not Available [facility] [address], [place], [address], 07/31/2025 21:14:58 07/31/20 25 07/31/2025 [UNIT Y] ANEUP LOIDY NIPT sex chromosome aneuploidy NOT DETECT ED normal Not Available [facility] [address], [place], [address], 07/31/2025 21:14:58 07/31/20 25 07/31/2025 [UNIT Y] ANEUP LOIDY NIPT monosomy X LOW RISK <1 in 10,000 normal Not Available [facility] [address], [place], [address], 07/31/2025 21:14:58 07/31/20 25 07/31/2025 [UNIT Y] ANEUP LOIDY NIPT trisomy 13 LOW RISK <1 in 10,000 normal Not Available [facility] [address], [place], [address], 07/31/2025 21:14:58 07/31/20 25 07/31/2025 [UNIT Y] ANEUP LOIDY NIPT trisomy 18 LOW RISK <1 in 10,000 normal Not Available [facility] [address], [place], [address], 07/31/2025 21:14:58 07/31/20 25 07/31/2025 [UNIT Y] ANEUP LOIDY NIPT trisomy 21 LOW RISK <1 in 10,000 normal Not Available [facility] [address], [place], [address], 07/31/2025 21:14:58 07/31/20 25 07/31/2025 [UNIT Y] ANEUP LOIDY NIPT sex FEMALE normal Not Available [facility] [address], [place], [address], 07/31/2025 21:14:58 07/31/20 25 07/31/2025 [UNIT Y] ANEUP LOIDY NIPT gestation SINGLE TON normal Not Available [facility] [address], [place], [address], 07/31/2025 21:14:58 07/31/20 25 07/31/2025 [UNIT Y] ANEUP LOIDY NIPT for detailed report, see pdf See PDF normal Not Available [facility] [address], [place], [address], 07/31/2025 21:14:58 07/26/2007/26/2025 CBC W/DIF F WBC 9.4 10'3/ uL 3.5-10 .5 Not Available [facility] (Lab) [address], [place], [address], 07/27/2025 14:58:49 07/26/2007/26/2025 CBC W/DIF F RBC 4.60 10'6/ uL (based on docume nted legal sex) 3.80-5 .20 Not Available [facility] (Lab) [address], [place], [address], 07/27/2025 14:58:49 07/26/2007/26/2025 CBC W/DIF F HGB 13.7 g/dL (based on docume nted legal sex) 11.6-1 5.4 Not Available [facility] (Lab) [address], [place], [address], 07/27/2025 14:58:49 07/26/2007/26/2025 CBC W/DIF F HCT 42.3 % (based on docume nted legal sex) 34.0-4 5.0 Not Available [facility] (Lab) [address], [place], [address], 07/27/2025 14:58:49 07/26/20 25 07/26/2025 CBC W/DIF F MCV 92.0 fL 80.0-9 9.0 Not Available [facility] (Lab) [address], [place], [address], 07/27/2025 14:58:49 07/26/20 25 07/26/2025 CBC W/DIF F MCH 29.8 pg 27.0-3 4.0 Not Available [facility] (Lab) [address], [place], [address], 07/27/2025 14:58:49 07/26/20 25 07/26/2025 CBC W/DIF F MCHC 32.4 g/dL 32.0-3 5.5 Not Available [facility] (Lab) [address], [place], [address], 07/27/2025 14:58:49 07/26/2007/26/2025 CBC W/DIF F RDW 12.4 % 11.0-1 5.0 Not Available [facility] (Lab) [address], [place], [address], 07/27/2025 14:58:49 07/26/2007/26/2025 CBC W/DIF F plt 219 10'3/ uL 150-40 0 Not Available [facility] (Lab) [address], [place], [address], 07/27/2025 14:58:49 07/26/2007/26/2025 CBC W/DIF F MPV 11.9 fL 8.8-12 .1 Not Available [facility] (Lab) [address], [place], [address], 07/27/2025 14:58:49 07/26/2007/26/2025 CBC W/DIF F NRBC's 0.0 % 0.0 Not Available [facility] (Lab) [address], [place], [address], 07/27/2025 14:58:49 07/26/20 25 07/26/2025 CBC W/DIF F absolute NRBCs 0.0 10'3/ uL no refere nce range establ ished Not Available [facility] (Lab) [address], [place], [address], 07/27/2025 14:58:49 07/26/20 25 07/26/2025 CBC W/DIF F neutrophils 75.8 % 34.0-7 3.0 high Not Available [facility] (Lab) [address], [place], [address], 07/27/2025 14:58:49 07/26/20 25 07/26/2025 CBC W/DIF F lymphocytes 16.6 % 15.0-5 0.0 Not Available [facility] (Lab) [address], [place], [address], 07/27/2025 14:58:49 07/26/20 25 07/26/2025 CBC W/DIF F monocytes 5.6 % 1.0-15 .0 Not Available [facility] (Lab) [address] [place], [address], 07/27/2025 14:58:49 07/26/20 25 07/26/2025 CBC W/DIF F eosinophils 1.2 % 0.0-8. 0 Not Available [facility] (Lab) [address] [place], [address], 07/27/2025 14:58:49 07/26/20 25 07/26/2025 CBC W/DIF F basophils 0.5 % 0.0-2. 0 Not Available [facility] (Lab) [address] [place], [address], 07/27/2025 14:58:49 07/26/2007/26/2025 CBC W/DIF F immature granulocytes 0.3 % no define d refere nce range Immat ure Granu locyt es (IG) repre sents autom ated enume ratio n of Metam yeloc ytes, Myelo cytes and Promy elocy yanni when IG is < 5%. Blast s are not inclu ded in IG and repor mamadou separ ately if prese nt. Not Available [facility] (Lab) [address], [place], [address], 07/27/2025 14:58:49 07/26/2007/26/2025 CBC W/DIF F absolute neutrophils 7.1 10'3/ uL 1.5-8. 0 Not Available [facility] (Lab) [address], [place], [address], 07/27/2025 14:58:49 07/26/2007/26/2025 CBC W/DIF F absolute lymphocytes 1.6 10'3/ uL 1.0-4. 0 Not Available [facility] (Lab) [address], [place], [address], 07/27/2025 14:58:49 07/26/20 25 07/26/2025 CBC W/DIF F absolute monocytes 0.5 10'3/ uL 0.2-1. 0 Not Available [facility] (Lab) [address], [place], [address], 07/27/2025 14:58:49 07/26/2007/26/2025 CBC W/DIF F absolute eosinophils 0.1 10'3/ uL 0.0-0. 6 Not Available [facility] (Lab) [address] [place], [address], 07/27/2025 14:58:49 07/26/20 25 07/26/2025 CBC W/DIF F absolute basophils 0.1 10'3/ uL 0.0-0. 3 Not Available [facility] (Lab) [address], [place], [address], 07/27/2025 14:58:49 07/26/2007/26/2025 CBC W/DIF F absolute immature granulocytes 0.0 10'3/ uL 0.00-0 .10 Refer ence range s for nonbi nary/ inter sex or unspe cifie d gende r patie nts have not been estab lishe d. Pleglenis e refer to the follo wing table for range s estab lishe d for cisge nder patie nts and evalu ate in the clini eric moon xt of the indiv idual patie nt: https ://la bhand book. nm.or g/gen derx Not Available [facility] (Lab) [address], [place], [address], 07/27/2025 14:58:49 07/26/2007/26/2025 HIV 1/2 ANTIG EN/AN TIBOD Y, REFLE X CONFI RMATI ON HIV antigen/anti body Nonrea ctive nonrea ctive HIV-1 antig en and HIV-1 /HIV- 2 antib odies were not detec mamadou. No labor atory evide nce of HIV infec tion. Not Available [facility] (Lab) [address], [place], [address], 07/27/2025 14:58:50 07/26/2007/26/2025 HEPAT ITIS B SURFA CE ANTIG EN hepatitis B surface antigen Non-re active non-re active This assay was perfo rmed using [employer] ratio n reage nts and test kits. Value s obtai jennifer with other assay metho ds or kits canno t be used inter sanches eably . Not Available [facility] (Lab) [address], [place], [address], 07/27/2025 14:58:50 07/26/20 25 07/26/2025 HEPAT ITIS C ANTIB ESTEBAN SCREE N, REFLE X TO CONFI RMATI ON hepatitis C antibody Non-re active non-re active Antib odies to HCV Not Detec mamadou, does not exclu de the possi bilit y of expos ure to HCV. Not Available [facility] (Lab) [address], [place], [address], 07/27/2025 14:58:51 07/26/20 25 07/26/2025 TYPE/ RH/SC REEN ABO/Rh type A POS Not Available [facility] (Lab) [address], [place], [address], 07/27/2025 14:58:51 07/26/20 25 07/26/2025 TYPE/ RH/SC REEN antibody screen NEG Not Available [facility] (Lab) [address], [place], [address], 07/27/2025 14:58:51 07/26/20 25 07/26/2025 TYPE/ RH/SC REEN exp date 2024 23:59 Not Available [facility] (Lab) [address], [place], [address], 07/27/2025 14:58:51 07/26/20 25 07/26/2025 RUBEL LA IGG ANTIB ESTEBAN, QUANT rubella antibodies, IgG Reacti ve reacti ve Not Available [facility] (Lab) [address] [place], [address], 07/27/2025 14:58:52 07/26/20 25 07/26/2025 RUBEL LA IGG ANTIB ESTEBAN, QUANT rubella antibodies, IgG quant 19.3 IU/mL >=10 Non-r eacti ve (Non- Immun e) <10 IU/mL React farhad (Immu ne) > or = 10 IU/mL Not Available [facility] (Lab) [address], [place], [address], 07/27/2025 14:58:52 07/26/20 25 07/26/2025 HEMOG LOBIN A1C hemoglobin A1C 5.0 % [...] >8.0% Actio n sugge sted Not Available [facility] (Lab) [address], [place], [address], 07/27/2025 14:58:52 07/26/2007/26/2025 RPR SCREE N, REFLE X TITER /CONF IRMAT ION RPR qualitative Nonrea ctive nonrea ctive Not Available [facility] (Lab) [address], [place], [address], 07/27/2025 14:58:52 08/09/20 25 08/09/2025 US, obste tric, nucha l trans lucen cy No observ ation record ed. [facility] [address], [place], [address], 08/09/2025 17:34:54 08/09/20 25 08/09/2025 US, obste tric, nucha l trans lucen cy No observ ation record ed. [email or web address] [facility] [address] [address], [place], [address], 08/11/2025 01:38:49 Result Notes None recorded. Problems Name Problem SNOMED Code Status Onset Date Resolution Date Notes Provider Name and Address Organization Details Recorded Time Small for gestatio nal age fetus 954006133 Completed MFM referral faxed 01/12 [facility]- schedule d 01-21 230 Level II US only [facility] LUAN MCKEON MD [address], [place], [address], [place] [facility] 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 11:37:[address] Concept Completed 201701/04/2021 Encntr for lock master exam (general ) (routine ) w/o abn findings ;Recorde d Elsewher e: No Locat ion: [facility] N Juanpabloti ce ID: [id number] Rafiq lable Time: 09:00:00 AM Dona Hancock [facility] 11:37:49 Screenin g for malignan t neoplasm of cervix Completed 201701/04/2021 Encounte r for screenin g for malignan t neoplasm of cervix;R ecorded Elsewher e: No Locat ion: [facility] S ource: EHR Straightedge Worker wiley: N Juanpabloti ce ID: [id number] Rafiq lable Time: 09:00:00 AM Dona noe [facility] 11:37:[address] Concept Completed 201801/04/2021 Encntr for routine child health exam w/o abnormal findings ;Recorde d Elsewher e: No Locat ion: [facility] S ource: EHR Straightedge Worker wiley: N Juanpabloti ce ID: [id number] Rafiq lable Time: 08:15:00 AM Dona noe [facility] 11:37:47 Pregnanc y 88193183 Completed 202305/27/2024 Kenna noe [facility] 5 17:05:02 Pregnanc y 30494705 Active 2024 Kenna noe, [facility] 5 17:05:02 Past pregnanc y history of gestatio nal hyperten eulogio 294914239 Active 2024 bASGaby MCKEON MD [address], [place], [address], [facility] 5 14:00:08 Notes:[facility] referral [facility] 01/12 [facility] Problem Notes None recorded. Procedures Surgical History Date Name Laterality Status Provider Name and Address Organization Details Recorded Time 3 Date of Last Pap Smear completed Anne Gonzalez [facility] 03/24/2024 14:59:37 6 extraction of wisdom tooth completed Dona Hancock [facility] 01/04/2021 11:39:26 Imaging Results None recorded. Procedure Notes None recorded. Medical Equipment None Reported. Allergies Allergen ID Allergen Name Allergen Category Reaction Reaction Severity Criticality Documentation Date Start Date Code Code System Note Provider Name and Address Organization Details Recorded Time 72605 Product containin g penicilli n (product) medicatio n Not available Not available Not available 10/19/2020 37748 8001 SNOMED Comme nt: [facility]; Not Available [...] Prescrib janet Fabian e: No Locat ion: [facility] odify By: yeni cee DateTime : 02/21/20 17 01:45:00 PM [...] Updated DateTime 07/18/2025 160.02 cm 28 kg/m2 55436.59 g 137/85 mm[Hg] Kenna Sawyer [facility] 07/18/2025 17:20:48 Social History Question Answer Notes LastModified by Organizat ion Details LastModified Time Tobacco Smoking Status Never Smoker Dona Hancock null, [facility] 01/04/2021 11:39:12 If You Are , What Was Your Level Of Alcohol Consumption Prior To ? None [email or web address] Information not available 01/04/2021 Are You Blind Or Do You Have Difficulty Seeing? No [email or web address] Information n ot available 01/04/2021 What Is Your Level Of Caffeine Consumption? Moderate Information not available 01/04/2021 In The 14 Days Before Symptom Onset, Have You Had Close Contact With A Laboratory-confirm ed COVID-19 While That Case Was Ill? No [email or web address] Information n ot available 01/04/2021 In The 14 Days Before Symptom Onset, Have You Had Close Contact With A Person Who Is Under Investigation For COVID-19 While That Person Was Ill? No [email or web address] Information not available 01/04/2021 Have You Been To An Area Known To Be High Risk For COVID-19? No Information not available 01/04/2021 Are You Deaf Or Do You Have Serious Difficulty Hearing? No [email or web address] Information not available 01/04/2021 What Type Of Diet Are You Following? REGULAR [email or web address] Information n ot available 01/04/2021 Have You Ever Been Counseled For Unhealthy Alcohol Use? No [email or web address] Information not available 01/04/2021 Do You Use Your Seat Belt Or Car Seat Routinely? Yes [email or web address] Information not available 01/04/2021 Are You Sexually Active? Yes [email or web address] Information not available 03/24/2024 Do You Have Smoke And Carbon Monoxide Detectors In Your Home? Yes [email or web address] Information not available 01/04/2021 Do You Use Sunscreen Routinely? Yes [email or web address] Information not available 01/04/2021 Has Tobacco Cessation Counseling Been Provided? No [email or web address] Information not available 01/04/2021 Do You Have Difficulty Walking Or Climbing Stairs? No [email or web address] Information not available 03/24/2024 Sex: Unknown Functional Status Question Answer Note LastModified by Organizat ion Details LastModified Time Do you use any illicit or recreational drugs? No [email or web address] Information not available 01/04/2021 Do you or have you ever used any other forms of tobacco or nicotine? No [email or web address] Information not available 01/04/2021 What is your level of alcohol consumption? Occasional [email or web address] Information not available 01/04/2021 Are you able to walk independently without assistance or assistive devices? YESWOREST [email or web address] Information not available 01/04/2021 Are you able to care for yourself independently? Yes [email or web address] Information not available 03/24/2024 Do you have difficulty dressing, bathing, grooming, or toileting? No Information not available 03/24/2024 What is your exercise level? Occasional [email or web address] Information not available 01/04/2021 Mental Status Question Answer Note LastModified by Organization D etails LastModified Time Do you feel stressed (tense, restless, nervous, or anxious, or unable to sleep at night)? [id number] [email or web address] Information not available 01/04/2021 Family History Relationship Description Onset Age of this Age Resolved Age Notes LastModified by Organization Details LastModified Time Maternal Grandmother Diabetes mellitus [email or web address] Not available 01/03 17:50:54 Maternal Aunt Malignant neoplasm of breast 50 [email or web address] Not available 01/04 18:38:25 Maternal Grandfather Malignant neoplasm of colon 82 [email or web address] Not available 01/04 18:38:51 Medical History Condition [...] ICD10 Code Diagnosis IMO Codes Diagnosis Note [id number] LUAN MCKEON MD [place] [address] [address] 07/10/2025 15:56:03 07/10/2025 16:25:50 Threatened miscarriage 07123400 O20.0 Z3A.01 [id number] LUAN MCKEON MD [place] [address] [address] 07/18/2025 17:11:39 07/18/2025 17:55:30 test positive 341429766 Z32.01 [id number] 1. Exam today within normal limits.2. Ultrasound today confirms GA and viability. EDC . GC/Clameche a testing done: will f/u as indicated. 4. ACOG guidelines and plan of care for reviewed with patient. All questions answered.5 . Return to office at 12 weeks for new OB visit6. Will need new OB labs at next visit.7. Genetic screening: desires at 10 weeks. screening 2437 07446 Z36.0 Health Concerns Section Related Observation LastModified by Organization Detai ls LastModified Time None Recorded Concern Status LastModified by Organization Details LastModified Time None Recorded Payers Encounter Date Sequence Insurance Name Policy Number Policy Bailey Covered Member ID Bailey Member ID Guarantor Name 07/18/2025 1 [employer] (POS II) [id number] Beata Martinez [id number] Beata Martinez OBGyn Episode Ob Episode Information Episode Created Date Number of Fetuses Patient Bloodtype Patient rh Status Prepregnancy Weight lbs Domestic Partner Domestic Partner Phone Father Name Mohs Surgeon/General Dermatologist Status 08/09/20 25 1 A Positive Juan Diego OPEN Fetus Data First Name Last Name Admitted to NICU Weight (g) Sex Living Outcome Pediatric Complications Fetus ID Race Codes Race Delivery Type [id number] Problems Problem Notes Problem Name Start Date End Date Resolution Snomed Code Not e Past history of gestational hypertension 08/10/2025 [id number] bAS A ppx Artem Calculation Initial Artem [...] Weight in lbs Pre/Post Dialysis Refused Weight 161.634435485306 BP Diastolic BP Location Tested BP Systolic BP Type 84 L arm 137 sitting Fetus Heart Rate Present A Present Fetus Movement Comments Patient presents to [facility] care. Hx of gestational HTN, [...] Weight in lbs Pre/Post Dialysis Refused Weight 164.313392078008 BP Diastolic BP Location Tested BP Systolic [...]
== END 2025-09-14 15:47 | disposition home or self-care (01) ==
PROVIDERS: Visit Provider Obstetrics & Gynecology
DX: I82.462 Acute embolism and thrombosis of left calf muscular vein (principal)
CPT/HCPCS: 93971

== ENCOUNTER 2025-09-20 21:32 | Observation (INO) | payer OTHER, SELFPAY ==
[2025-09-20] VITALS (31 sets, daily range): BP systolic 98–111; BP diastolic 53–61; PULSE 86–103; TEMP 37.7; O2SAT 97–100; BMI 28.9
[2025-09-20 22:12] LABS: Hematocrit 37.7 % (37.0-47.0); Hemoglobin 12.7 g/dL (12.0-15.0); Immature Granulocyte Percent A 0.5 % (0-0.5); Lymphocytes Absolute Auto 0.49 K/mm3 (0.9-3.2); Mean Corpuscular HGB Conc 33.7 g/dl (32-36); Mean Corpuscular Hemoglobin 30.7 pg (26-34); Mean Corpuscular Volume 91.1 fl (80-100); Nucleated Red Blood Cells Absolute Auto 0.000 K/mm3 (0.0-0.012); Nucleated Red Blood Cells Perc 0.0 % (0.0-0.2); Platelet Count Result 178 k/mm3 (150-375); Red Blood Count 4.14 M/mm3 (4.2-5.4); White Blood Count 10.1 K/mm3 (4.5-10.0)
[2025-09-20 22:26] LABS: Alanine Aminotransferase 13 U/L (6-35); Albumin Level 4.2 g/dL (3.5-5.1); Alkaline Phosphatase 65 U/L (38-126); Anion Gap 8 mmol/L (4-12); Aspartate Amino Transferase 21 U/L (14-36); Bilirubin,Total 1.2 mg/dL (0.2-1.3); Blood Urea Nitrogen 8 mg/dL (7-17); Calcium 8.5 mg/dL (8.4-10.2); Carbon Dioxide 22 mmol/L (22-30); Chloride 104 mmol/L (98-107); Estimated CRCL calculation 99 ml/min; Estimated Glomerular Filt Rate > 60; Glucose 101 mg/dL (65-110); Potassium 3.5 mmol/L (3.4-5.0); Sodium 134 mmol/L (137-145); Total Protein 7.1 g/dL (6.3-8.2)
[2025-09-20] MEDS: ONDANSETRON INJ 4 MG/2 ML VIAL IV PUSH (22:30)
[2025-09-20] MEDS: LACTATED RINGERS 1,000 ML 999 ML IV CONT (22:30)
--- NOTE | 2025-09-20 22:37 | PC.NURSE ---
2131- Pt is a who presents to the unit with complaints of N/V over the past 24 hours. Pt denies any LOF, contractions, or vaginal bleeding, pt states she feels movement. Pt denies any complications this but states she has a hx of GHTN. RN doppled FHTs. FHTs noted to be in 160s. 2223- RN called CNM. RN notified CNM of pts arrival to unit and complaints of N/V. RN made CNM aware of vital signs, and that labs had not yet resulted. Orders received.
--- NOTE | 2025-09-20 23:58 | PC.NURSE ---
Pt states she feels better since completion of IV fluids and zofran. 2346- RN called CNM. RN reported improvement in patients nausea and vomiting. Orders received.
--- OUTSIDE RECORDS SUMMARY | 2025-09-21 01:57 | XMS_ITS | Continuity of Care Document ---
Author Organization [facility] [place] Address [address] [place] [address] [place] [address] Care Team Providers Care Classifier Tender Name Role Phone DIONI VERNON Primary Care Provider [phone] Assessment No assessment recorded. Plan of Treatment [...] obstetr ic, 1st trimest er 2024 025 [email or web address] [place], [address], [place], [address], 07/11/2025 14:40:35 Medication Orders None recorde d. Patient TargetsNo targets recorded. Patient InstructionsNo instructions recorded. Reason for Referral None Reported. Results Created Date Observation Date Name Description Value Unit Range Abnormal Flag Note LastModifiedBy Organization Detail LastModifiedTime 08/09/2008/09/2025 US, obste tric, nucha l trans lucen cy No observ ation record ed. [facility] [address], [place], [address], 08/09/2025 17:34:54 08/09/2008/09/2025 US, obste tric, nucha l trans lucen cy No observ ation record ed. [email or web address], [place], [address], 08/11/2025 01:38:49 09/14/20 25 09/14/2025 US, doppl er, venou s No observ ation record ed. [address] [facility], [place], [address], 09/15/2025 13:32:39 09/14/20 25 09/14/2025 US, doppl er, venou s No observ ation record ed. [address] [address], [place], [address], 09/14/2025 20:55:33 09/14/2009/14/2025 imagi ng/di agnos tic resul t No observ ation record ed. [address] [facility], [place], [address], 09/15/2025 13:32:40 Result Notes None recorded. Problems Name Problem SNOMED Code Status Onset Date Resolution Date Notes Provider Name and Address Organization Details Recorded Time Small for gestatio nal age fetus 664521098 Completed MFM referral faxed 01/12 [facility] MFM- schedule d 01-21 230 Level II [facility] [address], [place], [address], [facility] 4 14:19:39 Uses combined oral contrace ption [id number] Completed 201601/04/2021 Encounte r for initial prescrip tion of contrace ptive pills;Re corded Elsewher e: No Locat ion: Nora howell [facility] S ource: EHR Arch Pad Cementer wiley: N Practi ce ID: [id number] Rafiq lable Time: 01:45:00 PM Dona noe, [facility] 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 11:37:49 Screenin g for malignan t neoplasm of cervix Completed 201701/04/2021 Encounte r for screenin g for malignan t neoplasm of cervix;R ecorded Elsewher e: No [facility] S ource: EHR Arch Pad Cementer wiley: N Practi ce ID: 0001 Rafiq lable Time: 09:00:00 AM Dona noe, [facility] 11:37:[address] Concept Completed 201801/04/2021 Encntr for routine child health exam w/o abnormal findings ;Recorde d Elsewher e: No Locat ion: [facility] S ource: EHR Arch Pad Cementer wiley: N Juanpabloti ce ID: 0001 Rafiq lable Time: 08:15:00 AM Dona noe, [facility] 11:37:47 Pregnanc y [id number] Completed 202305/27/2024 Kenna noe, [facility] 17:05:02 Pregnanc y 06879667 Active 2024 Kenna noe, [facility] 17:05:02 Past pregnanc y history of gestatio nal hyperten eulogio 816987763 Active 2024 Sumit MCKEON MD [address], [place], [address], [facility] 10/09/202 5 14:00:08 Notes:MFM referral [facility] faxed 01/12 [facility] Problem Notes None recorded. Procedures Surgical History Date Name Laterality Status Provider Name and Address Organization Details Recorded Time 3 Date of Last Pap Smear completed Anne Gonzalez [facility] 03/24/2024 14:59:37 6 extraction of wisdom tooth completed Dona Hancock [facility] 01/04/2021 11:39:26 Imaging Results None recorded. Procedure Notes None recorded. Medical Equipment None Reported. Allergies Allergen ID Allergen Name Allergen Category Reaction Reaction Severity Criticality Documentation Date Start Date Code Code System Note Provider Name and Address Organization Details Recorded Time 26019 Product containin g penicilli n (product) medicatio n Not available Not available Not available 10/19/2020 12063 8001 SNOMED Comme nt: [facility]; [facility] 14:17:57 Medications Name Sig Start [...] Prescrib janet Fabian e: No Locat ion: [facility] odify By: yeni cee DateTime : 02/21/20 01:45:00 PM Not Available [...] Antigen Home Test kit REFER TO MANUFACT NOER INSTRUCT IONS INCLUDED IN PACKAGIN G 10/16 completed Not Available Not Available Not Available Vitals None Recorded Social History Question Answer Notes LastModified by Organizat ion Details LastModified Time Tobacco Smoking Status Never Smoker Dona Hancock [facility], [facility] 01/04/2021 11:39:12 If You Are , What Was Your Level Of Alcohol Consumption Prior To ? None [email or web address] Information not available 01/04/2021 Are You Blind Or Do You Have Difficulty Seeing? No [email or web address] Information n ot available 01/04/2021 What Is Your Level Of Caffeine Consumption? Moderate [email or web address] Information not available 01/04/2021 In The 14 Days Before Symptom Onset, Have You Had Close Contact With A Laboratory-confirm ed COVID-19 While That Case Was Ill? No [email or web address] Information n ot available 01/04/2021 In The 14 Days Before Symptom Onset, Have You Had Close Contact With A Person Who Is Under Investigation For COVID-19 While That Person Was Ill? No Information not available 01/04/2021 Have You Been To An Area Known To Be High Risk For COVID-19? No [email or web address] Information not available 01/04/2021 Are You Deaf Or Do You Have Serious Difficulty Hearing? No [email or web address] Information not available 01/04/2021 What Type Of Diet Are You Following? REGULAR [email or web address] Information n ot available 01/04/2021 Have You Ever Been Counseled For Unhealthy Alcohol Use? No [email or web address] Information not available 01/04/2021 Do You Use Your Seat Belt Or Car Seat Routinely? Yes [email or web address] Information not available 01/04/2021 Are You Sexually Active? Yes [email or web address] Information not available 03/24/2024 Do You Have Smoke And Carbon Monoxide Detectors In Your Home? Yes [email or web address] Information not available 01/04/2021 Do You Use Sunscreen Routinely? Yes [email or web address] Information not available 01/04/2021 Has Tobacco Cessation Counseling Been Provided? No Information not available 01/04/2021 Do You Have Difficulty Walking Or Climbing Stairs? No [email or web address] Information not available 03/24/2024 Sex: Unknown Functional Status Question Answer Note LastModified by Organizat ion Details LastModified Time Do you use any illicit or recreational drugs? No Information not available 01/04/2021 Do you or have you ever used any other forms of tobacco or nicotine? No [email or web address] Information not available 01/04/2021 What is your level of alcohol consumption? Occasional [email or web address] Information not available 01/04/2021 Are you able to walk independently without assistance or assistive devices? YESWOREST [email or web address] Information not available 01/04/2021 Are you able to care for yourself independently? Yes [email or web address] Information not available 03/24/2024 Do you have difficulty dressing, bathing, grooming, or toileting? No [email or web address] Information not available 03/24/2024 What is your exercise level? Occasional [email or web address] Information not available 01/04/2021 Mental Status Question Answer Note LastModified by Organization D etails LastModified Time Do you feel stressed (tense, restless, nervous, or anxious, or unable to sleep at night)? [id number] [email or web address] Information not available 01/04/2021 Family History Relationship Description Onset Age of this Age Resolved Age Notes LastModified by Organization Details LastModified Time Maternal Grandmother Diabetes mellitus Not available 01/03 17:50:54 Maternal Aunt Malignant neoplasm of breast 50 [email or web address] Not available 01/04 18:38:25 Maternal Grandfather Malignant neoplasm of colon 82 [email or web address] Not available 01/04 18:38:51 Medical History Condition Response Allergies (Food, seasonal, environmental ) N Other N Drug/Latex Allergies/Reactions N Blood Transfusion N Breast Cancer N Dermatologic Disorders N Lung Disease N Defects or Inherited Disease N Breast Problem N Gestational Diabetes N Hematologic disorders N Anesthesia Complications N History of STI N Deep Vein Thrombosis N Polycystic ovary syndrome N Anxiety Disorder N Autoimmune disease N Arthritis N Polyps N Infertility N Acid Reflux (GERD) N History of abnormal pap N Cancer N Varicosities N Stroke N Neurologic/Epilepsy N Endometriosis N High Cholesterol N Fibromyalgia N Headaches N Kidney Disease N Heart Problems N Thyroid Problems N Kidney or Bladder Problems N GI Problems N Eating Disorder [...] ICD10 Code Diagnosis IMO Codes Diagnosis Note [id number] LUAN MCKEON MD [place] [address] [address] 07/10/2025 15:56:03 07/10/2025 16:25:50 Threatened miscarriage [id number] O20.0 Z3A.01 94204 Health Concerns Section Related Observation LastModified by Organization Detai ls LastModified Time None Recorded Concern Status LastModified by Organization Details LastModified Time None Recorded Payers Encounter Date Sequence Insurance Name Policy Number Policy Bailey Covered Member ID Bailey Member ID Guarantor Name 07/10/2025 1 [employer] (POS II) [id number] Beata Martinez [id number] Beata Martinez OBGyn Episode Ob Episode Information Episode Created Date Number of Fetuses Patient Bloodtype Patient rh Status Prepregnancy Weight lbs Domestic Partner Domestic Partner Phone Father Name Director Medicaid Status 08/09/20 25 1 A Positive Juan Diego OPEN Fetus Data First Name Last Name Admitted to NICU Weight (g) Sex Living Outcome Pediatric Complications Fetus ID Race Codes Race Delivery Type [id number] Problems Problem Notes Problem Name Start Date End Date Resolution Snomed Code Not e Past history of gestational hypertension 08/10/2025 [id number] bAS A ppx Artem Calculation Initial Artem [...] Weight in lbs Pre/Post Dialysis Refused Weight 161.022816922452 BP Diastolic BP Location Tested BP Systolic BP Type 84 L arm 137 sitting Fetus Heart Rate Present A Present Fetus Movement Comments Patient presents to [facility] care. Hx of gestational HTN, discussed bASA ppx. otherwise uncomplicated. No nausea or cramping. NT/NB wnl today. LR female NIPT! Other OB labs wnl. RTC 4 weeks for routine care. Flowsheet Date 09/06/2025 Bauer Score Blood Edema Fundus Height Fundus Units Glucose Ketones Leukocytes Nitrite Labor Signs Protein Cervic Dilation Cervic Effacement Cervic Station Type Weight in lbs Pre/Post Dialysis Refused Weight 164.196151104036 BP Diastolic BP Location Tested BP Systolic [...]
--- OUTSIDE RECORDS SUMMARY | 2025-09-21 01:57 | XMS_ITS | Data Portability ---
Author Organization [facility] Address [address] [place] [address] [place] [address] Care Team Providers Care Receptionist Secretary Name Role Phone DIONI VERNON Primary Care [...] RNA, unspeci fied specime n 2024 025 [facility] (Lab), [address], [place], [address], 08/11/2025 01:24:59 culture , urine 2024 025 [facility] (Lab), [address] [place], [address], 08/11/2025 01:25:00 drug screen, urine 2024 025 [facility], [address], [place], [address], 08/11/2025 01:38:04 aneuplo idy risk, chromos ome specifi c circula ting cell free (ccf) DNA, materna l serum 2024 025 [facility], [address], [place], [address], 07/31/2025 21:14:58 HbA1c (hemogl obin A1c), blood 2024 025 [facility] (Lab), [address], [place], [address], 07/27/2025 14:58:52 type + screen, blood 2024 025 [facility] (Lab), [address], [place], [address], 07/27/2025 14:58:51 rubella igg Ab, titer, serum 2024 025 [facility] (Lab), [address] [place], [address], 07/27/2025 14:58:52 CBC w/ auto diff 2024 025 [facility] (Lab), [address], [place], [address], 07/27/2025 14:58:49 hepatit is C virus Ab, serum 2024 025 [facility] (Lab), [address] [place], [address], 07/27/2025 14:58:51 HBsAg (hepati tis B surface Ag), serum 2024 025 [facility] (Lab), [address], [place], [address], 07/27/2025 14:58:50 RPR (rapid plasma reagin) , serum 2024 025 [facility] (Lab), [address], [place], [address], 07/27/2025 14:58:53 HIV 1+2 AB + HIV 1 p24 Ag, qualita tiasmita immunoa ssay, serum 2024 025 [facility] (Lab), [address], [place], [address], 07/27/2025 14:58:50 Referral None recorde d. Procedures None recorde d. Surgeries None recorde d. Imaging US, obstetr ic, nuchal translu cency 2024 025 [email or web address], [address], [place], [address], 08/10/2025 15:56:52 US, obstetr ic, 1st trimest er 2024 025 [email or web address], [address], [place], [address], 07/11/2025 14:40:35 Medication Orders None recorde d. Patient TargetsNo targets recorded. Patient InstructionsNo instructions recorded. Reason for Referral None Reported. Results Created Date Observation Date Name Description Value Unit Range Abnormal Flag Note LastModifiedBy Organization Detail LastModifiedTime 07/31/2007/31/2025 [UNIT Y] ANEUP LOIDY NIPT fraction 6.3% normal Not Available [facility] [address], [place], [address], 07/31/2025 21:14:58 07/31/2007/31/2025 [UNIT Y] ANEUP LOIDY NIPT 22Q11.2 microdeletio n LOW RISK <1 in 10,000 normal Not Available [facility] [address], [place], [address], 07/31/2025 21:14:58 07/31/2007/31/2025 [UNIT Y] ANEUP LOIDY NIPT sex chromosome aneuploidy NOT DETECT ED normal Not Available [facility] [address], [place], [address], 07/31/2025 21:14:58 07/31/20 25 07/31/2025 [UNIT Y] ANEUP LOIDY NIPT monosomy X LOW RISK <1 in 10,000 normal Not Available [facility] [address], [place], [address], 07/31/2025 21:14:58 07/31/20 25 07/31/2025 [UNIT Y] ANEUP LOIDY NIPT trisomy 13 LOW RISK <1 in 10,000 normal Not Available [facility] [address], [place], [address], 07/31/2025 21:14:58 07/31/20 25 07/31/2025 [UNIT Y] ANEUP LOIDY NIPT trisomy 18 LOW RISK <1 in 10,000 normal Not Available [facility] [address], [place], [address], 07/31/2025 21:14:58 07/31/20 25 07/31/2025 [UNIT Y] ANEUP LOIDY NIPT trisomy 21 LOW RISK <1 in 10,000 normal Not Available [facility] [address], [place], [address], 07/31/2025 21:14:58 07/31/20 25 07/31/2025 [UNIT Y] ANEUP LOIDY NIPT sex FEMALE normal Not Available [facility] [address], [place], [address], 07/31/2025 21:14:58 07/31/20 25 07/31/2025 [UNIT Y] ANEUP LOIDY NIPT gestation SINGLE TON normal Not Available [facility] [address], [place], [address], 07/31/2025 21:14:58 07/31/20 25 07/31/2025 [UNIT Y] ANEUP LOIDY NIPT for detailed report, see pdf See PDF normal Not Available [facility] [address], [place], [address], 07/31/2025 21:14:58 07/26/2007/26/2025 CBC W/DIF F WBC 9.4 10'3/ uL 3.5-10 .5 Not Available [facility] (Lab) [address], [place], [address], 07/27/2025 14:58:49 07/26/20 25 07/26/2025 CBC W/DIF F RBC 4.60 10'6/ uL (based on docume nted legal sex) 3.80-5 .20 Not Available [facility] (Lab) [address], [place], [address], 07/27/2025 14:58:49 07/26/2007/26/2025 CBC W/DIF F HGB 13.7 g/dL (based on docume nted legal sex) 11.6-1 5.4 Not Available [facility] (Lab) [address], [place], [address], 07/27/2025 14:58:49 07/26/2007/26/2025 CBC W/DIF F HCT 42.3 % (based on docume nted legal sex) 34.0-4 5.0 Not Available [facility] (Lab) [address], [place], [address], 07/27/2025 14:58:49 07/26/2007/26/2025 CBC W/DIF F MCV 92.0 fL 80.0-9 9.0 Not Available [facility] (Lab) [address] [place], [address], 07/27/2025 14:58:49 07/26/2007/26/2025 CBC W/DIF F MCH 29.8 pg 27.0-3 4.0 Not Available [facility] (Lab) [address] [place], [address], 07/27/2025 14:58:49 07/26/2007/26/2025 CBC W/DIF F MCHC 32.4 g/dL 32.0-3 5.5 Not Available [facility] (Lab) [address], [place], [address], 07/27/2025 14:58:49 07/26/2007/26/2025 CBC W/DIF F RDW 12.4 % 11.0-1 5.0 Not Available [facility] (Lab) [address], [place], [address], 07/27/2025 14:58:49 07/26/2007/26/2025 CBC W/DIF F plt 219 10'3/ uL 150-40 0 Not Available [facility] (Lab) [address], [place], [address], 07/27/2025 14:58:49 07/26/20 25 07/26/2025 CBC W/DIF F MPV 11.9 fL 8.8-12 .1 Not Available [facility] (Lab) [address], [place], [address], 07/27/2025 14:58:49 07/26/20 25 07/26/2025 CBC W/DIF F NRBC's 0.0 % 0.0 Not Available [facility] (Lab) [address], [place], [address], 07/27/2025 14:58:49 07/26/2007/26/2025 CBC W/DIF F absolute NRBCs 0.0 10'3/ uL no refere nce range establ ished Not Available [facility] (Lab) [address], [place], [address], 07/27/2025 14:58:49 07/26/20 25 07/26/2025 CBC W/DIF F neutrophils 75.8 % 34.0-7 3.0 high Not Available [facility] (Lab) [address], [place], [address], 07/27/2025 14:58:49 07/26/2007/26/2025 CBC W/DIF F lymphocytes 16.6 % 15.0-5 0.0 Not Available [facility] (Lab) [address], [place], [address], 07/27/2025 14:58:49 07/26/2007/26/2025 CBC W/DIF F monocytes 5.6 % 1.0-15 .0 Not Available [facility] (Lab) [address], [place], [address], 07/27/2025 14:58:49 07/26/2007/26/2025 CBC W/DIF F eosinophils 1.2 % 0.0-8. 0 Not Available [facility] (Lab) [address], [place], [address], 07/27/2025 14:58:49 07/26/2007/26/2025 CBC W/DIF F basophils 0.5 % 0.0-2. 0 Not Available [facility] (Lab) [address] [place], [address], 07/27/2025 14:58:49 07/26/2007/26/2025 CBC W/DIF F immature granulocytes 0.3 % no define d refere nce range Immat ure Granu locyt es (IG) repre sents autom ated enume ratio n of Metam yeloc ytes, Myelo cytes and Promy elocy yanni when IG is < 5%. Blast s are not inclu ded in IG and repor mamadou separ ately if prese nt. Not Available [facility] (Lab) [address], [place], [address], 07/27/2025 14:58:49 07/26/2007/26/2025 CBC W/DIF F absolute neutrophils 7.1 10'3/ uL 1.5-8. 0 Not Available [facility] (Lab) [address], [place], [address], 07/27/2025 14:58:49 07/26/2007/26/2025 CBC W/DIF F absolute lymphocytes 1.6 10'3/ uL 1.0-4. 0 Not Available [facility] (Lab) [address] [place], [address], 07/27/2025 14:58:49 07/26/2007/26/2025 CBC W/DIF F absolute monocytes 0.5 10'3/ uL 0.2-1. 0 Not Available [facility] (Lab) [address], [place], [address], 07/27/2025 14:58:49 07/26/2007/26/2025 CBC W/DIF F absolute eosinophils 0.1 10'3/ uL 0.0-0. 6 Not Available [facility] (Lab) [address], [place], [address], 07/27/2025 14:58:49 07/26/2007/26/2025 CBC W/DIF F absolute basophils 0.1 10'3/ uL 0.0-0. 3 Not Available [facility] (Lab) [address] [place], [address], 07/27/2025 14:58:49 07/26/2007/26/2025 CBC W/DIF F absolute [...] naik book. nm.or g/gen derx Not Available [facility] (Lab) [address], [place], [address], 07/27/2025 14:58:49 07/26/2007/26/2025 HIV 1/2 ANTIG EN/AN TIBOD Y, REFLE X CONFI RMATI ON HIV antigen/anti body Nonrea ctive nonrea ctive HIV-1 antig en and HIV-1 /HIV- 2 antib odies were not detec mamadou. No labor atory evide nce of HIV infec tion. Not Available [facility] (Lab) [address], [place], [address], 07/27/2025 14:58:50 07/26/2007/26/2025 HEPAT ITIS B SURFA CE ANTIG EN hepatitis B surface antigen Non-re active non-re active This assay was perfo rmed using [employer] ratio n reage nts and test kits. Value s obtai jennifer with other assay metho ds or kits canno t be used inter sanches eably . Not Available [facility] (Lab) [address], [place], [address], 07/27/2025 14:58:50 07/26/20 25 07/26/2025 HEPAT ITIS C ANTIB ESTEBAN SCREE N, REFLE X TO CONFI RMATI ON hepatitis C antibody Non-re active non-re active Antib odies to HCV Not Detec mamadou, does not exclu de the possi bilit y of expos ure to HCV. Not Available [facility] (Lab) [address] [place], [address], 07/27/2025 14:58:51 07/26/2007/26/2025 TYPE/ RH/SC REEN ABO/Rh type A POS Not Available [facility] (Lab) [address] , [place], [address], 07/27/2025 14:58:51 07/26/20 25 07/26/2025 TYPE/ RH/SC REEN antibody screen NEG Not Available [facility] (Lab) [address], [place], [address], 07/27/2025 14:58:51 07/26/20 25 07/26/2025 TYPE/ RH/SC REEN exp date 2024 23:59 Not Available [facility] (Lab) [address], [place], [address], 07/27/2025 14:58:51 07/26/2007/26/2025 RUBEL LA IGG ANTIB ESTEBAN, QUANT rubella antibodies, IgG Reacti ve reacti ve Not Available [facility] (Lab) [address], [place], [address], 07/27/2025 14:58:52 07/26/20 25 07/26/2025 RUBEL LA IGG ANTIB ESTEBAN, QUANT rubella antibodies, IgG quant 19.3 IU/mL >=10 Non-r eacti ve (Non- Immun e) <10 IU/mL React farhad (Immu ne) > or = 10 IU/mL Not Available [facility] (Lab) [address], [place], [address], 07/27/2025 14:58:52 07/26/2007/26/2025 HEMOG LOBIN A1C hemoglobin [...] >8.0% Actio n sugge sted Not Available [facility] (Lab) [address], [place], [address], 07/27/2025 14:58:52 07/26/2007/26/2025 RPR SCREE N, REFLE X TITER /CONF IRMAT ION RPR qualitative Nonrea ctive nonrea ctive Not Available [facility] (Lab) [address] [place], [address], 07/27/2025 14:58:52 08/09/2008/09/2025 CT/GC AND TRICH OMONA S VAGIN CONSTANCE (RRNA ), URINE chlamydia trachomatis, PCR Negati ve negati ve Not Available [facility] (Lab) [address], [place], [address], 08/11/2025 01:24:58 08/09/2008/09/2025 CT/GC AND TRICH OMONA S VAGIN CONSTANCE (RRNA ), URINE neisseria gonorrhoeae, PCR Negati ve negati ve Not Available [facility] (Lab) [address] [place], [address], 08/11/2025 01:24:58 08/09/2008/09/2025 CT/GC AND TRICH OMONA S VAGIN CONSTANCE (RRNA ), URINE trichomonas vaginalis ribosomal RNA (rrna) [place] [address] 49_CL _SOUR CETVG : Urine - Bladd er Not Available [facility] (Lab) [address] [place], [address], 08/11/2025 01:24:58 08/09/2008/09/2025 CULTU RE: URINE result report SEE RESULT S BELOW Test: Cultu re: Urine Speci men Sourc e: Urine - Clean Catch Speci men Type: Urine Speci men Date: 2024 1633 Resul t Date: 08/11 0021 Resul t Statu s: Final resul t Abnor mal: No Resul ting Lab: [facility] [address] [facility] [address] Tel: [phone] CULTU RE ----- ----- ----- --- Cultu re resul t (>=3 organ isms prese nt) indic ates possi ble conta minat ion. Repea t cultu re if sympt oms indic ate. Not Available [facility] (Lab) [address], [place], [address], 08/11/2025 01:25:00 07/10/20 25 07/10/2025 US, obste tric, 1st trime ster No observ ation record ed. [email or web address] [place] [address], [place], [address], 07/10/2025 18:18:33 07/10/20 25 07/10/2025 US, obste tric, 1st trime ster No observ ation record ed. KIMBERLI [address], [place], [address], 07/13/2025 17:28:36 08/09/20 25 08/09/2025 US, obste tric, nucha l trans lucen cy No observ ation record ed. [email or web address] [place], [place], [address], 08/09/2025 17:34:54 08/09/20 25 08/09/2025 US, obste tric, nucha l trans lucen cy No observ ation record ed. [email or web address] [address], [place], [address], 08/11/2025 01:38:49 09/14/20 25 09/14/2025 US, doppl er, venou s No observ ation record ed. [facility] [address], [place], [address], 09/15/2025 13:32:39 09/14/20 25 09/14/2025 US, doppl er, venou s No observ ation record ed. [address], [place], [address], 09/14/2025 20:55:33 09/14/20 25 09/14/2025 imagi ng/di agnos tic resul t No observ ation record ed. [facility] [address], [place], [address], 09/15/2025 13:32:40 Result Notes None recorded. Problems Name Problem SNOMED Code Status Onset Date Resolution Date Notes Provider Name and Address Organization Details Recorded Time Small for gestatio nal age fetus 498360092 Completed MFM referral faxed 01/12 [facility]- schedule d 01-21 230 Level II US only [facility] LUAN MCKEON MD [address], [place], [address], [place] [facility] 4 14:19:39 Uses combined oral contrace ption 122538278 Completed 201601/04/2021 Encounte r for initial prescrip tion of contrace ptive pills;Re corded Elsewher e: No Locat ion: [facility] S ource: [employer] wiley: N [place] ce ID: [id number] Rafiq lable Time: 01:45:00 PM Dona noe [facility] 11:37:[address] Concept Completed 201701/04/2021 Encntr for renewals specialist exam (general ) (routine ) w/o abn findings ;Recorde d Elsewher e: No Locat ion: [facility] S ource: [employer] wiley: [address] [place] ce ID: [id number] Rafiq lable Time: 09:00:00 AM Dona noe [facility] 1 11:37:49 Screenin g for malignan t neoplasm of cervix Completed 201701/04/2021 Encounte r for screenin g for malignan t neoplasm of cervix;R ecorded Elsewher e: No Locat ion: [facility] S ource: [employer] wiley: [address] [place] ce ID: [email or web address] Rafiq lable Time: 09:00:00 AM Dona noe [facility] 1 11:37:[address] Concept Completed 201801/04/2021 Encntr for routine child health exam w/o abnormal findings ;Recorde d Elsewher e: No Locat ion: Delmiscarmen dante [facility] S ource: [employer] wiley: N [place] ce ID: [email or web address] Rafiq lable Time: 08:15:00 AM Dona Hancock [facility], [facility] 1 11:37:47 Pregnanc y 70800069 Completed 202305/27/2024 Kenna Handbebe [facility] 5 17:05:02 Pregnanc y 40811808 Active 2024 [facility] 17:05:02 Past pregnanc y history of gestatio nal hyperten eulogio 815157800 Active 2024 [facility] ppx LUAN MCKEON MD [address], [place], [address], [facility] 5 14:00:08 Notes:[facility] referral [facility] 01/12 [facility] Problem Notes None recorded. Procedures Surgical History Date Name Laterality Status Provider Name and Address Organization Details Recorded Time 3 Date of Last Pap Smear completed Anne Gonzalez [facility] 03/24/2024 14:59:37 6 extraction of wisdom tooth completed Dona Hancock [facility] 01/04/2021 11:39:26 Imaging Results None recorded. Procedure Notes None recorded. Medical Equipment None Reported. Allergies Allergen ID Allergen Name Allergen Category Reaction Reaction Severity Criticality Documentation Date Start Date Code Code System Note Provider Name and Address Organization Details Recorded Time 02065 Product containin g penicilli n (product) medicatio n Not available Not available Not available 10/19/2020 28932 3981 SNOMED Comme nt: [facility]; Not Available [facility] [...] Prescrib janet Fabian e: No Locat ion: Nora howell [facility] M odify By: [email or web address] Encounmima r [...] Updated DateTime 07/18/2025 160.02 cm 28 kg/m2 47594.59 g 137/85 mm[Hg] Kenna Sawyer [facility] 07/18/2025 17:20:48 Date Recorded Body height Body mass index (BMI) Body weight Systolic And Diastolic Provider Name and Address Organization Details Last Updated DateTime 08/09/2025 160.02 cm 28.5 kg/m2 30231.37 g 137/84 mm[Hg] Kenna Sawyer [facility] 08/09/2025 17:03:52 Date Recorded Body height Body mass index (BMI) Body weight Systolic And Diastolic Provider Name and Address Organization Details Last Updated DateTime 09/06/2025 160.02 cm 29.1 kg/m2 53952.15 g 135/79 mm[Hg] Kennajonah Salazarbebe [facility] 09/06/2025 16:28:01 Social History Question Answer Notes LastModified by Organizat ion Details LastModified Time Tobacco Smoking Status Never Smoker Dona noe, [facility] 01/04/2021 11:39:12 If You Are , What Was Your Level Of Alcohol Consumption Prior To ? None [email or web address] Information not available 01/04/2021 Are You Blind Or Do You Have Difficulty Seeing? No [email or web address] Information n ot available 01/04/2021 What Is Your Level Of Caffeine Consumption? Moderate [email or web address] Information not available 01/04/2021 In The 14 Days Before Symptom Onset, Have You Had Close Contact With A Laboratory-confirm ed COVID-19 While That Case Was Ill? No [email or web address] Information n ot available 01/04/2021 In The 14 Days Before Symptom Onset, Have You Had Close Contact With A Person Who Is Under Investigation For COVID-19 While That Person Was Ill? No [email or web address] Information not available 01/04/2021 Have You Been To An Area Known To Be High Risk For COVID-19? No [email or web address] Information not available 01/04/2021 Are You Deaf Or Do You Have Serious Difficulty Hearing? No [email or web address] Information not available 01/04/2021 What Type Of Diet Are You Following? REGULAR [email or web address] Information n ot available 01/04/2021 Have You Ever Been Counseled For Unhealthy Alcohol Use? No [email or web address] Information not available 01/04/2021 Do You Use Your Seat Belt Or Car Seat Routinely? Yes [email or web address] Information not available 01/04/2021 Are You Sexually Active? Yes [email or web address] Information not available 03/24/2024 Do You Have Smoke And Carbon Monoxide Detectors In Your Home? Yes Information not available 01/04/2021 Do You Use Sunscreen Routinely? Yes [email or web address] Information not available 01/04/2021 Has Tobacco Cessation Counseling Been Provided? No [email or web address] Information not available 01/04/2021 Do You Have Difficulty Walking Or Climbing Stairs? No [email or web address] Information not available 03/24/2024 Sex: Unknown Functional Status Question Answer Note LastModified by Organizat ion Details LastModified Time Do you use any illicit or recreational drugs? No [email or web address] Information not available 01/04/2021 Do you or have you ever used any other forms of tobacco or nicotine? No [email or web address] Information not available 01/04/2021 What is your level of alcohol consumption? Occasional [email or web address] Information not available 01/04/2021 Are you able to walk independently without assistance or assistive devices? YESWOREST [email or web address] Information not available 01/04/2021 Are you able to care for yourself independently? Yes [email or web address] Information not available 03/24/2024 Do you have difficulty dressing, bathing, grooming, or toileting? No Information not available 03/24/2024 What is your exercise level? Occasional [email or web address] Information not available 01/04/2021 Mental Status Question Answer Note LastModified by Organization D etails LastModified Time Do you feel stressed (tense, restless, nervous, or anxious, or unable to sleep at night)? [id number] [email or web address] Information not available 01/04/2021 Family History Relationship Description Onset Age of this Age Resolved Age Notes LastModified by Organization Details LastModified Time Maternal Grandmother Diabetes mellitus [email or web address] Not available 01/03 17:50:54 Maternal Aunt Malignant neoplasm of breast 50 [email or web address] Not available 01/04 18:38:25 Maternal Grandfather Malignant neoplasm of colon 82 [email or web address] Not available 01/04 18:38:51 Medical History Condition [...] ICD10 Code Diagnosis IMO Codes Diagnosis Note [id number] Danette Mendoza CNM [place] [address] [address] 01/04/2021 11:25:32 01/06/2021 22:44:08 Gynecologic examination 02229502 Z01.419 [id number] MANUEL Winter [place] [address] [address] 07/07/2023 15:28:09 07/07/2023 16:36:15 Gynecologic examination 45223483 Z01.419 Take Calcium with Vitamin D 1200mg [...] paper copy of today's plan if desired. WWETTC, taking daily PNVwe discussed timed ICno hx of abnormal papspap updated todaySTI testing declineden couraged annual exam with PCP [id number] Isaias Ding MD [place] [address],[facility] [place] [address] 10/16/2023 11:56:48 10/16/2023 12:36:59 [id number] LUAN MCKEON MD [place] [address],[facility] [place] [address] 10/16/2023 11:57:40 10/20/2023 08:56:47 test positive 123094453 Z32.01 1. Exam today within normal limits.2. Ultrasound today confirms GA and viability. EDC . GC/Clamydi a testing done: will f/u as indicated. 4. ACOG guidelines and plan of care for reviewed with patient. All questions answered.5 . Return to office at 12 weeks for new OB visit6. Will need new OB labs at next visit.7. Genetic screening: desires. [id number] LUAN MCKEON MD [place] [address],[facility] [place] [address] 11/18/2023 11:58:02 11/18/2023 13:06:47 screening 253903954 Z36.82 Z3A.12 [id number] LUAN MCKEON MD [place] [address] [address] 11/18/2023 11:59:48 11/19/2023 08:50:24 Routine care 560273711 Z34.01 [id number] MD Edward TRAORE [address] [address] 12/16/2023 11:02:32 12/16/2023 11:38:47 Routine care 192002693 Z34.01 [id number] Isaias Ding MD [place] [address] [address] 01/13/2024 14:50:40 01/13/2024 16:14:29 screening for malformation 388536144 Z36.3 Z3A.20 [id number] LUAN MCKEON MD [place] [address] [address] 01/13/2024 14:53:13 01/14/2024 08:45:16 Gestation period, 20 weeks 43548997 Z3A.20 Poor growth affecting management 608356709 O36.5999 [id number] LUAN MCKEON MD [place] [address] [address] 02/10/2024 16:43:43 02/15/2024 04:09:47 Routine care 056605219 Z34.01 [id number] Isaias Ding MD [place] [address] [address] 03/09/2024 14:57:51 03/09/2024 15:45:04 Medical examination for suspected condition 092154227 Z03.74 Z3A.28 [id number] MD Edward TRAORE [address],[place] [address] 03/09/2024 15:21:55 03/10/2024 06:22:24 Breech presentation 4017683 O32.1XX9 Gestation period, 28 weeks 30387618 Z3A.28 [id number] Isaias Ding MD [place] [address],[place] [address] 03/24/2024 14:41:03 03/24/2024 15:32:07 Routine care [id number] Z34.03 [id number] Isaias Ding MD [place] [address],[place] [address] 04/06/2024 15:19:24 04/06/2024 16:00:03 Medical examination for suspected condition [id number] Z03.74 Z3A.32 [id number] LUAN MCKEON MD [place] [address],[place] [address] 04/06/2024 15:19:49 04/06/2024 16:48:46 Routine care [id number] Z34.01 [id number] Isaias Ding MD [place] [address],[place] [address] 04/21/2024 13:51:16 04/21/2024 14:41:20 Routine care [id number] Z34.03 [id number] Isaias Ding MD [place] [address],[place] [address] 05/04/2024 10:35:09 05/04/2024 11:08:53 Medical examination for suspected condition 159138817 Z03.74 Z3A.36 [id number] LUAN MCKEON MD [place] [address],[place] [address] 05/04/2024 10:35:27 05/04/2024 11:57:11 Routine care 825105296 Z34.01 [id number] MD Edward [place] [address],[place] [address] 05/13/2024 09:33:23 05/16/2024 07:28:17 Elevated blood-pressure reading without diagnosis of hypertension 133101741 R03.0 Gestation period, 37 weeks 06127932 Z3A.37 [id number] MD Edward TRAORE [address],[place] [address] 05/17/2024 16:41:49 05/19/2024 09:31:47 Routine care 189200969 Z34.01 [id number] LUAN MCKEON MD [place] [address],[place] [address] 05/24/2024 12:17:24 05/24/2024 14:20:43 -induced hypertension 49402389 O13.9 Gestation period, 39 weeks 56114392 Z3A.39 [id number] LUAN MCKEON MD [place] [address],[place] [address] 06/24/2024 12:36:04 06/24/2024 14:46:13 care 031715342 Z39.2 S/p 4 weeks ago here today for a visit.1. Patient recovering well2. Plans to continue combo feeding for now, considerin g weaning pumping, discussed techniques 3. Interested in Slynd for contracept ion at this time. Risks, benefits, and alternativ es reviewed with the patient4. Patient instructed to follow up in 6-12 months for well woman exam unless need arises prior [id number] MANUEL Winter [place] [address],[place] [address] 12/06/2024 09:37:23 12/06/2024 15:09:42 Vulval irritation 610505174 N90.89 we discussed vulvar care guidelines , avoiding irritants/ avoid shaving/wa priscilla until symptoms resolvewar m compress to areadeclin ed STI/vagini tis panelto notify the office if symptoms continue, precaution s discussed Time spent in visit is a total of 18 mins with at least 50% of visit consisting of counseling and review of plan of care. [id number] LUAN MCKEON MD [place] [address],[place] [address] 07/10/2025 15:56:03 07/10/2025 16:25:50 Threatened miscarriage 32151828 O20.0 Z3A.01 14201 [id number] LUAN MCKEON MD [place] [address],[place] [address] 07/18/2025 17:11:39 07/18/2025 17:55:30 test positive 325215169 Z32.01 [id number] 1. Exam today within normal limits.2. Ultrasound today confirms GA and viability. EDC . GC/Clamydi a testing done: will f/u as indicated. 4. ACOG guidelines and plan of care for reviewed with patient. All questions answered.5 . Return to office at 12 weeks for new OB visit6. Will need new OB labs at next visit.7. Genetic screening: desires at 10 weeks. screening 2437 10678 Z36.0 [id number] LUAN MCKEON MD [place] [address],[place] [address] 08/09/2025 16:22:26 08/09/2025 16:58:31 screening 743482037 Z36.82 Z3A.12 080608 [id number] LUAN MCKEON MD [place] [address],[place] [address] 08/09/2025 16:23:30 08/10/2025 14:24:12 state of fetus 00166406 Z34.90 [id number] Past pregn erick history of gestational hypertension 873198152 Z87.59 07354871 [id number] LUAN MCKEON MD [place] [address],[place] [address] 09/06/2025 16:12:16 09/06/2025 17:12:04 Past history of gestational hypertension 717062087 Z87.59 85197985 Gestation period, 16 weeks 85005503 Z3A.16 [id number] Health Concerns Section Related Observation LastModified by Organization Detai ls LastModified Time None Recorded Concern Status LastModified by Organization Details LastModified Time None Recorded Advance Directives Directive None Recorded Payers Insurance Date Sequence Insurance Name Policy Number Policy Bailey Covered Member ID Bailey Member ID Guarantor Name 09/03/2025 1 [employer] (POS II) [id number] Beata Martinez [id number] Beata Martinez 11/15/2024 PAYMENT PLAN Beata Martinez 07/07/2023 1 [employer] [facility] - THE CITIZ[place] WORKER (PPO) Vanessa Martinez [id number] Beata Martinez Notes Date Note Type Note [...] . LUAN MCKEON MD [address], [place], [address], [facility] 07/18/2025 17:53:01 09/06/2025 text/html Generic HPI TemplateReported by Patient LUAN MCKEON MD [address], [place], [address], [facility] 09/06/2025 17:08:36 OBGyn Episode Ob Episode Information Episode Created Date Number of Fetuses Patient Bloodtype Patient rh Status Prepregnancy Weight lbs Domestic Partner Domestic Partner Phone Father Name Power Generation Technician Status 08/09/20 25 1 A Positive Juan Diego OPEN Fetus Data First Name Last Name Admitted to NICU Weight (g) Sex Living Outcome Pediatric Complications Fetus ID Race Codes Race Delivery Type [id number] Problems Problem Notes Problem Name Start Date End Date Resolution Snomed Code Not e Past history of gestational hypertension 08/10/2025 [id number] bAS A ppx Artem Calculation Initial Artem [...] Weight in lbs Pre/Post Dialysis Refused Weight 161.793552188747 BP Diastolic BP Location Tested BP Systolic [...] Weight in lbs Pre/Post Dialysis Refused Weight 164.785303279164 BP Diastolic BP Location Tested BP Systolic [...] Domestic Partner Domestic Partner Phone Father Name Power Generation Technician Status 11/18/19 24 1 A Positive CLOSED Fetus Data First Name Last Name Admitted to NICU Weight (g) Sex Living Outcome Pediatric Complications Fetus ID Race Codes Race Delivery Type 3033.39 65 M true Full Term 30706 Vaginal Delivery Problems Problem Notes Level II US 01/21 230 Problem Name Start Date End Date Resolution Snomed Code Not e Small for gestational age fetus SELFRESOLVED [id number] [facility] referral fa xed 01/12 [facility]- scheduled 01-21 230 Level II US only [facility] Artem Calculation Initial Artem Date Initial Exam [...] Date Ultra Sound Latest Days Gestation 0 [email or web address] 05/24/2024 05/30/20 24 0 Pre- Flowsheet Flowsheet [...] Weight in lbs Pre/Post Dialysis Refused Weight 161.939243838508 BP Diastolic BP Location Tested BP Systolic BP Type 81 131 Fetus Heart Rate Present A 165 Fetus Movement Comments Presents to establish prenat mo care. PMH/PSH unremarkable. uncomplicated thus far. Having some congestion, discussed safe meds. Nausea improved. No bleeding or cramping. NIPT LR male, NT/NB wnl. RTC 4 weeks. Flowsheet Date 12/16/2023 Bauer Score Blood Edema Fundus Height Fundus Units Glucose Ketones Leukocytes Nitrite Labor Signs Protein Cervic Dilation Cervic Effacement Cervic Station 16 Type Weight in lbs Pre/Post Dialysis Refused Weight 163.777803457978 BP Diastolic BP Location Tested BP Systolic BP Type 83 L arm 130 sitting Fetus Heart Rate Present A 135 Fetus Movement A No Comments Doing well, nausea improved. No cramping or bleeding. No movement yet. Going to [facility] in December! RTC 4 weeks for anatomy [...] Weight in lbs Pre/Post Dialysis Refused Weight 162.654652967750 BP Diastolic BP Location Tested BP Systolic BP Type 80 130 Fetus Heart Rate Present Fetus Movement A Yes Comments Doing well, good movem ent. No crmaping or bleeding. Had fun in [place]! Anatomy US today, all structures normal. EFW 13%, FL 10%. Discussed that this may be a normal variant. Discussed repeat in 4 weeks vs referral to [facility] for confirmatory scan. Patient would like reassurance with [facility] consult, will send today. RTC 4 weeks Flowsheet Date 02/10/2024 Bauer Score Blood Edema Fundus Height Fundus Units Glucose Ketones Leukocytes Nitrite Labor Signs Protein Cervic Dilation Cervic Effacement Cervic Station Type Weight in lbs Pre/Post Dialysis Refused Weight 170.77923591772 BP Diastolic BP Location Tested BP Systolic [...] Weight in lbs Pre/Post Dialysis Refused Weight 172.361401540304 BP Diastolic BP Location Tested BP Systolic [...] Weight in lbs Pre/Post Dialysis Refused Weight 176.224138727378 BP Diastolic BP Location Tested BP Systolic [...] Weight in lbs Pre/Post Dialysis Refused Weight 178.603771015385 BP Diastolic BP Location Tested BP Systolic [...] Weight in lbs Pre/Post Dialysis Refused Weight 182.054580838713 BP Diastolic BP Location Tested BP Systolic [...] Weight in lbs Pre/Post Dialysis Refused Weight 184.026532476543 BP Diastolic BP Location Tested BP Systolic [...] Weight in lbs Pre/Post Dialysis Refused Weight 186.567422170240 BP Diastolic BP Location Tested BP Systolic [...] Weight in lbs Pre/Post Dialysis Refused Weight 189.879237158778 BP Diastolic BP Location Tested BP Systolic [...] Weight in lbs Pre/Post Dialysis Refused Weight 188.636590332395 BP Diastolic BP Location Tested BP Systolic [...] Estim ated Date of Delivery false Thalassemia (Tristanian, Guyanese, Mediterranean, Or Background): MCV < 80 false Neural Tube Defect (Meningomyelocele, Spina Bifi da, Or Anencephaly) false Congenital Heart Defect false Down Syndrome false Neri-Sachs (eg, Uatsdin, Cajun, Turkmen-Chilean) f alse Pedro Disease false Sickle Cell Disease Or Trait () false Hemophilia Or Other Blood Disorders false Muscular Dystrophy false Cystic Fibrosis false Cortland's Chorea false Intellectual Disability/Autism false If Yes, [...] Sterilization Discharge Date Comments 4 Induce d [facility]- idural 39.2 false Luan Mckeon MD Small for gestation al age fetus Discharge Information Feeding Method Contraceptive Method Maternal HG B and HCT Levels
--- OUTSIDE RECORDS SUMMARY | 2025-09-21 01:57 | XMS_ITS | Clinical Summary ---
Author Organization [facility] Address [address] [place] [address] Care Team Providers Care Woven Wood Shade Assembler Name Role Phone Unavailable Primary Care Provider Unavailabl e Source Comments [facility],non-owned Affiliates and Associated Physician Practices is amultiple site organization consisting of ambulatory clinics and hospital sitesin [place], [place], [place] and [place]. This disclosure is being madepursuant to the Care Everywhere program and may not contain all information available regarding this patient. 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
--- OUTSIDE RECORDS SUMMARY | 2025-09-21 01:57 | XMS_ITS | Encounter Summary ---
Author Organization [facility] Address [address] [place] [address] Care Team Providers Care Gravity Prospecting Observer Helper Name Role Phone Ximena Lopes MD Primary Care Provider [phone] Encounter Details Date Type Department Care Team (Late st Contact Info) Description 06/18/2013 [facility] Outpatient Visit CG DEFAULT [address] [place] [address] Unknown, Provider Social History Tobacco Use Types Packs/Day Years Used Date Smoking Tobacco: Never Alcohol Use Standard Drinks/Week Comments Not Asked 0 (1 standard drink = 0.6 oz pur e alcohol) Comments No Sex and Gender Information Value Date Recorded Sex Assigned at Not on file 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
--- OUTSIDE RECORDS SUMMARY | 2025-09-21 01:57 | XMS_ITS | Continuity of Care Document ---
Author Organization [facility] Address [address] [place] [address] Care Team Providers Care Product Development Worker Name Role Phone DIONI VERNON Primary Care [...] PCR Negati ve negati ve Not Available [facility] (Lab) [address], [place], [address], 08/11/2025 01:24:58 08/09/2008/09/2025 CT/GC AND TRICH OMONA S VAGIN CONSTANCE (RRNA ), URINE neisseria gonorrhoeae, PCR Negati ve negati ve Not Available [facility] (Lab) [address] [place], [address], 08/11/2025 01:24:58 08/09/2008/09/2025 CT/GC AND TRICH OMONA S VAGIN CONSTANCE (RRNA ), URINE trichomonas vaginalis ribosomal RNA (rrna) Negati ve negati ve 49_CL _SOUR CETVG : Urine - Bladd er Not Available [facility] (Lab) [address], [place], [address], 08/11/2025 01:24:58 08/09/2008/09/2025 CULTU RE: URINE result report SEE RESULT S BELOW Test: Cultu re: Urine Speci men Sourc e: Urine - Clean Catch Speci men Type: Urine Speci men Date: 2024 1633 Resul t Date: 08/11 0021 Resul t Statu s: Final resul t Abnor mal: No Resul ting Lab: [facility] [address] [address] Tel: CULTU RE ----- ----- ----- --- Cultu re resul t (>=3 organ isms prese nt) indic ates possi ble conta minat ion. Repea t cultu re if sympt oms indic ate. Not Available [facility] (Lab) [address], [place], [address], 08/11/2025 01:25:00 08/09/2008/09/2025 US, obste tric, nucha l trans lucen cy No observ ation record ed. [facility] [address], [place], [address], 08/09/2025 17:34:54 08/09/2008/09/2025 US, obste tric, nucha l trans lucen cy No observ ation record ed. [email or web address] [address], [place], [address], 08/11/2025 01:38:49 09/14/20 25 09/14/2025 US, doppl er, venou s No observ ation record ed. [place] [id number] [facility] [address], [place], [address], 09/15/2025 13:32:39 09/14/20 25 09/14/2025 US, doppl er, venou s No observ ation record ed. [email or web address] [address] [facility] [address], [place], [address], 09/14/2025 20:55:33 09/14/20 25 09/14/2025 imagi ng/di agnos tic resul t No observ ation record ed. [place] [id number] [facility] [address] [place], [address], 09/15/2025 13:32:40 Result Notes None recorded. Problems Name Problem SNOMED Code Status Onset Date Resolution Date Notes Provider Name and Address Organization Details Recorded Time Small for gestatio nal age fetus 964768080 Completed MFM referral faxed 01/12 [facility]- schedule d 01-21 230 Level II US only [facility] LUAN MCKEON MD [address], [place], [address], [facility] 4 14:19:39 Uses combined oral contrace ption 528017237 Completed 201601/04/2021 Encounte r for initial prescrip tion of contrace ptive pills;Re corded Elsewher e: No Locat ion: [facility] S ource: EHR Magnetic Resonance Technologist wiley: N Practi ce ID: [email or web address] Rafiq lable Time: 01:45:00 PM Dona noe, [facility] 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 11:37:49 Screenin g for malignan t neoplasm of cervix Completed 201701/04/2021 Encounte r for screenin g for malignan t neoplasm of cervix;R ecorded Elsewher e: No Locat ion: [facility] S ource: EHR Magnetic Resonance Technologist wiley: N Shelby ce ID: [id number] Rafiq lable Time: 09:00:00 AM Dona Hancock [facility] 11:37:[address] Concept Completed 201801/04/2021 Encntr for routine child health exam w/o abnormal findings ;Recorde d Elsewher e: No Locat ion: [facility] S ource: EHR Magnetic Resonance Technologist wiley: N Shelby ce ID: [id number] Rafiq lable Time: 08:15:00 AM Dona Hancock null, [facility] 11:37:47 Pregnanc y 30477880 Completed 202305/27/2024 Kenna Sawyer [facility] 17:05:02 Pregnanc y 53973003 Active 2024 Kenna Sawyer [facility] 5 17:05:02 Past pregnanc y history of gestatio nal hyperten eulogio 873563923 Active 2024 bASA ppx LUAN MCKEON MD [address], [place], [address], [place] [facility] 14:00:08 Notes:MFM referral [facility] faxed 01/12 [facility] Problem Notes None recorded. Procedures Surgical History Date Name Laterality Status Provider Name and Address Organization Details Recorded Time 3 Date of Last Pap Smear completed Anne Gonzalez [facility] 03/24/2024 14:59:37 6 extraction of wisdom tooth completed Dona Hancock [facility] 01/04/2021 11:39:26 Imaging Results None recorded. Procedure Notes None recorded. Medical Equipment None Reported. Allergies Allergen ID Allergen Name Allergen Category Reaction Reaction Severity Criticality Documentation Date Start Date Code Code System Note Provider Name and Address Organization Details Recorded Time 72019 Product containin g penicilli n (product) medicatio n Not available Not available Not available 10/19/2020 42760 8001 SNOMED Comme nt: [facility]; Not Available [facility] 14:17:57 Medications Name Sig Start Date Stop [...] Caren e: No Locat ion: Nora howell [facility] M odify By: yeni cee DateTime : 02/21/20 [...] Updated DateTime 09/06/2025 160.02 cm 29.1 kg/m2 70526.15 g 135/79 mm[Hg] Kenna Sawyer [facility] 09/06/2025 16:28:01 Social History Question Answer Notes LastModified by Organizat ion Details LastModified Time Tobacco Smoking Status Never Smoker Dona Hancock null, [facility] 01/04/2021 11:39:12 If You Are , What Was Your Level Of Alcohol Consumption Prior To ? None [email or web address] Information not available 01/04/2021 Are You Blind Or Do You Have Difficulty Seeing? No Information n ot available 01/04/2021 What Is Your Level Of Caffeine Consumption? Moderate [email or web address] Information not available 01/04/2021 In The 14 Days Before Symptom Onset, Have You Had Close Contact With A Laboratory-confirm ed COVID-19 While That Case Was Ill? No [email or web address] Information n ot available 01/04/2021 In The 14 Days Before Symptom Onset, Have You Had Close Contact With A Person Who Is Under Investigation For COVID-19 While That Person Was Ill? No [email or web address] Information not available 01/04/2021 Have You Been To An Area Known To Be High Risk For COVID-19? No [email or web address] Information not available 01/04/2021 Are You Deaf Or Do You Have Serious Difficulty Hearing? No [email or web address] Information not available 01/04/2021 What Type Of Diet Are You Following? REGULAR [email or web address] Information n ot available 01/04/2021 Have You Ever Been Counseled For Unhealthy Alcohol Use? No [email or web address] Information not available 01/04/2021 Do You Use Your Seat Belt Or Car Seat Routinely? Yes [email or web address] Information not available 01/04/2021 Are You Sexually Active? Yes [email or web address] Information not available 03/24/2024 Do You Have Smoke And Carbon Monoxide Detectors In Your Home? Yes Information not available 01/04/2021 Do You Use Sunscreen Routinely? Yes [email or web address] Information not available 01/04/2021 Has Tobacco Cessation Counseling Been Provided? No [email or web address] Information not available 01/04/2021 Do You Have Difficulty Walking Or Climbing Stairs? No [email or web address] Information not available 03/24/2024 Sex: Unknown Functional Status Question Answer Note LastModified by Organizat ion Details LastModified Time Do you use any illicit or recreational drugs? No [email or web address] Information not available 01/04/2021 Do you or have you ever used any other forms of tobacco or nicotine? No Information not available 01/04/2021 What is your level of alcohol consumption? Occasional [email or web address] Information not available 01/04/2021 Are you able to walk independently without assistance or assistive devices? YESWOREST [email or web address] Information not available 01/04/2021 Are you able to care for yourself independently? Yes [email or web address] Information not available 03/24/2024 Do you have difficulty dressing, bathing, grooming, or toileting? No Information not available 03/24/2024 What is your exercise level? Occasional [email or web address] Information not available 01/04/2021 Mental Status Question Answer Note LastModified by Organization D etails LastModified Time Do you feel stressed (tense, restless, nervous, or anxious, or unable to sleep at night)? [id number] [email or web address] Information not available 01/04/2021 Family History Relationship Description Onset Age of this Age Resolved Age Notes LastModified by Organization Details LastModified Time Maternal Grandmother Diabetes mellitus [email or web address] Not available 01/03 17:50:54 Maternal Aunt Malignant neoplasm of breast 50 [email or web address] Not available 01/04 18:38:25 Maternal Grandfather Malignant neoplasm of colon 82 [email or web address] Not available 01/04 18:38:51 Medical History Condition [...] ICD10 Code Diagnosis IMO Codes Diagnosis Note [id number] LUAN MCKEON MD [place] [address] [address] 08/09/2025 16:22:26 08/09/2025 16:58:31 screening 118615773 Z36.82 Z3A.12 787179 [id number] LUAN MCKEON MD [place] [address] [address] 08/09/2025 16:23:30 08/10/2025 14:24:12 state of fetus 92308552 Z34.90 6683179580 Past pregn erick history of gestational hypertension 018289361 Z87.59 12968788 [id number] LUAN MCKEON MD [place] [address],[place] [address] 09/06/2025 16:12:16 09/06/2025 17:12:04 Past history of gestational hypertension 525190572 Z87.59 80050460 Gestation period, 16 weeks 40414737 Z3A.16 8423250 Health Concerns Section Related Observation LastModified by Organization Detai ls LastModified Time None Recorded Concern Status LastModified by Organization Details LastModified Time None Recorded Payers Encounter Date Sequence Insurance Name Policy Number Policy Bailey Covered Member ID Bailey Member ID Guarantor Name 09/06/2025 1 [employer] (POS II) [id number] Beata Martinez [id number] Beata Martinez Notes Date Note Type Note Provider Name and Address Organization Details Recorded Time 09/06/2025 text/html Generic HPI TemplateReported by Patient LUAN MCKEON MD [address], [place], [address], [facility] 09/06/2025 17:08:36 OBGyn Episode Ob Episode Information Episode Created Date Number of Fetuses Patient Bloodtype Patient rh Status Prepregnancy Weight lbs Domestic Partner Domestic Partner Phone Father Name Licensed And Certified Midwife Status 08/09/20 25 1 A Positive Juan Diego OPEN Fetus Data First Name Last Name Admitted to NICU Weight (g) Sex Living Outcome Pediatric Complications Fetus ID Race Codes Race Delivery Type 79258 Problems Problem Notes Problem Name Start Date End Date Resolution Snomed Code Not e Past history of gestational hypertension 08/10/2025 [id number] bAS A ppx Artem Calculation Initial Artem [...] Weight in lbs Pre/Post Dialysis Refused Weight 161.953174748223 BP Diastolic BP Location Tested BP Systolic BP Type 84 L arm 137 sitting Fetus Heart Rate Present A Present Fetus Movement Comments Patient presents to [facility] care. Hx of gestational HTN, discussed bASA ppx. otherwise uncomplicated. No nausea or cramping. NT/NB wnl today. LR female NIPT! Other OB labs wnl. RTC 4 weeks for routine care. Flowsheet Date 09/06/2025 Bauer Score Blood Edema Fundus Height Fundus Units Glucose Ketones Leukocytes Nitrite Labor Signs Protein Cervic Dilation Cervic Effacement Cervic Station Type Weight in lbs Pre/Post Dialysis Refused Weight 164.851066174651 BP Diastolic BP Location Tested BP Systolic [...]
--- OUTSIDE RECORDS SUMMARY | 2025-09-21 01:57 | XMS_ITS | Continuity of Care Document ---
Author Organization [facility] Address [address] [place] [address] [place] [address] Care Team Providers Care Lpn Cma Name Role Phone DIONI VERNON Primary Care Provider [phone] Assessment No assessment recorded. Plan of Treatment [...] RNA, unspeci fied specime n 2024 025 [facility] (Lab), [address] [place], [address], 08/11/2025 01:24:59 culture , urine 2024 025 [facility] (Lab), [address] [place], [address], 08/11/2025 01:25:00 drug screen, urine 2024 025 [facility], [address], [address], [place], [address], 08/11/2025 01:38:04 Referral None recorde d. Procedures [...] PCR Negati ve negati ve Not Available [facility] (Lab) [address] [facility], [place], [address], 08/11/2025 01:24:58 08/09/2008/09/2025 CT/GC AND TRICH OMONA S VAGIN CONSTANCE (RRNA ), URINE neisseria gonorrhoeae, PCR Negati ve negati ve Not Available [facility] (Lab) [address] [facility], [place], [address], 08/11/2025 01:24:58 08/09/2008/09/2025 CT/GC AND TRICH OMONA S VAGIN CONSTANCE (RRNA ), URINE trichomonas vaginalis ribosomal RNA (rrna) Negati ve negati ve 49_CL _SOUR CETVG : Urine - Bladd er Not Available [facility] (Lab) [address] [facility] [facility], [place], [address], 08/11/2025 01:24:58 08/09/2008/09/2025 CULTU RE: URINE result report SEE RESULT S BELOW Test: Cultu re: Urine Speci men Sourc e: Urine - Clean Catch Speci men Type: Urine Speci men Date: 2024 1633 Resul t Date: 08/11 0021 Resul t Statu s: Final resul t Abnor mal: No Resul ting Lab: [facility] [address] [facility] [address] Tel: CULTU RE ----- ----- ----- --- Cultu re resul t (>=3 organ isms prese nt) indic ates possi ble conta minat ion. Repea t cultu re if sympt oms indic ate. Not Available [facility] (Lab) [address], [place], [address], 08/11/2025 01:25:00 08/09/20 25 08/09/2025 US, obste tric, nucha l trans lucen cy No observ ation record ed. [facility] [address], [place], [address], 08/09/2025 17:34:54 08/09/20 25 08/09/2025 US, obste tric, nucha l trans lucen cy No observ ation record ed. [facility] [address], [place], [address], 08/11/2025 01:38:49 09/14/20 25 09/14/2025 US, doppl er, venou s No observ ation record ed. [address] [address], [place], [address], 09/15/2025 13:32:39 09/14/20 25 09/14/2025 US, doppl er, venou s No observ ation record ed. [address] [address], [place], [address], 09/14/2025 20:55:33 09/14/20 25 09/14/2025 imagi ng/di agnos tic resul t No observ ation record ed. [address] [address], [place], [address], 09/15/2025 13:32:40 Result Notes None recorded. Problems Name Problem SNOMED Code Status Onset Date Resolution Date Notes Provider Name and Address Organization Details Recorded Time Small for gestatio nal age fetus 491024081 Completed MFM referral faxed 01/12 SS [facility]FM- schedule d 01-21 230 Level II US only [facility] LUAN MCKEON MD [address], [place], [address], [place] [facility] 07/23/202 4 14:19:39 Uses combined oral contrace ption 636276921 Completed 201601/04/2021 Encounte r for initial prescrip tion of contrace ptive pills;Re corded Elsewher e: No Locat ion: Delmiscarmen dante [facility] S ource: [employer] Mdm Architect wiley: N Juanpabloti ce ID: [id number] Rafiq lable Time: 01:45:00 PM Dona Hancock [facility] 11:37:[address] Concept Completed 201701/04/2021 Encntr for tobacco sample puller exam (general ) (routine ) w/o abn findings ;Recorde d Elsewher e: No [facility] [employer] Mdm Architect wiley: N Juanpabloti ce ID: [id number] Rafiq lable Time: 09:00:00 AM Dona Hancock [facility] 11:37:49 Screenin g for malignan t neoplasm of cervix Completed 201701/04/2021 Encounte r for screenin g for malignan t neoplasm of cervix;R ecorded Elsewher e: No [facility] S ource: [employer] Mdm Architect wiley: N Juanpabloti ce ID: [id number] Rafiq lable Time: 09:00:00 AM Dona Hancock [facility] 11:37:[address] Concept Completed 201801/04/2021 Encntr for routine child health exam w/o abnormal findings ;Recorde d Elsewher e: No [facility]: [employer] Mdm Architect wiley: N Practi ce ID: [id number] Rafiq lable Time: 08:15:00 AM Dona Hancock [facility] 11:37:47 Pregnanc y 74132167 Completed 202305/27/2024 Kenna noe [facility] 5 17:05:02 Pregnanc y 89598668 Active 2024 Kenna noe, [facility] 5 17:05:02 Past pregnanc y history of gestatio nal hyperten eulogio 267052074 Active 2024 Sumit MCKEON MD [address], [place], [address], [facility] 5 14:00:08 Notes:[facility] referral [facility] faxed 01/12 SGA Problem Notes None recorded. Procedures Surgical History Date Name Laterality Status Provider Name and Address Organization Details Recorded Time 3 Date of Last Pap Smear completed Anne Gonzalez [facility] 03/24/2024 14:59:37 6 extraction of wisdom tooth completed Dona Hancock [facility] 01/04/2021 11:39:26 Imaging Results None recorded. Procedure Notes None recorded. Medical Equipment None Reported. Allergies Allergen ID Allergen Name Allergen Category Reaction Reaction Severity Criticality Documentation Date Start Date Code Code System Note Provider Name and Address Organization Details Recorded Time 86927 Product containin g penicilli n (product) medicatio n Not available Not available Not available 10/19/2020 59229 8001 SNOMED Comme nt: [facility]; [facility] Available [facility] 0 14:17:57 Medications Name Sig Start Date [...] Prescrib ed Elsewher e: No Locat ion: [facility] odify By: yeni cee DateTime : 02/21/20 [...] Updated DateTime 08/09/2025 160.02 cm 28.5 kg/m2 65798.37 g 137/84 mm[Hg] Kenna Sawyer [facility] 08/09/2025 17:03:52 Social History Question Answer Notes LastModified by Organizat ion Details LastModified Time Tobacco Smoking Status Never Smoker Dona noe, [facility] 01/04/2021 11:39:12 If You Are , What Was Your Level Of Alcohol Consumption Prior To ? None [email or web address] Information not available 01/04/2021 Are You Blind Or Do You Have Difficulty Seeing? No [email or web address] Information n ot available 01/04/2021 What Is Your Level Of Caffeine Consumption? Moderate [email or web address] Information not available 01/04/2021 In The 14 Days Before Symptom Onset, Have You Had Close Contact With A Laboratory-confirm ed COVID-19 While That Case Was Ill? No [email or web address] Information n ot available 01/04/2021 In The 14 Days Before Symptom Onset, Have You Had Close Contact With A Person Who Is Under Investigation For COVID-19 While That Person Was Ill? No Information not available 01/04/2021 Have You Been To An Area Known To Be High Risk For COVID-19? No [email or web address] Information not available 01/04/2021 Are You Deaf Or Do You Have Serious Difficulty Hearing? No [email or web address] Information not available 01/04/2021 What Type Of Diet Are You Following? REGULAR [email or web address] Information n ot available 01/04/2021 Have You Ever Been Counseled For Unhealthy Alcohol Use? No [email or web address] Information not available 01/04/2021 Do You Use Your Seat Belt Or Car Seat Routinely? Yes [email or web address] Information not available 01/04/2021 Are You Sexually Active? Yes Information not available 03/24/2024 Do You Have Smoke And Carbon Monoxide Detectors In Your Home? Yes [email or web address] Information not available 01/04/2021 Do You Use Sunscreen Routinely? Yes [email or web address] Information not available 01/04/2021 Has Tobacco Cessation Counseling Been Provided? No [email or web address] Information not available 01/04/2021 Do You Have Difficulty Walking Or Climbing Stairs? No [email or web address] Information not available 03/24/2024 Sex: Unknown Functional Status Question Answer Note LastModified by Organizat ion Details LastModified Time Do you use any illicit or recreational drugs? No [email or web address] Information not available 01/04/2021 Do you or have you ever used any other forms of tobacco or nicotine? No [email or web address] Information not available 01/04/2021 What is your level of alcohol consumption? Occasional [email or web address] Information not available 01/04/2021 Are you able to walk independently without assistance or assistive devices? YESWOREST [email or web address] Information not available 01/04/2021 Are you able to care for yourself independently? Yes [email or web address] Information not available 03/24/2024 Do you have difficulty dressing, bathing, grooming, or toileting? No [email or web address] Information not available 03/24/2024 What is your exercise level? Occasional [email or web address] Information not available 01/04/2021 Mental Status Question Answer Note LastModified by Organization D etails LastModified Time Do you feel stressed (tense, restless, nervous, or anxious, or unable to sleep at night)? [id number] [email or web address] Information not available 01/04/2021 Family History Relationship Description Onset Age of this Age Resolved Age Notes LastModified by Organization Details LastModified Time Maternal Grandmother Diabetes mellitus [email or web address] Not available 01/03 17:50:54 Maternal Aunt Malignant neoplasm of breast 50 [email or web address] Not available 01/04 18:38:25 Maternal Grandfather Malignant neoplasm of colon 82 [email or web address] Not available 01/04 18:38:51 Medical History Condition [...] ICD10 Code Diagnosis IMO Codes Diagnosis Note [id number] LUAN MCKEON MD [place] [address] [address] 07/10/2025 15:56:03 07/10/2025 16:25:50 Threatened miscarriage 88295364 O20.0 Z3A.01 48923 [id number] LUAN MCKEON MD [place] [address],[place] [address] 07/18/2025 17:11:39 07/18/2025 17:55:30 test positive 007256863 Z32.01 [id number] 1. Exam today within normal limits.2. Ultrasound today confirms GA and viability. EDC . GC/Clamydi a testing done: will f/u as indicated. 4. ACOG guidelines and plan of care for reviewed with patient. All questions answered.5 . Return to office at 12 weeks for new OB visit6. Will need new OB labs at next visit.7. Genetic screening: desires at 10 weeks. screening 2437 10419 Z36.0 [id number] LUAN MCKEON MD [facility] [address],[place] [address] 08/09/2025 16:22:26 08/09/2025 16:58:31 screening 379093377 Z36.82 Z3A.12 008211 [id number] LUAN MCKEON MD [place] [address],[place] [address] 08/09/2025 16:23:30 08/10/2025 14:24:12 state of fetus 13781386 Z34.90 4276927008 Past pregn erick history of gestational hypertension 014026666 Z87.59 [id number] Health Concerns Section Related Observation LastModified by Organization Detai ls LastModified Time None Recorded Concern Status LastModified by Organization Details LastModified Time None Recorded Payers Encounter Date Sequence Insurance Name Policy Number Policy Bailey Covered Member ID Bailey Member ID Guarantor Name 08/09/2025 1 [employer] (POS II) [id number] Beata Martinez [id number] Beata Martinez OBGyn Episode Ob Episode Information Episode Created Date Number of Fetuses Patient Bloodtype Patient rh Status Prepregnancy Weight lbs Domestic Partner Domestic Partner Phone Father Name Residential Sales Executive Status 08/09/20 25 1 A Positive Juan Diego OPEN Fetus Data First Name Last Name Admitted to NICU Weight (g) Sex Living Outcome Pediatric Complications Fetus ID Race Codes Race Delivery Type [id number] Problems Problem Notes Problem Name Start Date End Date Resolution Snomed Code Not e Past history of gestational hypertension 08/10/2025 [id number] bAS A ppx Artem Calculation Initial Artem [...] Weight in lbs Pre/Post Dialysis Refused Weight 161.540118385034 BP Diastolic BP Location Tested BP Systolic [...] Weight in lbs Pre/Post Dialysis Refused Weight 164.331181420457 BP Diastolic BP Location Tested BP Systolic [...]
--- OUTSIDE RECORDS SUMMARY | 2025-09-21 01:57 | XMS_ITS | Continuity of Care Document ---
Author Organization [facility] Address [address] [place] [address] Care Team Providers Care Veterinary Medicine Doctor Name Role Phone DIONI VERNON Primary Care [...] (ccf) DNA, materna l serum 2024 025 [facility], [address], [place], [address], 07/31/2025 21:14:58 HbA1c (hemogl obin A1c), blood [address] [facility] (Lab), [address], [place], [address], 07/27/2025 14:58:52 type + screen, blood [address] [facility] (Lab), [address], [place], [address], 07/27/2025 14:58:51 rubella igg Ab, titer, serum [address] [facility] (Lab), [address], [place], [address], 07/27/2025 14:58:52 CBC w/ auto diff [address] [facility] (Lab), [address], [place], [address], 07/27/2025 14:58:49 hepatit is C virus Ab, serum [address] [facility] (Lab), [address], [place], [address], 07/27/2025 14:58:51 HBsAg (hepati tis B surface Ag), serum [address] [facility] (Lab), [address], [place], [address], 07/27/2025 14:58:50 RPR (rapid plasma reagin) , serum [address] [facility] (Lab), [address], [place], [address], 07/27/2025 14:58:53 HIV 1+2 AB + HIV 1 p24 Ag, qualita tive immunoa ssay, serum [address] [facility] (Lab), [address], [place], [address], 07/27/2025 14:58:50 Referral None recorde d. Procedures [...] Not Available Aleksandra calhoun [address], [place], [address], 07/31/2025 21:14:58 07/31/20 25 07/31/2025 [UNIT Y] ANEUP LOIDY NIPT 22Q11.2 microdeletio n LOW RISK <1 in 10,000 normal Not Available [facility] [address], [place], [address], 07/31/2025 21:14:58 07/31/20 25 07/31/2025 [UNIT Y] ANEUP LOIDY NIPT sex chromosome aneuploidy NOT DETECT ED normal Not Available [facility] [address], [place], [address], 07/31/2025 21:14:58 07/31/20 25 07/31/2025 [UNIT Y] ANEUP LOIDY NIPT monosomy X LOW RISK <1 in 10,000 normal Not Available [facility] [address], [place], [address], 07/31/2025 21:14:58 07/31/20 25 07/31/2025 [UNIT Y] ANEUP LOIDY NIPT trisomy 13 LOW RISK <1 in 10,000 normal Not Available [facility] [address], [place], [address], 07/31/2025 21:14:58 07/31/20 25 07/31/2025 [UNIT Y] ANEUP LOIDY NIPT trisomy 18 LOW RISK <1 in 10,000 normal Not Available [facility] [address], [place], [address], 07/31/2025 21:14:58 07/31/20 25 07/31/2025 [UNIT Y] ANEUP LOIDY NIPT trisomy 21 LOW RISK <1 in 10,000 normal Not Available [facility] [address], [place], [address], 07/31/2025 21:14:58 07/31/20 25 07/31/2025 [UNIT Y] ANEUP LOIDY NIPT sex FEMALE normal Not Available [facility] [address], [place], [address], 07/31/2025 21:14:58 07/31/20 25 07/31/2025 [UNIT Y] ANEUP LOIDY NIPT gestation SINGLE TON normal Not Available [facility] [address], [place], [address], 07/31/2025 21:14:58 07/31/20 25 07/31/2025 [UNIT Y] ANEUP LOIDY NIPT for detailed report, see pdf See PDF normal Not Available [facility] [address], [place], [address], 07/31/2025 21:14:58 07/26/2007/26/2025 CBC W/DIF F WBC 9.4 10'3/ uL 3.5-10 .5 Not Available [facility] (Lab) [address], [place], [address], 07/27/2025 14:58:49 07/26/2007/26/2025 CBC W/DIF F RBC 4.60 10'6/ uL (based on docume nted legal sex) 3.80-5 .20 Not Available [facility] (Lab) [address], [place], [address], 07/27/2025 14:58:49 07/26/2007/26/2025 CBC W/DIF F HGB 13.7 g/dL (based on docume nted legal sex) 11.6-1 5.4 Not Available [facility] (Lab) [address], [place], [address], 07/27/2025 14:58:49 07/26/2007/26/2025 CBC W/DIF F HCT 42.3 % (based on docume nted legal sex) 34.0-4 5.0 Not Available [facility] (Lab) [address], [place], [address], 07/27/2025 14:58:49 07/26/20 25 07/26/2025 CBC W/DIF F MCV 92.0 fL 80.0-9 9.0 Not Available [facility] (Lab) [address], [place], [address], 07/27/2025 14:58:49 07/26/20 25 07/26/2025 CBC W/DIF F MCH 29.8 pg 27.0-3 4.0 Not Available [facility] (Lab) [address], [place], [address], 07/27/2025 14:58:49 07/26/20 25 07/26/2025 CBC W/DIF F MCHC 32.4 g/dL 32.0-3 5.5 Not Available [facility] (Lab) [address], [place], [address], 07/27/2025 14:58:49 07/26/2007/26/2025 CBC W/DIF F RDW 12.4 % 11.0-1 5.0 Not Available [facility] (Lab) [address], [place], [address], 07/27/2025 14:58:49 07/26/2007/26/2025 CBC W/DIF F plt 219 10'3/ uL 150-40 0 Not Available [facility] (Lab) [address], [place], [address], 07/27/2025 14:58:49 07/26/2007/26/2025 CBC W/DIF F MPV 11.9 fL 8.8-12 .1 Not Available [facility] (Lab) [address], [place], [address], 07/27/2025 14:58:49 07/26/2007/26/2025 CBC W/DIF F NRBC's 0.0 % 0.0 Not Available [facility] (Lab) [address], [place], [address], 07/27/2025 14:58:49 07/26/20 25 07/26/2025 CBC W/DIF F absolute NRBCs 0.0 10'3/ uL no refere nce range establ ished Not Available [facility] (Lab) [address], [place], [address], 07/27/2025 14:58:49 07/26/20 25 07/26/2025 CBC W/DIF F neutrophils 75.8 % 34.0-7 3.0 high Not Available [facility] (Lab) [address], [place], [address], 07/27/2025 14:58:49 07/26/20 25 07/26/2025 CBC W/DIF F lymphocytes 16.6 % 15.0-5 0.0 Not Available [facility] (Lab) [address], [place], [address], 07/27/2025 14:58:49 07/26/20 25 07/26/2025 CBC W/DIF F monocytes 5.6 % 1.0-15 .0 Not Available [facility] (Lab) [address] [place], [address], 07/27/2025 14:58:49 07/26/20 25 07/26/2025 CBC W/DIF F eosinophils 1.2 % 0.0-8. 0 Not Available [facility] (Lab) [address] [place], [address], 07/27/2025 14:58:49 07/26/20 25 07/26/2025 CBC W/DIF F basophils 0.5 % 0.0-2. 0 Not Available [facility] (Lab) [address] [place], [address], 07/27/2025 14:58:49 07/26/2007/26/2025 CBC W/DIF F immature granulocytes 0.3 % no define d refere nce range Immat ure Granu locyt es (IG) repre sents autom ated enume ratio n of Metam yeloc ytes, Myelo cytes and Promy elocy yanni when IG is < 5%. Blast s are not inclu ded in IG and repor mamadou separ ately if prese nt. Not Available [facility] (Lab) [address], [place], [address], 07/27/2025 14:58:49 07/26/2007/26/2025 CBC W/DIF F absolute neutrophils 7.1 10'3/ uL 1.5-8. 0 Not Available [facility] (Lab) [address], [place], [address], 07/27/2025 14:58:49 07/26/2007/26/2025 CBC W/DIF F absolute lymphocytes 1.6 10'3/ uL 1.0-4. 0 Not Available [facility] (Lab) [address], [place], [address], 07/27/2025 14:58:49 07/26/20 25 07/26/2025 CBC W/DIF F absolute monocytes 0.5 10'3/ uL 0.2-1. 0 Not Available [facility] (Lab) [address], [place], [address], 07/27/2025 14:58:49 07/26/2007/26/2025 CBC W/DIF F absolute eosinophils 0.1 10'3/ uL 0.0-0. 6 Not Available [facility] (Lab) [address] [place], [address], 07/27/2025 14:58:49 07/26/20 25 07/26/2025 CBC W/DIF F absolute basophils 0.1 10'3/ uL 0.0-0. 3 Not Available [facility] (Lab) [address], [place], [address], 07/27/2025 14:58:49 07/26/2007/26/2025 CBC W/DIF F absolute [...] bhand book. nm.or g/gen derx Not Available [facility] (Lab) [address], [place], [address], 07/27/2025 14:58:49 07/26/2007/26/2025 HIV 1/2 ANTIG EN/AN TIBOD Y, REFLE X CONFI RMATI ON HIV antigen/anti body Nonrea ctive nonrea ctive HIV-1 antig en and HIV-1 /HIV- 2 antib odies were not detec mamadou. No labor atory evide nce of HIV infec tion. Not Available [facility] (Lab) [address], [place], [address], 07/27/2025 14:58:50 07/26/2007/26/2025 HEPAT ITIS B SURFA CE ANTIG EN hepatitis B surface antigen Non-re active non-re active This assay was perfo rmed using [employer] ratio n reage nts and test kits. Value s obtai jennifer with other assay metho ds or kits canno t be used inter sanches eably . Not Available [facility] (Lab) [address], [place], [address], 07/27/2025 14:58:50 07/26/20 25 07/26/2025 HEPAT ITIS C ANTIB ESTEBAN SCREE N, REFLE X TO CONFI RMATI ON hepatitis C antibody Non-re active non-re active Antib odies to HCV Not Detec mamadou, does not exclu de the possi bilit y of expos ure to HCV. Not Available [facility] (Lab) [address], [place], [address], 07/27/2025 14:58:51 07/26/20 25 07/26/2025 TYPE/ RH/SC REEN ABO/Rh type A POS Not Available [facility] (Lab) [address], [place], [address], 07/27/2025 14:58:51 07/26/20 25 07/26/2025 TYPE/ RH/SC REEN antibody screen NEG Not Available [facility] (Lab) [address], [place], [address], 07/27/2025 14:58:51 07/26/20 25 07/26/2025 TYPE/ RH/SC REEN exp date 2024 23:59 Not Available [facility] (Lab) [address], [place], [address], 07/27/2025 14:58:51 07/26/20 25 07/26/2025 RUBEL LA IGG ANTIB ESTEBAN, QUANT rubella antibodies, IgG Reacti ve reacti ve Not Available [facility] (Lab) [address] [place], [address], 07/27/2025 14:58:52 07/26/20 25 07/26/2025 RUBEL LA IGG ANTIB ESTEBAN, QUANT rubella antibodies, IgG quant 19.3 IU/mL >=10 Non-r eacti ve (Non- Immun e) <10 IU/mL React farhad (Immu ne) > or = 10 IU/mL Not Available [facility] (Lab) [address], [place], [address], 07/27/2025 14:58:52 07/26/20 25 07/26/2025 HEMOG LOBIN [...] >8.0% Actio n sugge sted Not Available [facility] (Lab) [address], [place], [address], 07/27/2025 14:58:52 07/26/2007/26/2025 RPR SCREE N, REFLE X TITER /CONF IRMAT ION RPR qualitative Nonrea ctive nonrea ctive Not Available [facility] (Lab) [address], [place], [address], 07/27/2025 14:58:52 08/09/20 25 08/09/2025 US, obste tric, nucha l trans lucen cy No observ ation record ed. [facility] [address], [place], [address], 08/09/2025 17:34:54 08/09/2008/09/2025 US, obste tric, nucha l trans lucen cy No observ ation record ed. [email or web address] [facility] [address], [place], [address], 08/11/2025 01:38:49 09/14/20 25 09/14/2025 US, doppl er, venou s No observ ation record ed. [address], [place], [address], 09/15/2025 13:32:39 09/14/20 25 09/14/2025 US, doppl er, venou s No observ ation record ed. [address], [place], [address], 09/14/2025 20:55:33 09/14/20 25 09/14/2025 imagi ng/di agnos tic resul t No observ ation record ed. [facility] [address], [place], [address], 09/15/2025 13:32:40 Result Notes None recorded. Problems Name Problem SNOMED Code Status Onset Date Resolution Date Notes Provider Name and Address Organization Details Recorded Time Small for gestatio nal age fetus 133053024 Completed MFM referral faxed 01/12 [facility]- schedule d 01-21 230 Level II US only [facility] LUAN MCKEON MD [address], [place], [address], [place] [facility] 4 14:19:39 Uses combined oral contrace ption 916841255 Completed 201601/04/2021 Encounte r for initial prescrip tion of contrace ptive pills;Re corded Elsewher e: No Locat ion: [facility] S ource: EHR Marzipan Molder wiley: N Shelby ce ID: [id number] Rafiq lable Time: 01:45:00 PM Don[address] noe [facility] 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 11:37:49 Screenin g for malignan t neoplasm of cervix Completed 201701/04/2021 Encounte r for screenin g for malignan t neoplasm of cervix;R ecorded Elsewher e: No Locat ion: [facility] S ource: EHR Marzipan Molder wiley: N Juanpabloti ce ID: [id number] Rafiq lable Time: 09:00:00 AM Dona Hancock kusum [facility] 11:37:[address] Concept Completed 201801/04/2021 Encntr for routine child health exam w/o abnormal findings ;Recorde d Elsewher e: No Locat ion: [facility] S ource: EHR Marzipan Molder wiley: N Practi ce ID: [id number] Rafiq lable Time: 08:15:00 AM Dona Hancock [facility], [facility] 11:37:47 Pregnanc y 66364597 Completed 202305/27/2024 Kenna Handbebe [facility] 5 17:05:02 Pregnanc y 56604379 Active 2024 Kenna Silverio [facility] 5 17:05:02 Past pregnanc y history of gestatio nal hyperten eulogio 738079390 Active 2024 Sumit MCKEON MD [address], [place], [address], [facility] 5 14:00:08 Notes:[facility] referral [facility] 01/12 [facility] Problem Notes None recorded. Procedures Surgical History Date Name Laterality Status Provider Name and Address Organization Details Recorded Time 3 Date of Last Pap Smear completed Anne Gonzalez [facility] 03/24/2024 14:59:37 6 extraction of wisdom tooth completed Dona Hancock [facility] 01/04/2021 11:39:26 Imaging Results None recorded. Procedure Notes None recorded. Medical Equipment None Reported. Allergies Allergen ID Allergen Name Allergen Category Reaction Reaction Severity Criticality Documentation Date Start Date Code Code System Note Provider Name and Address Organization Details Recorded Time 41246 Product containin g penicilli n (product) medicatio n Not available Not available Not available 10/19/2020 62959 8001 SNOMED Comme nt: Locat ion: [facility]; Not Available [facility] 14:17:57 Medications Name Sig Start Date [...] Prescrib ed Elsewher e: No Locat ion: Nora howell [facility] odify By: yeni Encounte r DateTime : 02/21/20 01:45:00 PM Not [...] Not Available Not Available Not Avai lable Fe 24 1 mg-20 mcg (24)/75 mg [...] Updated DateTime 07/18/2025 160.02 cm 28 kg/m2 37489.59 g 137/85 mm[Hg] Kenna Sawyer [facility] 07/18/2025 17:20:48 Social History Question Answer Notes LastModified by Organizat ion Details LastModified Time Tobacco Smoking Status Never Smoker Dona Hancock [facility] 01/04/2021 11:39:12 If You Are , What Was Your Level Of Alcohol Consumption Prior To ? None [email or web address] Information not available 01/04/2021 Are You Blind Or Do You Have Difficulty Seeing? No [email or web address] Information n ot available 01/04/2021 What Is Your Level Of Caffeine Consumption? Moderate [email or web address] Information not available 01/04/2021 In The 14 Days Before Symptom Onset, Have You Had Close Contact With A Laboratory-confirm ed COVID-19 While That Case Was Ill? No [email or web address] Information n ot available 01/04/2021 In The 14 Days Before Symptom Onset, Have You Had Close Contact With A Person Who Is Under Investigation For COVID-19 While That Person Was Ill? No [email or web address] Information not available 01/04/2021 Have You Been To An Area Known To Be High Risk For COVID-19? No [email or web address] Information not available 01/04/2021 Are You Deaf Or Do You Have Serious Difficulty Hearing? No Information not available 01/04/2021 What Type Of Diet Are You Following? REGULAR [email or web address] Information n ot available 01/04/2021 Have You Ever Been Counseled For Unhealthy Alcohol Use? No [email or web address] Information not available 01/04/2021 Do You Use Your Seat Belt Or Car Seat Routinely? Yes Information not available 01/04/2021 Are You Sexually Active? Yes [email or web address] Information not available 03/24/2024 Do You Have Smoke And Carbon Monoxide Detectors In Your Home? Yes Information not available 01/04/2021 Do You Use Sunscreen Routinely? Yes [email or web address] Information not available 01/04/2021 Has Tobacco Cessation Counseling Been Provided? No [email or web address] Information not available 01/04/2021 Do You Have Difficulty Walking Or Climbing Stairs? No [email or web address] Information not available 03/24/2024 Sex: Unknown Functional Status Question Answer Note LastModified by Organizat ion Details LastModified Time Do you use any illicit or recreational drugs? No [email or web address] Information not available 01/04/2021 Do you or have you ever used any other forms of tobacco or nicotine? No [email or web address] Information not available 01/04/2021 What is your level of alcohol consumption? Occasional [email or web address] Information not available 01/04/2021 Are you able to walk independently without assistance or assistive devices? YESWOREST [email or web address] Information not available 01/04/2021 Are you able to care for yourself independently? Yes Information not available 03/24/2024 Do you have difficulty dressing, bathing, grooming, or toileting? No [email or web address] Information not available 03/24/2024 What is your exercise level? Occasional [email or web address] Information not available 01/04/2021 Mental Status Question Answer Note LastModified by Organization D etails LastModified Time Do you feel stressed (tense, restless, nervous, or anxious, or unable to sleep at night)? [id number] Information not available 01/04/2021 Family History Relationship Description Onset Age of this Age Resolved Age Notes LastModified by Organization Details LastModified Time Maternal Grandmother Diabetes mellitus Not available 01/03 17:50:54 Maternal Aunt Malignant neoplasm of breast 50 [email or web address] Not available 01/04 18:38:25 Maternal Grandfather Malignant neoplasm of colon 82 [email or web address] Not available 01/04 18:38:51 Medical History Condition [...] N Arthritis N Polyps N Infertility N History of abnormal pap N Acid Reflux (GERD) N Cancer N Varicosities N Stroke N [...] ICD10 Code Diagnosis IMO Codes Diagnosis Note [id number] LUAN MCKEON MD [place] [address] [address] 07/10/2025 15:56:03 07/10/2025 16:25:50 Threatened miscarriage 10159799 O20.0 Z3A.01 74416 [id number] LUAN MCKEON MD [place] [address] [address] 07/18/2025 17:11:39 07/18/2025 17:55:30 test positive [id number] Z32.01 [id number] 1. Exam today within normal limits.2. Ultrasound today confirms GA and viability. EDC . GC/Clamydi a testing done: will f/u as indicated. 4. ACOG guidelines and plan of care for reviewed with patient. All questions answered.5 . Return to office at 12 weeks for new OB visit6. Will need new OB labs at next visit.7. Genetic screening: desires at 10 weeks. screening 9781 07209 Z36.0 Health Concerns Section Related Observation LastModified by Organization Detai ls LastModified Time None Recorded Concern Status LastModified by Organization Details LastModified Time None Recorded Payers Encounter Date Sequence Insurance Name Policy Number Policy Bailey Covered Member ID Bailey Member ID Guarantor Name 07/18/2025 1 [employer] (POS II) [id number] Beata Martinez [id number] Beata Martinez OBGyn Episode Ob Episode Information Episode Created Date Number of Fetuses Patient Bloodtype Patient rh Status Prepregnancy Weight lbs Domestic Partner Domestic Partner Phone Father Name Clinical Education Manager Status 08/09/20 25 1 A Positive Juan Diego OPEN Fetus Data First Name Last Name Admitted to NICU Weight (g) Sex Living Outcome Pediatric Complications Fetus ID Race Codes Race Delivery Type [id number] Problems Problem Notes Problem Name Start Date End Date Resolution Snomed Code Not e Past history of gestational hypertension 08/10/2025 [id number] bAS A ppx Artem Calculation Initial Artem [...] Weight in lbs Pre/Post Dialysis Refused Weight 161.751854847476 BP Diastolic BP Location Tested BP Systolic [...] Weight in lbs Pre/Post Dialysis Refused Weight 164.808801477279 BP Diastolic BP Location Tested BP Systolic [...]
--- OUTSIDE RECORDS SUMMARY | 2025-09-21 01:57 | XMS_ITS | Continuity of Care Document ---
Author Organization [facility] [place] Address [address] [place] [address] [place] [address] Care Team Providers Care Weed Science Research Technician Name Role Phone VERNONDIONI Primary Care Provider [phone] Assessment No assessment recorded. Plan of Treatment [...] obstetr ic, nuchal translu cency 2024 025 [email or web address] [place] [facility] [address], [place], [address], 08/10/2025 15:56:52 Medication Orders None recorde d. Patient TargetsNo targets recorded. Patient InstructionsNo instructions recorded. Reason for Referral None Reported. Results Created Date Observation Date Name Description Value Unit Range Abnormal Flag Note LastModifiedBy Organization Detail LastModifiedTime 08/09/2008/09/2025 CT/GC AND TRICH OMONA S VAGIN CONSTANCE (RRNA ), URINE chlamydia trachomatis, PCR Negati ve negati ve Not Available [facility] (Lab) [address], [place], [address], 08/11/2025 01:24:58 08/09/2008/09/2025 CT/GC AND TRICH OMONA S VAGIN CONSTANCE (RRNA ), URINE neisseria gonorrhoeae, PCR Negati ve negati ve Not Available [facility] (Lab) [address], [place], [address], 08/11/2025 01:24:58 08/09/2008/09/2025 CT/GC AND TRICH OMONA S VAGIN CONSTANCE (RRNA ), URINE trichomonas vaginalis ribosomal RNA (rrna) Negati ve negati ve 49_CL _SOUR CETVG : Urine - Bladd er Not Available [facility] (Lab) [address], [place], [address], 08/11/2025 01:24:58 08/09/2008/09/2025 CULTU RE: URINE result report SEE RESULT S BELOW Test: Cultu re: Urine Speci men Sourc e: Urine - Clean Catch Speci men Type: Urine Speci men Date: 2024 1633 Resul t Date: 08/11 0021 Resul t Statu s: Final resul t Abnor mal: No Resul ting Lab: [facility] [address] [address] Tel: CULTU RE ----- ----- ----- --- Cultu re resul t (>=3 organ isms prese nt) indic ates possi ble conta minat ion. Repea t cultu re if sympt oms indic ate. Not Available [facility] (Lab) [address], [place], [address], 08/11/2025 01:25:00 08/09/2008/09/2025 US, obste tric, nucha l trans lucen cy No observ ation record ed. [facility] [address], [place], [address], 08/09/2025 17:34:54 08/09/2008/09/2025 US, obste tric, nucha l trans lucen cy No observ ation record ed. [email or web address] [address] [address], [place], [address], 08/11/2025 01:38:49 09/14/2009/14/2025 US, doppl er, venou s No observ ation record ed. [address] [address], [place], [address], 09/15/2025 13:32:39 09/14/20 25 09/14/2025 US, doppl er, venou s No observ ation record ed. [address] [address], [place], [address], 09/14/2025 20:55:33 09/14/20 25 09/14/2025 imagi ng/di agnos tic resul t No observ ation record ed. [address] [address], [place], [address], 09/15/2025 13:32:40 Result Notes None recorded. Problems Name Problem SNOMED Code Status Onset Date Resolution Date Notes Provider Name and Address Organization Details Recorded Time Small for gestatio nal age fetus 117773740 Completed MFM referral faxed 01/12 [facility] MFM- schedule d 01-21 230 Level [facility] [address], [place], [address], [facility] 4 14:19:39 Uses combined oral contrace ption 466045650 Completed 201601/04/2021 Encounte r for initial prescrip tion of contrace ptive pills;Re corded Elsewher e: No Locat ion: Nora howell [facility] S ource: EHR Mine Engineer wiley: N Practi ce ID: [id number] Rafiq lable Time: 01:45:00 PM Dona noe, [facility] 1 11:37:[address] Concept Completed 201701/04/2021 Encntr for chemistry technologist exam (general ) (routine ) w/o abn findings ;Recorde d Elsewher e: No Locat ion: [facility] S ource: EHR Mine Engineer wiley: N Practi ce ID: [id number] Rafiq lable Time: 09:00:00 AM Dona noe [facility] 11:37:49 Screenin g for malignan t neoplasm of cervix Completed 201701/04/2021 Encounte r for screenin g for malignan t neoplasm of cervix;R ecorded Elsewher e: No Locat ion: [facility] S ource: EHR Mine Engineer wiley: N Practi ce ID: [id number] Rafiq lable Time: 09:00:00 AM Dona noe, [facility] 11:37:[address] Concept Completed 201801/04/2021 Encntr for routine child health exam w/o abnormal findings ;Recorde d Elsewher e: No Locat ion: [facility] S ource: EHR Mine Engineer wiley: N Practi ce ID: [id number] Rafiq lable Time: 08:15:00 AM Dona noe, [facility] 11:37:47 Pregnanc y 41517200 Completed 202305/27/2024 Kenna noe, [facility] 17:05:02 Pregnanc y 94353964 Active 2024 Kenna noe, [facility] 17:05:02 Past pregnanc y history of gestatio nal hyperten eulogio 369139135 Active 2024 Sumit pproel MCKEON MD [address], [place], [address], [facility] 14:00:08 Notes:MFM referral [facility] faxed 01/12 [facility] Problem Notes None recorded. Procedures Surgical History Date Name Laterality Status Provider Name and Address Organization Details Recorded Time 3 Date of Last Pap Smear completed Annecortney Gonzalez [facility] 03/24/2024 14:59:37 6 extraction of wisdom tooth completed Dona Hancock [facility] 01/04/2021 11:39:26 Imaging Results None recorded. Procedure Notes None recorded. Medical Equipment None Reported. Allergies Allergen ID Allergen Name Allergen Category Reaction Reaction Severity Criticality Documentation Date Start Date Code Code System Note Provider Name and Address Organization Details Recorded Time 75254 Product containin g penicilli n (product) medicatio n Not available Not available Not available 10/19/2020 86939 8001 SNOMED Comme nt: [facility]at [facility]; Not Available [facility] 0 14:17:57 Medications Name Sig Start [...] BY TRANSDER MAL ROUTE FOR 9 DAYS 12/15 /2023 completed Not Available Not Available Not Available [...] Prescrib ed Caren e: No Locat ion: [facility] odify By: yeni cee DateTime : [...] Antigen Home Test kit REFER TO [employer] IONS INCLUDED IN PACKAGIN G 10/16 completed Not Available Not Available Not Available Vitals Date Recorded Body height Body mass index (BMI) Body weight Systolic And Diastolic Provider Name and Address Organization Details Last Updated DateTime 08/09/2025 160.02 cm 28.5 kg/m2 85438.37 g 137/84 mm[Hg] Kenna Sawyer [facility] 08/09/2025 17:03:52 Social History Question Answer Notes LastModified by Organizat ion Details LastModified Time Tobacco Smoking Status Never Smoker Dona noe, [facility] 01/04/2021 11:39:12 If You Are , What Was Your Level Of Alcohol Consumption Prior To ? None [email or web address] Information not available 01/04/2021 Are You Blind Or Do You Have Difficulty Seeing? No [email or web address] Information n ot available 01/04/2021 What Is Your Level Of Caffeine Consumption? Moderate [email or web address] Information not available 01/04/2021 In The 14 Days Before Symptom Onset, Have You Had Close Contact With A Laboratory-confirm ed COVID-19 While That Case Was Ill? No [email or web address] Information n ot available 01/04/2021 In The 14 Days Before Symptom Onset, Have You Had Close Contact With A Person Who Is Under Investigation For COVID-19 While That Person Was Ill? No [email or web address] Information not available 01/04/2021 Have You Been To An Area Known To Be High Risk For COVID-19? No Information not available 01/04/2021 Are You Deaf Or Do You Have Serious Difficulty Hearing? No [email or web address] Information not available 01/04/2021 What Type Of Diet Are You Following? REGULAR [email or web address] Information n ot available 01/04/2021 Have You Ever Been Counseled For Unhealthy Alcohol Use? No [email or web address] Information not available 01/04/2021 Do You Use Your Seat Belt Or Car Seat Routinely? Yes [email or web address] Information not available 01/04/2021 Are You Sexually Active? Yes Information not available 03/24/2024 Do You Have Smoke And Carbon Monoxide Detectors In Your Home? Yes [email or web address] Information not available 01/04/2021 Do You Use Sunscreen Routinely? Yes [email or web address] Information not available 01/04/2021 Has Tobacco Cessation Counseling Been Provided? No [email or web address] Information not available 01/04/2021 Do You Have Difficulty Walking Or Climbing Stairs? No [email or web address] Information not available 03/24/2024 Sex: Unknown Functional Status Question Answer Note LastModified by Organizat ion Details LastModified Time Do you use any illicit or recreational drugs? No [email or web address] Information not available 01/04/2021 Do you or have you ever used any other forms of tobacco or nicotine? No [email or web address] Information not available 01/04/2021 What is your level of alcohol consumption? Occasional [email or web address] Information not available 01/04/2021 Are you able to walk independently without assistance or assistive devices? YESWOREST [email or web address] Information not available 01/04/2021 Are you able to care for yourself independently? Yes [email or web address] Information not available 03/24/2024 Do you have difficulty dressing, bathing, grooming, or toileting? No [email or web address] Information not available 03/24/2024 What is your exercise level? Occasional [email or web address] Information not available 01/04/2021 Mental Status Question Answer Note LastModified by Organization D etails LastModified Time Do you feel stressed (tense, restless, nervous, or anxious, or unable to sleep at night)? [id number] [email or web address] Information not available 01/04/2021 Family History Relationship Description Onset Age of this Age Resolved Age Notes LastModified by Organization Details LastModified Time Maternal Grandmother Diabetes mellitus [email or web address] Not available 01/03 17:50:54 Maternal Aunt Malignant neoplasm of breast 50 [email or web address] Not available 01/04 18:38:25 Maternal Grandfather Malignant neoplasm of colon 82 [email or web address] Not available 01/04 18:38:51 Medical History Condition [...] ICD10 Code Diagnosis IMO Codes Diagnosis Note [id number] LUAN MCKEON MD [place] [address] [address] 07/10/2025 15:56:03 07/10/2025 16:25:50 Threatened miscarriage 41449089 O20.0 Z3A.01 [id number] MD Edward TRAORE [address] [address] 07/18/2025 17:11:39 07/18/2025 17:55:30 test positive 244005184 Z32.01 [id number] 1. Exam today within normal limits.2. Ultrasound today confirms GA and viability. EDC 4/21/263. GC/Roverto rodriguez testing done: will f/u as indicated. 4. ACOG guidelines and plan of care for reviewed with patient. All questions answered.5 . Return to office at 12 weeks for new OB visit6. Will need new OB labs at next visit.7. Genetic screening: desires at 10 weeks. screening 2437 51324 Z36.0 [id number] LUAN MCKEON MD [place] [address] [address] 08/09/2025 16:22:26 08/09/2025 16:58:31 screening 098176068 Z36.82 Z3A.12 [id number] LUAN MCKEON MD [place] [address] [address] 08/09/2025 16:23:30 08/10/2025 14:24:12 state of fetus 37378361 Z34.90 [id number] Past pregn erick history of gestational hypertension 728588765 Z87.59 [id number] Health Concerns Section Related Observation LastModified by Organization Detai ls LastModified Time None Recorded Concern Status LastModified by Organization Details LastModified Time None Recorded Payers Encounter Date Sequence Insurance Name Policy Number Policy Bailey Covered Member ID Bailey Member ID Guarantor Name 08/09/2025 1 [employer] (POS II) [id number] Beata Eleuterio Michelle [id number] Beata Martinez OBGyn Episode Ob Episode Information Episode Created Date Number of Fetuses Patient Bloodtype Patient rh Status Prepregnancy Weight lbs Domestic Partner Domestic Partner Phone Father Name Edge Bander Hand Status 08/09/20 25 1 A Positive Juan Diego OPEN Fetus Data First Name Last Name Admitted to NICU Weight (g) Sex Living Outcome Pediatric Complications Fetus ID Race Codes Race Delivery Type [id number] Problems Problem Notes Problem Name Start Date End Date Resolution Snomed Code Not e Past history of gestational hypertension 08/10/2025 [id number] bAS A ppx Artem Calculation Initial Artem [...] Weight in lbs Pre/Post Dialysis Refused Weight 161.845515306379 BP Diastolic BP Location Tested BP Systolic BP Type 84 L arm 137 sitting Fetus Heart Rate Present A Present Fetus Movement Comments Patient presents to [facility] care. Hx of gestational HTN, discussed bASA ppx. otherwise uncomplicated. No nausea or cramping. NT/NB wnl today. LR female NIPT! Other OB labs wnl. RTC 4 weeks for routine care. Flowsheet Date 09/06/2025 Bauer Score Blood Edema Fundus Height Fundus Units Glucose Ketones Leukocytes Nitrite Labor Signs Protein Cervic Dilation Cervic Effacement Cervic Station Type Weight in lbs Pre/Post Dialysis Refused Weight 164.658069054169 BP Diastolic BP Location Tested BP Systolic [...]
--- NOTE | 2025-09-23 15:47 | PM.OBTRLD ---
OB - Triage/Final Diagnosis Visit Information Date of evaluation: 09/20/25 Reason for evaluation: other (nausea and vomiting) Comments/Additional reasons for admission: I have assessed the risk for this patient, Beata Martinez, and determined that she would benefit from observation care. Evaluation Laboratory results: Laboratory Tests 09/20/25 21:46 WBC 10.1 H RBC 4.14 L Hgb 12.7 Hct 37.7 MCV 91.1 MCH 30.7 MCHC 33.7 RDW 13.1 Plt Count 178 MPV 11.3 H Immature Gran % (Auto) 0.5 Neut % (Auto) 89.2 H Lymph % (Auto) 4.9 L [place] % (Auto) 4.8 Eos % (Auto) 0.3 Baso % (Auto) 0.3 Lymph # (Auto) 0.49 L [place] # (Auto) 0.5 Eos # (Auto) 0.0 Baso # (Auto) 0.0 Abs Immat Gran (auto) 0.05 H Absolute Neuts (auto) 9.0 H Absolute Nucleated RBC 0.000 Nucleated RBC % 0.0 Sodium 134 L Potassium 3.5 Chloride 104 Carbon Dioxide 22 Anion Gap 8 BUN 8 Creatinine 0.70 Estim Creat Clear Calc 99 Estimated GFR > 60 Glucose 101 Calcium 8.5 Total Bilirubin 1.2 AST 21 ALT 13 Alkaline Phosphatase 65 Total Protein 7.1 Albumin 4.2
== END 2025-09-20 23:57 | disposition home or self-care (01) ==
PROVIDERS: Advanced Practice Midwife; Admitting Provider Obstetrics & Gynecology; Visit Provider Obstetrics & Gynecology
DX: O21.8 Other vomiting complicating pregnancy (principal)
CPT/HCPCS: 36415; 80053; 85025; 96374; G0378; G0379; J2405; J7120